=== PATIENT | male | born 1945 | race Caucasian/White ===

== ENCOUNTER 2022-09-20 07:11 | Emergency (ER) | payer MEDICARE, SELFPAY ==
[2022-09-20 07:25] VITALS: BP 155/104; PULSE 110; RESP 18; TEMP 36.7; O2SAT 98; BMI 34.0
[2022-09-20 07:56] VITALS: BP 152/99; PULSE 96; RESP 12; TEMP 36.4; O2SAT 93
[2022-09-20 08:07] LABS: Appearance Urine Clear; Color Urine Yellow; Glucose Urine UA Negative (Negative); Leukocyte Esterase Urine Negative (Negative); Nitrite Urine Negative (Negative); Urine Blood Negative (Negative); Urine Ketones Negative (Negative); Urine Protein Negative (Neg-Trace)
[2022-09-20 10:07] VITALS: BP 182/109; PULSE 94; RESP 16; TEMP 36.4; O2SAT 96
--- NOTE | 2022-09-20 10:53 | ED.MALEGU ---
HPI - Male Genitourinary General Chief complaint: Urogenital-Male Stated complaint: freq urination Time Seen by Provider: 09/20/22 08:55 Source: patient Mode of arrival: ambulatory Limitations: no limitations History of Present Illness HPI Narrative: 76 yold male with pmh of HTN and BPH presents to the ED for increase urinary freqency. patient states yesterday having dribblin stream and freqeunt use to the bathroom. patient denies any abdominal pain, nuasea, vomitting, fever, chills, hematuria, flank pain, penile discharge, or penile lesions. Patient states this morning his stream of urine is improving and becming normal Related Data Allergies Allergy/AdvReac Type Severity Reaction Status Date / Time No Known Allergies Allergy Unverified 06/18/20 14:34 Review of Systems Review of Systems: increase UA frequency Yes all other systems are reviewed and are negative Physical Exam Vital Signs: Vital Signs: Last Vital Signs Temp 97.5 F 09/20/22 10:07 Pulse 94 09/20/22 10:07 Resp 16 09/20/22 10:07 BP 182/109 H 09/20/22 10:07 Pulse Ox 96 09/20/22 10:07 O2 Del Method 09/20/22 10:07 BMI result Body Mass Index 34.0 Const: General: cooperative, healthy appearing, comfortable, no acute distress, well developed, alert, awake and Physically active Orientation/consciousness: oriented to person, oriented to place, oriented to time and patient oriented x3 HEENT: Head: Yes normal to inspection, Yes No palpable skull fracture present, Yes normocephalic, Yes atraumatic and No abrasion Eyes: General: appearance normal, both eyes and all related structures Neck: Neck: Yes normal visual inspection, Yes full ROM, Yes no lymphadenopathy, Yes no meningeal signs, Yes trachea midline, Yes supple, No anterior neck swelling and No tender Chest: Chest palpation & inspection: normal inspection of the chest and normal palpation of entire chest wall Resp: Effort & Inspection: normal respiratory effort and able to speak in complete sentences Auscultation: clear to auscultation bilaterally Cardio: Jugular venous distension: no JVD Heart sounds: S1 normal heart sound present and S2 normal heart sound present GI: Inspection: Yes normal to inspection and No abdominal wall ecchymosis Palpation (GI): Soft to palpation, not firm, nontender, no guarding and not rigid : General: No CVA tenderness and Yes no CVA tenderness Back/Spine/Pelvis: Back: no CVA tenderness, No CVA tenderness and No back tenderness Skin: General skin exam: no rashes or lesions noted, elasticity normal and turgor normal Neuro: Other: NIH score 0. General: oriented to person, oriented to place, oriented to time, patient oriented x3, gait normal, tone normal, moves all extremities, Normal light touch and pain sensation, no meningeal signs, no focal motor deficits, CN's II-XI intact bilaterally and normal sensation to monofilament Cranial nerves: Yes CN's II-XII intact bilaterally Cognition (Neuro): normal cognition Gait exam (Neuro): Normal gait present Motor exam (neuro): 5/5 motor strength present throughout Sensory Exam: Normal double simultaneous stimulation for sensation Extrem: General: Yes normal to inspection and Yes full ROM Psych: Appearance: grossly normal, well kempt and not disheveled Course Course Course Narrative: UA ordered. Reevaluation(s) Reevaluation #1: UA does not show any infection or blood. Not suspecting any kidney stones, urinary tract infection. Patient able to urinate on his own he states urinary stream is improving and getting back to baseline. Postvoid bladder scan 275. Presently patient does not need permanent Cannon but straight cath was offered and patient refused patient states he is feeling better does not feel distended and ill continued to urinate on his own. Patient informed to continue taking terazosin and call urology for follow-up. Patient informed to return to the ED if he has abdominal pain, nausea, vomiting, inability to urinate at all, just sensation of distension,or any other complaints. Patient did not take his high blood pressure medications this morning negative any neuro deficits. Patient informed to take his meds when he gets home. No further evaluation of blood pressure needed. Patient in distress Time: 11:05 Medical Decision Making Lab Data Labs: Lab Results 09/20/22 Range/Units 07:58 Urine Color Yellow Urine Appearance Clear Urine pH 6.0 (5.0-9.0) Ur Specific [place] 1.020 (1.005-1.025) Urine Protein Negative (Neg-Trace) mg/dL Urine Glucose (UA) Negative (Negative) mg/dL Urine Ketones Negative (Negative) mg/dL Urine Blood Negative (Negative) Urine Nitrite Negative (Negative) Ur Leukocyte Esterase Negative (Negative) Discharge Plan Discharge Clinical Impression: Benign prostatic hyperplasia Patient Disposition: Home, Self-Care Instructions: Enlarged Prostate (BPH) (ED) Additional Instructions: Please follow-up with urology. Return to the ED immediately for any abdominal pain, nausea, vomiting, fever, chills, inability to urine, testicular pain, bloody urine, flank pain, slurred speech, facial droop, paralysis of extremities and weakness, dizziness, loss of vision, or any other concerning symptoms. Referrals: [facility] [Provider Group] (BPH) Interventions: ED Discharge Assessment Last Done: 09/20/22 11:13 Discharge Date/Time: 09/20/22 11:14 Print Language: Hungarian
== END 2022-09-20 11:14 | disposition home or self-care (01) ==
PROVIDERS: Emergency Provider Emergency Medicine Emergency Medical Services; PCP Internal Medicine Endocrinology, Diabetes & Metabolism
DX: N40.0 Benign prostatic hyperplasia without lower urinary tract symptoms (principal)
CPT/HCPCS: 51798; 81003; 99283; 99284

== ENCOUNTER 2022-09-25 00:46 | Emergency (ER) | payer MEDICARE, SELFPAY ==
[2022-09-25 00:53] VITALS: BP 170/115; PULSE 86; RESP 16; TEMP 36.5; O2SAT 98; BMI 34.7
--- NOTE | 2022-09-25 01:34 | ED.MALEGU ---
HPI - Male Genitourinary General Chief complaint: Urogenital-Male Stated complaint: difficulty urinating Time Seen by Provider: 09/25/22 01:20 Source: patient Mode of arrival: ambulatory Limitations: no limitations History of Present Illness HPI Narrative: 76-year-old male history of BPH came in for being unable to urinate for the past 12 hours. Patient was seen 5 days ago for similar symptoms patient did not require Cannon catheter since he was able to urinate on his own, patient is already have an appointment with urologist on October 08. No fever, no chills, no abdominal pain, no nausea, no vomiting. Related Data Allergies Allergy/AdvReac Type Severity Reaction Status Date / Time No Known Allergies Allergy Unverified 06/18/20 14:34 Review of Systems Review of Systems: All other systems are reviewed and are negative Constitutional: Reports as per HPI and Reports no additional constitutional complaints Eyes: Reports as per HPI and Reports no additional eye complaints Reports system reviewed and no additional complaints, except as documented Cardiovascular: Reports as per HPI and Reports no additional cardiovascular complaints Respiratory: Reports as per HPI and Reports no additional respiratory complaints Gastrointestinal: Reports as per HPI and Reports no additional gastrointestinal complaints Genitourinary: Reports no additional female genitourinary complaints Musculoskeletal: Reports no additional musculoskeletal complaints Skin/Breast: Reports system reviewed and no additional complaints, except as docu Psychiatric: Reports no additional psychiatric complaints Endocrine: Reports no additional endocrine complaints Hematologic/Lymphatic: Reports no additional hematologic/lymphatic complaints Allergic/Immunologic: Reports no additional allergic/immunologic complaints Reports system reviewed and no additional complaints, except as documented and Reports Abnormal speech present [facility] Social History Social History Alcohol intake: former Smoked in Last 30 Days: No Use of substances other than those prescribed or required for medical reasons: Yes Substance Use Type: Marijuana Substance Use Frequency: Occasionally Last Used Substance: Weeks (ago) Any prior treatment program specific to substance use: No Advance Directives: No Physical Exam Vital Signs: Vital Signs: Last Vital Signs Temp 97.9 F 09/25/22 03:36 Pulse 74 09/25/22 03:36 Resp 16 09/25/22 03:36 BP 159/98 H 09/25/22 03:36 Pulse Ox 95 09/25/22 03:36 O2 Del Method 09/25/22 03:36 BMI result Body Mass Index 34.7 Vital signs have been reviewed as appeared to be correct. Blood pressure elevated. Heart rate normal. Respiration rate normal. Temperature normal. Oxygen saturation normal. Appearance: Alert. Oriented X3. No acute distress. Head: Normal external exam. Normocephalic. Atraumatic. No Hernandez signs noted. No raccoon eyes noted Eyes: PERRLA. EOMI. Conjunctiva and sclera normal. Eyelids normal. ENT: TM's Normal. Pharynx normal. Uvula midline. Moist mucous membranes. No trismus noted. No drooling noted. No muffled voice noted. Neck: Normal inspection. Neck supple. FROM. No adenopathy. Thyroid Normal. No meningeal signs. No neck mass noted. CVS: Normal heart rate and rhythm. Heart sound normal. No murmurs noted. Pulses normal throughout. Respiratory: No respiratory distress. Painless inspiration. Breath sounds normal. No wheezes/rales/rhonchi noted. Chest nontender. No accessory muscle usage noted or decreased air movement noted. Abdomen: Soft and nontender. Bowel sounds normal in all 4 quadrants. No distention noted. No organomegaly noted. No visible injury noted. Back: No CVA tenderness. Full range of motion noted. Skin: Skin warm and dry. Normal skin color. Normal skin turgor. No rashes/lesions/lacerations noted. Extremities: No lower extremity edema. Extremities exhibit normal range of motion. Extremities nontender. Neuro: Oriented X 3. Cranial nerve exam: II-XII are grossly intact No motor deficit. No sensory deficit. Reflexes normal. Course Course Course Narrative: 76-year-old male came in for acute urinary retention Cannon catheter was placed and 1 L of clear urine was drained, patient feels better, the plan was discussed with the patient to keep the Cannon catheter with leg bag and follow up with urologist that he is already have an appointment in 2 weeks. Blood pressure has improved. Medical Decision Making Differential Diagnosis Differential Diagnoses: The differential diagnosis associated with the presentation includes (Acute urinary retention, UTI, MOOK, obstructive stone, prostatic hyperplasia.) Lab Data MDM Lab Attestation statement: I reviewed the patient's lab results. Result Diagrams: 09/25/22 01:28 09/25/22 01:28 Labs: Lab Results 12/09/25/22 09/25/22 Range/Units 01:28 01:28 01:28 WBC 7.1 (4.8-10.8) X10*3/uL RBC 4.33 L (4.60-5.80) X10*6/uL Hgb 13.1 L (14.0-18.0) g/dl Hct 39.4 L (42.0-52.0) % MCV 91.0 (80.0-98.0) fL MCH 30.3 (27.0-33.0) pg MCHC 33.2 (31.0-36.0) g/dl RDW 12.9 (11.0-16.0) % Plt Count 161 (160-400) X10*3/uL MPV 10.7 (9.4-12.4) fL Absolute Nucleated RBC 0.000 (0.0-0.012) X10*3/uL Nucleated RBC % (auto) 0.0 (0.0-0.2) /100WBC Sodium 142 (135-145) mmol/L Potassium 3.9 (3.3-5.1) mmol/L Chloride 107 (96-108) mmol/L Carbon Dioxide 27 (22-29) mmol/L Anion Gap 12 (12-20) BUN 20 H (9-16) mg/dL Creatinine 1.07 (0.5-1.4) mg/dL Estim Creat Clear Calc 86.2 Estimated GFR > 60 Random Glucose 132 H (60-115) mg/dL Calcium 10.8 H (8.4-10.2) mg/dL Urine Color Yellow Urine Appearance Clear Urine pH 5.5 (5.0-9.0) Ur Specific [place] 1.015 (1.005-1.025) Urine Protein Negative (Neg-Trace) mg/dL Urine Glucose (UA) Negative (Negative) mg/dL Urine Ketones Negative (Negative) mg/dL Urine Blood Negative (Negative) Urine Nitrite Negative (Negative) Ur Leukocyte Esterase Negative (Negative) Discharge Plan Discharge Clinical Impression: Acute retention of urine Patient Disposition: Home, Self-Care Instructions: Urinary Retention in Men (ED), Cannon Catheter Placement and Care (ED) Referrals: Annie Vera MD [Physician] -
[2022-09-25 01:36] LABS: Hematocrit 39.4 % (42.0-52.0); Hemoglobin 13.1 g/dl (14.0-18.0); Mean Corpuscular HGB Conc 33.2 g/dl (31.0-36.0); Mean Corpuscular Hemoglobin 30.3 pg (27.0-33.0); Mean Platelet Volume 10.7 fL (9.4-12.4); Platelet Count 161 X10*3/uL (160-400); Red Blood Count 4.33 X10*6/uL (4.60-5.80); Red Cell Distribution Width 12.9 % (11.0-16.0); White Blood Count 7.1 X10*3/uL (4.8-10.8)
[2022-09-25 01:46] LABS: Appearance Urine Clear; Color Urine Yellow; Glucose Urine UA Negative (Negative); Leukocyte Esterase Urine Negative (Negative); Nitrite Urine Negative (Negative); PH 5.5 (5.0-9.0); Specific Gravity - Urine 1.015 (1.005-1.025); Urine Blood Negative (Negative); Urine Ketones Negative (Negative); Urine Protein Negative (Neg-Trace)
[2022-09-25 01:47] LABS: Anion Gap 12 (12-20); Blood Urea Nitrogen 20 mg/dL (9-16); Calcium 10.8 mg/dL (8.4-10.2); Carbon Dioxide 27 mmol/L (22-29); Chloride 107 mmol/L (96-108); Creatinine Clr Calc Pharmacy 86.2; Estimated Glomerular Filt Rate > 60; Glucose Random 132 mg/dL (60-115); Potassium 3.9 mmol/L (3.3-5.1); Sodium 142 mmol/L (135-145)
--- NOTE | 2022-09-25 02:16 | PC.NURSE ---
Bladder scanned by [facility]il tech with >999 mL of urine present in pt's bladder. Results reported to Dr. Ma. ordered to insert F/C 16 Fr, inflate balloon with 10 mL of sterile water. F/C inserted per MD orders with 1400 ml of yellow, clear urine drained in F/C bag after cath insertion. Patient tolerated procedure well and reported relief in pain following F/C insertion.
[2022-09-25 03:36] VITALS: BP 159/98; PULSE 74; RESP 16; TEMP 36.6; O2SAT 95
[2022-09-25 04:14] VITALS: BP 166/106; PULSE 74; RESP 16; TEMP 36.6; O2SAT 95
== END 2022-09-25 04:19 | disposition home or self-care (01) ==
PROVIDERS: Emergency Provider Emergency Medicine; PCP Internal Medicine Endocrinology, Diabetes & Metabolism
DX: R33.9 Retention of urine, unspecified (principal)
CPT/HCPCS: 36415; 80048; 81003; 85027; 99285

== ENCOUNTER 2022-09-25 09:24 | Emergency (ER) | payer MEDICARE, SELFPAY ==
[2022-09-25 09:28] VITALS: BP 151/92; PULSE 102; RESP 18; TEMP 37.1; O2SAT 98; BMI 35.6
--- NOTE | 2022-09-25 09:59 | ED_ITS ---
HPI - Male Genitourinary General Chief complaint: Urogenital-Male Stated complaint: catheter issue Time Seen by Provider: 09/25/22 09:47 Source: patient Mode of arrival: ambulatory History of Present Illness HPI Narrative: 76-year-old male with a past medical history of BPH s/p catheter placement for urinary retention this morning around 01:00AM presenting to the ED as was unable to switch to leg bag at home from overnight bag. Denies fever, chills, nausea, vomiting, abdominal pain, back pain/flank pain. Related Data Allergies Allergy/AdvReac Type Severity Reaction Status Date / Time No Known Allergies Allergy Unverified 06/18/20 14:34 Review of Systems Review of Systems: Constitutional: No Fever, No Chills ENT/Mouth: No Ear Pain, No Nasal Congestion, No Sinus Pain, No Hoarseness, No sore throat, No Rhinorrhea, No Swallowing Difficulty Cardiovascular: No Chest Pain, No SOB Respiratory: No Cough, No Sputum Gastrointestinal: No Nausea, No Vomiting, No Diarrhea, No Constipation, No Abdominal pain Genitourinary: No Dysuria, No Urinary Frequency, No Hematuria, No Urinary Inc ontinence/retention, No Urgency, No Flank Pain Musculoskeletal: No joint pain, No Myalgias, No Joint Swelling Skin: No Skin Lesions, No rash Neuro: No Weakness, No Numbness Yes all other systems are reviewed and are negative Constitutional: Constitutional: Reports as per [facility] Past Medical History Attestation statement: The following information was validated with the patient. Social History Social History Alcohol intake: former Substance Use Type: Marijuana Advance Directives: No Physical Exam Vital Signs: Vital Signs: Last Vital Signs Temp 98.8 F 09/25/22 09:28 Pulse 102 H 09/25/22 09:28 Resp 18 09/25/22 09:28 BP 151/92 H 09/25/22 09:28 Pulse Ox 98 09/25/22 09:28 O2 Del Method 09/25/22 09:28 BMI result Body Mass Index 35.6 Const: General: cooperative, healthy appearing and no acute distress Orientation/consciousness: patient oriented x3 Limitations: no limitations HEENT: Head: Yes normal to inspection and Yes atraumatic Ears: hearing g rossly normal bilaterally General nose exam: Normal external nose present Face and sinus: Yes normal facial exam Eyes: General: appearance normal, both eyes and all related structures EOM: EOMs intact bilaterally Neck: Neck: Yes normal visual inspection and Yes no meningeal signs Resp: Effort & Inspection: normal respiratory effort and no respiratory dist ress Cardio: Rate: regular rate Heart sounds: S1 normal heart sound present and S2 normal heart sound present GI: Inspection: Yes normal to inspection Palpation (GI): Soft to palpation, nontender, no guarding and not rigid Skin: Rashes: no rashes Wounds: no wounds Neuro: General: patient oriented x3, tone normal and no meningeal signs Gait exam (Neuro): Normal gait present Extrem: General: Yes normal to inspection Course Course Course Narrative: -91cc on bladder scan > balbuena bag changed & patient educated on changing, was able to do it himself in the ED Results discussed with patient including worrisome signs and symptoms and strict return precautions, and when to return to the emergency department. They verbalized understanding and feel safe for discharge at this time. Medical Decision Making Medical Decision Making [facility] Narrative: 76-year-old male with a past medical history of BPH s/p catheter placement for urinary retention this morning around 01:00AM presenting to the ED as was unable to switch to leg bag at home from overnight bag. On exam mildly tachycardic, NAD, nontoxic appearing, catheter draining yellow/blood-tinged urine, abdomen soft/nontender. Concern patient may have dislodged Balbuena vs mechanical issue. Lower suspicion for UTI Plan: Bladder scan, switch to leg bag, educate Patient has follow-up with Urology on October 08 Differential Diagnosis Differential Diagnoses: The differential diagnosis associated with the presentation includes Admission/Observation Consideration of admission/observation: Escalation of care including admission/observation considered Discharge Plan Discharge Clinical Impression: Balbuena catheter problem Patient Disposition: Home, Self-Care Instructions: Balbuena Catheter Placement and Care (ED) Additional Instructions: Your catheter bag was changed today in the emergency department, please change at home as instructed. If the bag feels with red/bloody urine, is not feeling, you develop abdominal pain, back pain, or fever return to the emergency department Please follow-up with urology as scheduled Referrals: [facility] [[place] Group] - 1 week Interventions: ED Discharge Assessment Last Done: 12/25/22 10:26 Discharge Date/Time: 12/25/22 10:26
--- NOTE | 2022-09-25 10:14 | PC.NURSE ---
bladder scan performed, pt educated on how to shredding machine knife changer from night bag to leg bag as pt states he was not educated on discharge yesterday. pt was able to return demonstrate of how to do the shredding machine knife changer and was able to appropriately attach the leg bag to his leg as well.
== END 2022-09-25 10:26 | disposition home or self-care (01) ==
PROVIDERS: Emergency Provider Student in an Organized Health Care Education/Training Program; PCP Internal Medicine Endocrinology, Diabetes & Metabolism
DX: T83.028A Displacement of other urinary catheter, initial encounter (principal); R33.9 Retention of urine, unspecified; Y73.8 Miscellaneous gastroenterology and urology devices associated with adverse incidents, not elsewhere classified; Y92.9 Unspecified place or not applicable; Z79.899 Other long term (current) drug therapy
CPT/HCPCS: 36415; 51798; 80048; 81003; 85027; 99283; 99285

== ENCOUNTER 2022-10-09 20:08 | Emergency (ER) | payer MEDICARE, SELFPAY ==
[2022-10-09 20:20] VITALS: BP 155/105; PULSE 87; RESP 20; TEMP 36.4; O2SAT 95; BMI 34.7
--- NOTE | 2022-10-09 20:20 | ED_ITS ---
HPI - Male Genitourinary General Chief complaint: Urogenital-Male Stated complaint: Cannon issues Time Seen by Provider: 10/09/22 21:26 Related Data Home Medications Medication Instructions Recorded Confirmed furosemide 20 mg tablet 20 mg PO DAILY 10/10/22 10/10/22 losartan 100 mg tablet 100 mg PO DAILY 10/10/22 10/10/22 pravastatin 40 mg tablet 40 mg PO DAILY 10/10/22 10/10/22 terazosin 2 mg capsule 2 mg PO BEDTIME 10/10/22 10/10/22 terazosin 5 mg capsule 5 mg PO BEDTIME 10/10/22 10/10/22 Previous Rx's Medication Instructions Recorded cefuroxime axetil 500 mg tablet 500 mg PO BID #14 tabs 10/09/22 finasteride 5 mg tablet 5 mg PO DAILY 90 days #90 tabs 10/10/22 Allergies Allergy/AdvReac Type Severity Reaction Status Date / Time No Known Allergies Allergy Verified 10/10/22 20:54 [facility] Social History Social History Alcohol intake: former Substance Use Type: Marijuana Physical Exam Vital Signs: Vital Signs: Last Vital Signs Temp 97.6 F 10/09/22 20:20 Pulse 87 10/09/22 20:20 Resp 20 10/09/22 20:20 BP 155/105 H 10/09/22 20:20 Pulse Ox 95 10/09/22 20:20 O2 Del Method 10/09/22 20:20 BMI result Body Mass Index 34.7 Course Course Course Narrative: RME-20:21PM - 77-year-old male presenting to the ER with Cannon problems. Reports that when he was showering today he believes it might of came out a little bit. He reports he does not believe it is draining properly. He reports he is having pain since then. He denies any other symptoms related to this. Plan: Patient can be sent to the ER for further evaluation treatment. Medications Administered Discontinued Medications Generic Name Dose Route Start Last Admin Trade Name Freq PRN Reason Stop Dose Admin Cefuroxime Axetil 500 mg 10/09/22 22:34 10/09/22 22:45 Cefuroxime Axetil 500 Mg Tablet PO 10/09/22 22:35 500 mg ONCE ONE Administration Lidocaine HCl 10 ml 10/09/22 21:34 10/09/22 21:58 Lidocaine Hcl 2 % Urojet 10 Ml Jel.Pf.Niels TOPICAL 10/09/22 21:35 10 ml ONCE ONE Administration Medical Decision Making Lab Data Labs: Lab Results 10/09/22 Range/Units 21:59 Urine Color [place] A Urine Appearance Cloudy Urine pH 6.0 (5.0-9.0) Ur Specific [place] 1.015 (1.005-1.025) Urine Protein 100 (2+) H (Neg-Trace) mg/dL Urine Glucose (UA) Negative (Negative) mg/dL Urine Ketones Negative (Negative) mg/dL Urine Blood Large (3+) H (Negative) Urine Nitrite Negative (Negative) Ur Leukocyte Esterase Large (3+) H (Negative) Urine RBC >20 H (0-2) /HPF Urine WBC >50 H (0-5) /HPF Ur Squamous Epith Cells 0-2 (0-2) /HPF Urine Bacteria 4+ (None Seen) Hyaline Casts 0-2 (0-2) /LPF Discharge Plan Discharge Clinical Impression: Acute retention of urine, Urinary tract infection Patient Disposition: Home, Self-Care Instructions: Cannon Catheter Placement and Care (ED) Prescriptions: New cefuroxime axetil 500 mg tablet 500 mg PO BID Qty: 14 0RF No Action furosemide 20 mg tablet 20 mg PO DAILY losartan 100 mg tablet 100 mg PO DAILY pravastatin 40 mg tablet 40 mg PO DAILY terazosin 5 mg capsule 5 mg PO BEDTIME terazosin 2 mg capsule 2 mg PO BEDTIME finasteride 5 mg tablet 5 mg PO DAILY 90 Days Qty: 90 0RF Referrals: Michael Lambert MD [Physician] - Interventions: ED Discharge Assessment Last Done: 10/09/22 22:55 Discharge Date/Time: 10/09/22 22:56
--- NOTE | 2022-10-09 21:35 | ED.MALEGU ---
HPI - Male Genitourinary General Chief complaint: Urogenital-Male Stated complaint: Cannon issues Time Seen by Provider: 10/09/22 21:26 Source: patient Mode of arrival: ambulatory Limitations: no limitations History of Present Illness HPI Narrative: 77-year-old male history of urinary tension Cannon catheter was placed on 09/25/2022 was functioning fine until last night when he was taking a shower and accidentally stepped on a Cannon catheter tube causing it to dislodge and causing bleeding inside the back, there is little discomfort, patient stated that the Cannon is not draining appropriately needs to lean forward in order for the Cannon to drain, patient is not taking blood thinner, patient is scheduled to see a urologist tomorrow. Is still unable to urinate on his own. Related Data Previous Rx's Medication Instructions Recorded cefuroxime axetil 500 mg tablet 500 mg PO BID #14 tabs 10/09/22 Allergies Allergy/AdvReac Type Severity Reaction Status Date / Time No Known Allergies Allergy Verified 10/09/22 20:24 Review of Systems Review of Systems: All other systems are reviewed and are negative Constitutional: Reports as per HPI and Reports no additional constitutional complaints Eyes: Reports as per HPI and Reports no additional eye complaints Reports system reviewed and no additional complaints, except as documented Cardiovascular: Reports as per HPI and Reports no additional cardiovascular complaints Respiratory: Reports as per HPI and Reports no additional respiratory complaints Gastrointestinal: Reports as per HPI and Reports no additional gastrointestinal complaints Genitourinary: Reports no additional female genitourinary complaints Musculoskeletal: Reports no additional musculoskeletal complaints Skin/Breast: Reports system reviewed and no additional complaints, except as docu Psychiatric: Reports no additional psychiatric complaints Endocrine: Reports no additional endocrine complaints Hematologic/Lymphatic: Reports no additional hematologic/lymphatic complaints Allergic/Immunologic: Reports no additional allergic/immunologic complaints Reports system reviewed and no additional complaints, except as documented and Reports Abnormal speech present [facility] Social History Social History Alcohol intake: former Substance Use Type: Marijuana Advance Directives: No Advance Directives Information Provided: Yes Physical Exam Vital Signs: Vital Signs: Last Vital Signs Temp 97.6 F 10/09/22 20:20 Pulse 87 10/09/22 20:20 Resp 20 10/09/22 20:20 BP 155/105 H 10/09/22 20:20 Pulse Ox 95 10/09/22 20:20 O2 Del Method 10/09/22 20:20 BMI result Body Mass Index 34.7 Vital signs have been reviewed as appeared to be correct. Blood pressure normal. Heart rate normal. Respiration rate normal. Temperature normal. Oxygen saturation normal. Appearance: Alert. Oriented X3. No acute distress. Head: Normal external exam. Normocephalic. Atraumatic. No Hernandez signs noted. No raccoon eyes noted Eyes: PERRLA. EOMI. Conjunctiva and sclera normal. Eyelids normal. ENT: TM's Normal. Pharynx normal. Uvula midline. Moist mucous membranes. No trismus noted. No drooling noted. No muffled voice noted. Neck: Normal inspection. Neck supple. FROM. No adenopathy. Thyroid Normal. No meningeal signs. No neck mass noted. CVS: Normal heart rate and rhythm. Heart sound normal. No murmurs noted. Pulses normal throughout. Respiratory: No respiratory distress. Painless inspiration. Breath sounds normal. No wheezes/rales/rhonchi noted. Chest nontender. No accessory muscle usage noted or decreased air movement noted. Abdomen: Soft and nontender. Bowel sounds normal in all 4 quadrants. No distention noted. No organomegaly noted. No visible injury noted. exam: Circumcised, small amount of blood on the meatus, no active bleeding. Back: No CVA tenderness. Full range of motion noted. Skin: Skin warm and dry. Normal skin color. Normal skin turgor. No rashes/lesions/lacerations noted. Extremities: No lower extremity edema. Extremities exhibit normal range of motion. Extremities nontender. Neuro: Oriented X 3. Cranial nerve exam: II-XII are grossly intact No motor deficit. No sensory deficit. Reflexes normal. Course Course Course Narrative: Will replace the Cannon catheter. Start on cefuroxime for UTI. Medications Administered Discontinued Medications Generic Name Dose Route Start Last Admin Trade Name Freq PRN Reason Stop Dose Admin Lidocaine HCl 10 ml 10/09/22 21:34 10/09/22 21:58 Lidocaine Hcl 2 % Urojet 10 Ml Jel.Pf.Niels TOPICAL 10/09/22 21:35 10 ml ONCE ONE Administration Medical Decision Making Differential Diagnosis Differential Diagnoses: The differential diagnosis associated with the presentation includes (Urine retention, UTI, urethral bleeding, Cannon catheter replacement.) Lab Data Labs: Lab Results 10/09/22 Range/Units 21:59 Urine Color [place] A Urine Appearance Cloudy Urine pH 6.0 (5.0-9.0) Ur Specific [place] 1.015 (1.005-1.025) Urine Protein 100 (2+) H (Neg-Trace) mg/dL Urine Glucose (UA) Negative (Negative) mg/dL Urine Ketones Negative (Negative) mg/dL Urine Blood Large (3+) H (Negative) Urine Nitrite Negative (Negative) Ur Leukocyte Esterase Large (3+) H (Negative) Urine RBC >20 H (0-2) /HPF Urine WBC >50 H (0-5) /HPF Ur Squamous Epith Cells 0-2 (0-2) /HPF Urine Bacteria 4+ (None Seen) Hyaline Casts 0-2 (0-2) /LPF Discharge Plan Discharge Clinical Impression: Acute retention of urine, Urinary tract infection Patient Disposition: Home, Self-Care Instructions: Cannon Catheter Placement and Care (ED) Prescriptions: New cefuroxime axetil 500 mg tablet 500 mg PO BID Qty: 14 0RF Referrals: Michael Lambert MD [Physician] -
[2022-10-09] MEDS: Lidocaine HCl 2 % Urojet 10 ML JEL.PF.APP TOPICAL (21:58)
--- NOTE | 2022-10-09 21:58 | PC.NURSE ---
Patient reports F/C is not working properly. 16 F/C replaced with new 16 Fr F/C, balloon inflated with 10 mL of sterile water, 250 mL of blood tinged urine noted in a new balbuena cath bag. Urine specimen collected and sent to lab by fuel retrofitting technician.
[2022-10-09 22:17] LABS: Bacteria Urine 4+ (None Seen); Hyaline Casts Urine 0-2 /LPF (0-2); RBC Urine >20 /HPF (0-2); Squamous Epithelial Cell Urine 0-2 /HPF (0-2); WBC Urine >50 /HPF (0-5)
[2022-10-09 22:20] LABS: Appearance Urine Cloudy; Color Urine Orange; Glucose Urine UA Negative (Negative); Leukocyte Esterase Urine Large (3+) (Negative); Nitrite Urine Negative (Negative); Specific Gravity - Urine 1.015 (1.005-1.025); UACC Culture Trigger YES; UMIC TRIGGER UACC YES; Urine Blood Large (3+) (Negative); Urine Ketones Negative (Negative); Urine Protein 100 (2+) mg/dL (Neg-Trace)
== END 2022-10-09 22:56 | disposition home or self-care (01) ==
PROVIDERS: Emergency Provider Emergency Medicine
DX: R33.9 Retention of urine, unspecified (principal); N39.0 Urinary tract infection, site not specified; Z79.899 Other long term (current) drug therapy
CPT/HCPCS: 81001; 87086; 87088; 87186; 99284

== ENCOUNTER → 2022-10-10 14:14 | Outpatient (BNVA) | payer MEDICARE, SELFPAY | PROVIDERS: PCP Internal Medicine Endocrinology, Diabetes & Metabolism; Visit Provider Nurse Practitioner Family | DX: N40.1 Benign prostatic hyperplasia with lower urinary tract symptoms (principal); R33.9 Retention of urine, unspecified | CPT/HCPCS: 99202 ==

== ENCOUNTER 2022-10-14 16:06 | Emergency (ER) | payer MEDICARE, SELFPAY ==
[2022-10-14 16:33] VITALS: BP 104/72; PULSE 99; RESP 18; TEMP 36.9; O2SAT 96; BMI 34.7
--- NOTE | 2022-10-14 16:35 | ED_ITS ---
HPI - General Adult General Chief complaint: General Medical <Juliane Kong NP - Last Filed: 10/14/22 16:37> Stated complaint: balbuena catheter isn't draining <Juliane Kong NP - Last Filed: 10/14/22 16:37> Time Seen by Provider: 10/14/22 17:20 <Juliane Kong NP - Last Filed: 10/14/22 16:37> Source: patient <ALEX Rasmussen - Last Filed: 10/14/22 18:36> Mode of arrival: ambulatory <ALEX Rasmussen - Last Filed: 10/14/22 18:36> Limitations: no limitations <ALEX Rasmussen Last Filed: 10/14/22 18:36> History of Present Illness HPI narrative: 77 yo male with history of BPH with acute urinary retention requiring Balbuena catheter on 09/25/22 who presents to the ER for evaluation of his Balbuena not draining for the last several hours after he accidentally stepped on the tubing. He feels like his bladder is full. He reports some trickling of blood at the tip of his penis and soreness there. He does not have any urine in the Balbuena bag since noon time. He just saw Urology in the office this week with a plan for a voiding trial in 2 weeks. He is on medications for his prostate. He denies any nausea, vomiting, fever, chills. He has suprapubic discomfort due to bladder distention. <ALEX Rasmussen - Last Filed: 10/14/22 18:36> MD complaint: Balbuena catheter not draining <ALEX Rasmussen - Last Filed: 10/14/22 18:36> Onset (ago): hour(s) <ALEX Rasmussen Last Filed: 10/14/22 18:36> Location: pelvis and genitals <ALEX Rasmussen Last Filed: 10/14/22 18:36> Severity: moderate <ALEX Rasmussen Last Filed: 10/14/22 18:36> Severity scale (1-10): 5 <ALEX Rasmussen Last Filed: 10/14/22 18:36> Quality: aching <ALEX Rasmussen - Last Filed: 10/14/22 18:36> Pain Consistency: constant <ALEX Rasmussen - Last Filed: 10/14/22 18:36> Relieving factors: none <ALEX Rasmussen - Last Filed: 10/14/22 18:36> Exacerbating factors: none <ALEX Rasmussen - Last Filed: 10/14/22 18:36> Associated symptoms: other (Anxiety) <ALEX Rasmussen - Last Filed: 10/14/22 18:36> Treatments prior to arrival: none <ALEX Rasmussen - Last Filed: 10/14/22 18:36> Related Data Home medications: Home Medications Medication Instructions Recorded Confirmed furosemide 20 mg tablet 20 mg PO DAILY 10/10/22 10/10/22 losartan 100 mg tablet 100 mg PO DAILY 10/10/22 10/10/22 pravastatin 40 mg tablet 40 mg PO DAILY 10/10/22 10/10/22 terazosin 2 mg capsule 2 mg PO BEDTIME 10/10/22 10/10/22 terazosin 5 mg capsule 5 mg PO BEDTIME 10/10/22 10/10/22 Previous Rx's Medication Instructions Recorded cefuroxime axetil 500 mg tablet 500 mg PO BID #14 tabs 10/09/22 finasteride 5 mg tablet 5 mg PO DAILY 90 days #90 tabs 10/10/22 <Juliane Kong NP - Last Filed: 10/14/22 16:37> Allergies/adverse reactions: Allergies Allergy/AdvReac Type Severity Reaction Status Date / Time No Known Allergies Allergy Verified 10/10/22 20:54 <Juliane Kong NP - Last Filed: 10/14/22 16:37> Review of Systems Review of Systems: Yes all other systems are reviewed and are negative <ALEX Rasmussen - Last Filed: 10/14/22 18:36> [facility] Social History Social History: Social History Alcohol intake: former Substance Use Type: Marijuana Advance Directives: No Advance Directives Information Provided: No <Juliane Kong NP - Last Filed: 10/14/22 16:37> Physical Exam ED Vital Signs: Vital Signs - 24 hr 10/14/22 16:33 Temperature 98.4 F Pulse Rate 99 Respiratory Rate 18 Blood Pressure 104/72 Pulse Oximetry 96 Oxygen Delivery Method Room Air BMI result Body Mass Index 34.7 <Juliane Kong NP - Last Filed: 10/14/22 16:37> Vital Signs - 24 hr 10/14/22 16:33 Temperature 98.4 F Pulse Rate 99 Respiratory Rate 18 Blood Pressure 104/72 Pulse Oximetry 96 Oxygen Delivery Method Room Air BMI result Body Mass Index 34.7 <ALEX Rasmussen - Last Filed: 10/14/22 18:36> Appearance: Alert. Oriented X3. No acute distress. HEENT: Normal external inspection CVS: Normal heart rate and rhythm. Pulses normal. Respiratory: No respiratory distress. Breath sounds normal. Abdomen: Soft with suprapubic tenderness, mild fullness noted. Normal +BS x4 : Dried blood in the patient's underwear, small amounts. Urethral meatus with some dried blood at the tip. Balbuena catheter in place with no urine draining, bag is empty. Skin: Skin warm and dry. Normal skin color. Normal skin turgor. No rashes. Extremities: No lower extremity edema. Neuro: Oriented X 3. Grossly normal, nonfocal <ALEX Rasmussen - Last Filed: 10/14/22 18:36> Course Course Course Narrative: This is a rapid medical exam. Defer additional HPI, ROS, PE to primary provider. 77 yo male who has chronic balbuena here because he is concerned his balbuena catheter is dislodged because it is not draining. He tells me he pulled on it today because it was wrapped around his leg which he believes dislodged it. No abdominal pain, feels well otherwise. VSS <Juliane Kong NP - Last Filed: 10/14/22 16:37> Reevaluation(s) Reevaluation #1: Sixteen [place] Balbuena catheter was removed. Patient attempted to void but was unsuccessful. Replacement of a 16 [place] Balbuena was attempted and was unsuccessful. Ultimately a 16 [place] coude catheter was placed with success. Patient tolerated well. Clear yellow urine is draining with tiny blood clots. No gross hematuria. He is on antibiotics for UTI at this time. He has follow-up with Urology. At this time is stable for discharge home. <ALEX Rasmussen - Last Filed: 10/14/22 18:36> Medications Administered Discontinued Medications Generic Name Dose Route Start Last Admin Trade Name Freq PRN Reason Stop Dose Admin Lidocaine HCl 1 appl 10/14/22 17:37 10/14/22 18:26 Lidocaine Hcl 4 % [id number] 4 Ml TOPICAL 10/14/22 17:38 Not Given ONCE ONE Lidocaine HCl 10 ml 10/14/22 18:15 10/14/22 18:26 Lidocaine Hcl 2 % Urojet 10 Ml Jel.Pf.Niels TOPICAL 10/14/22 18:16 10 ml ONCE ONE Administration <Juliane Kong NP - Last Filed: 10/14/22 16:37> Medications Administered Discontinued Medications Generic Name Dose Route Start Last Admin Trade Name Freq PRN Reason Stop Dose Admin Lidocaine HCl 1 appl 10/14/22 17:37 10/14/22 18:26 Lidocaine Hcl 4 % [id number]-H-[id number] 4 Ml TOPICAL 10/14/22 17:38 Not Given ONCE ONE Lidocaine HCl 10 ml 10/14/22 18:15 10/14/22 18:26 Lidocaine Hcl 2 % Urojet 10 Ml Jel.Pf.Niels TOPICAL 10/14/22 18:16 10 ml ONCE ONE Administration <ALEX Rasmussen - Last Filed: 10/14/22 18:36> Procedures Catheter Insertion (Urinary) Date of insertion: 10/14/22 <ALEX Rasmussen - Last Filed: 10/14/22 18:36> Time of insertion: 18:25 <ALEX Rasmussen - Last Filed: 10/14/22 18:36> Reason for placing: Yes <ALEX Rasmussen - Last Filed: 10/14/22 18:36> Reason for placing indwelling catheter: Acute urinary retention <ALEX Rasmussen - Last Filed: 10/14/22 18:36> Bladder scan/ultrasound used before catheterization: No <ALEX Rasmussen - Last Filed: 10/14/22 18:36> Antiseptic solution prep: Povidone-Iodine <ALEX Rasmussen - Last Filed: 10/14/22 18:36> Topical anesthesia used: Yes <ALEX Rasmussen Last Filed: 10/14/22 18:36> Catheter type/location: Coude <ALEX Rasmussen - Last Filed: 10/14/22 18:36> Size ([place] African): 16 <ALEX Rasmussen Last Filed: 10/14/22 18:36> Catheter balloon amount: 10 <ALEX Rasmussen Last Filed: 10/14/22 18:36> Results: successfully catheterized-immediate flow and retried with different size/type catheter <ALEX Rasmussen Last Filed: 10/14/22 18:36> Procedure performed: without complications <ALEX Rasmussen - Last Filed: 10/14/22 18:36> Comment: regular 16 japanese would not pass, successful placement w/ coude <ALEX Rasmussen - Last Filed: 10/14/22 18:36> Medical Decision Making Medical Decision Making MDM Narrative: 77-year-old male with acute onset of urinary retention due to BPH requiring Balbuena catheter placement on [place] presents to the ER for malfunctioning Balbuena after stepping on it. Most likely due to trauma and dislodgement. Less likely obstruction, UTI <ALEX Rasmussen - Last Filed: 10/14/22 18:36> Differential Diagnosis Differential Diagnoses: The differential diagnosis associated with the presentation includes <ALEX Rasmussen Last Filed: 10/14/22 18:36> Traumatic dislodgement, up against bladder wall, UTI, obstruction, false track <ALEX Rasmussen Last Filed: 10/14/22 18:36> External Record Review External record reviewed: Inpatient record, Office record and Outpatient record <ALEX Rasmussen Last Filed: 10/14/22 18:36> Prescription Management I considered prescription management with: Pain Medication and Antibiotic <ALEX Rasmussen Last Filed: 10/14/22 18:36> Critical Care Time Critical Care Time Critical Care Time: No <ALEX Rasmussen Last Filed: 10/14/22 18:36> Discharge Plan Discharge Clinical Impression: Displacement of Balbuena catheter <Juliane Kong NP - Last Filed: 10/14/22 16:37> Patient Disposition: Home, Self-Care <Juliane Kong NP - Last Filed: 10/14/22 16:37> Instructions: Urinary Retention in Men (ED), Enlarged Prostate (BPH) (ED) <Juliane Kong NP - Last Filed: 10/14/22 16:37> Additional Instructions: Your catheter was replaced today. Recommend following up with Urology in 2 weeks as scheduled for a voiding trial. <Juliane Kong NP - Last Filed: 10/14/22 16:37> Prescriptions: No Action cefuroxime axetil 500 mg tablet 500 mg PO BID Qty: 14 0RF furosemide 20 mg tablet 20 mg PO DAILY losartan 100 mg tablet 100 mg PO DAILY pravastatin 40 mg tablet 40 mg PO DAILY terazosin 5 mg capsule 5 mg PO BEDTIME terazosin 2 mg capsule 2 mg PO BEDTIME finasteride 5 mg tablet 5 mg PO DAILY 90 Days Qty: 90 0RF <Juliane Kong NP - Last Filed: 10/14/22 16:37>
[2022-10-14] MEDS: Lidocaine HCl 2 % Urojet 10 ML JEL.PF.APP TOPICAL (18:26)
== END 2022-10-14 19:03 | disposition home or self-care (01) ==
PROVIDERS: Emergency Provider Emergency Medicine
DX: T83.028A Displacement of other urinary catheter, initial encounter (principal); Y73.2 Prosthetic and other implants, materials and accessory gastroenterology and urology devices associated with adverse incidents; Y92.9 Unspecified place or not applicable; Z79.899 Other long term (current) drug therapy
CPT/HCPCS: 51702; 99284

== ENCOUNTER → 2022-10-24 09:20 | Outpatient (BNVA) | payer MEDICARE, SELFPAY | PROVIDERS: PCP Internal Medicine Endocrinology, Diabetes & Metabolism; Visit Provider Nurse Practitioner Family | DX: R33.9 Retention of urine, unspecified (principal) | CPT/HCPCS: 51700; 51798 ==

== ENCOUNTER → 2022-11-25 08:48 | Outpatient (BNVA) | payer MEDICARE, SELFPAY | PROVIDERS: PCP Internal Medicine Endocrinology, Diabetes & Metabolism; Visit Provider Urology | DX: N40.1 Benign prostatic hyperplasia with lower urinary tract symptoms (principal); R33.8 Other retention of urine | CPT/HCPCS: 51702; 52000; 99212 ==

== ENCOUNTER → 2022-12-30 08:59 | Outpatient (BNVA) | payer MEDICARE, SELFPAY | PROVIDERS: PCP Internal Medicine Endocrinology, Diabetes & Metabolism; Visit Provider Urology | DX: R33.9 Retention of urine, unspecified (principal) | CPT/HCPCS: 51700; 51702; 99212 ==

== ENCOUNTER → 2023-01-27 08:58 | Outpatient (BNVA) | payer MEDICARE, SELFPAY | PROVIDERS: PCP Internal Medicine Endocrinology, Diabetes & Metabolism; Visit Provider Urology | DX: N40.1 Benign prostatic hyperplasia with lower urinary tract symptoms (principal); R33.9 Retention of urine, unspecified | CPT/HCPCS: 51700; 99212 ==

== ENCOUNTER 2023-04-18 12:08 | Outpatient (REF) | payer MEDICARE, SELFPAY ==
[2023-04-18 13:13] LABS: Appearance Urine Cloudy; Color Urine Yellow; Glucose Urine UA Negative (Negative); Leukocyte Esterase Urine Large (3+) (Negative); Nitrite Urine Positive (Negative); Specific Gravity - Urine 1.015 (1.005-1.025); UMIC TRIGGER UA YES; Urine Blood Negative (Negative); Urine Ketones Negative (Negative); Urine Protein Trace mg/dL (Neg-Trace)
[2023-04-18 13:16] LABS: Bacteria Urine 4+ (None Seen); Hyaline Casts Urine 0-2 /LPF (0-2); Squamous Epithelial Cell Urine 0-2 /HPF (0-2); WBC Urine >50 /HPF (0-5)
== END 2023-04-18 12:09 | disposition home or self-care (01) ==
LOC: HO.LAB 12:08
PROVIDERS: PCP Internal Medicine Endocrinology, Diabetes & Metabolism; Visit Provider Urology
DX: R39.9 Unspecified symptoms and signs involving the genitourinary system (principal); R31.29 Other microscopic hematuria
CPT/HCPCS: 81001; 87086; 87088; 87186

== ENCOUNTER 2023-07-26 09:00 | Outpatient (AMB) | payer MEDICARE, SELFPAY ==
--- NOTE | 2023-07-26 09:14 | A.OFFVIS_ITS ---
Intake Intake Visit Reasons: 6m/retention/vt Intake Note: Patient is Present for Follow Up Urology Medication: Finasteride, Terazosin Antibiotic Allergies: None Blood Thinners: None [facility]acy: [facility] Patient self Cath Allergies No Known Allergies Allergy (Verified 07/26/23 09:17) HPI HPI Comments History of Present Illness Details Artis is a pleasant male. He is a patient of Dr. Galenao. Presents for the following urologic conditions - lower urinary tract symptoms with urin sara retention - bladder diverticulum - neurogenic blad bernardino Doing well with clean intermittent catheterization Remarked that he felt anxious prior to doing therapy and now he finds it 2nd nature Has been very helpful to let him sleep 6 month follow-up Expected to maintain clean intermittent catheterization for the foreseeable future Lower urinary tract symptoms Episode of retention seen through emergency room Cannon catheter placed with 1 L Happened in September 2022 Had been on terazosin for many years 5 mg Current therapy finasteride 11/24 cystoscopy with large bladder diver ticulum and cellules Started [facility] 05/24 [facility] Social History Alcohol intake: former Substance Use Type: Marijuana Review of Systems Const Denies chills and Denies fever(s) Card Reports no additional complaints and Denies syncope Resp Denies cough GI Denies abdominal pain and Denies heartburn Reports as per HPI and Denies change in libido Neuro Denies syncope Psych Denies change in libido Endo Denies change in libido Physical Exam Const General: cooperative, healthy appearing, comfortable and no acute distress Orientation/consciousness: patient oriented x3 HEENT Face and sinus: Yes normal facial exam Mouth: moist mucous membranes Neck Neck: Yes normal visual inspection, Yes full ROM and Yes trachea midline Chest Chest palpation & inspection: normal inspection of the chest Resp Effort & Inspection: normal respiratory effort, able to speak in complete sentences and no respiratory distress GI Inspection: Yes normal to inspection Back/Spine/Pelvis Cervical Spine: normal cervical lordosis Thoracic/Lumbar Spine: thoracic and lumbar spine normal to inspection Skin General skin exam: no rashes or lesions noted Neuro General: patient oriented x3, gait normal, tone normal and moves all extremities Extrem General: Yes normal to inspection and Yes capillary refill normal Assessment & Plan Assessment & Plan (1) BPH (benign prostatic hyperplasia): Code(s): N40.0 - Benign prostatic hyperplasia without lower urinary tract symptoms Qualifiers: Lower urinary tract symptom presence: symptoms present Lower urinary tract symptom detail: weak urinary stream Qualified Code(s): N40.1 - Benign prostatic hyperplasia with lower urinary tract symptoms; R39.12 - Poor urinary stream (2) Urinary retention: Code(s): R33.9 - Retention of urine, unspecified Plan six-month follow-up Patient Instructions: Imaging studies, laboratory and physical exam results were discussed and reviewed in detail. No major barriers to patient understanding were identified. An opportunity to ask questions regarding the treatment plan was provided. All questions were answered. The patient expressed understanding and agreement with the above treatment plan. The patient is aware they should contact our office by phone for worsening of their current condition or the appearance of new urologic symptoms. Compliance is encouraged with any medications and followup testing that is ordered. It is a privilege to participate in the urologic care of your patient. If you have any questions or concerns regarding treatment for the above conditions, or other urologic issues, please do not hesitate to contact me. The office telephone contact is [phone]. This note is constructed using voice recognition software. While every effort has been made to ensure accuracy private branch exchange service advisor errors may have been included. Yours sincerely, Dr Michael Lambert MD, JEAN CARLOS [facility] - Urology Providers of Expert, Compassionate Care for the Genitourinary System Coding Level of Care Code Est Pt Level 3 (89749) Diagnoses Benign prostatic hyperplasia with weak urinary stream N40.1; R39.12 Lower urinary tract symptom presence: symptoms present Lower urinary tract symptom detail: weak urinary stream Urinary retention R33.9
== END 2023-07-26 10:05 | disposition home or self-care (01) ==
PROVIDERS: Visit Provider Urology
DX: N40.1 Benign prostatic hyperplasia with lower urinary tract symptoms (principal); R39.12 Poor urinary stream; R33.9 Retention of urine, unspecified
CPT/HCPCS: 99213

== ENCOUNTER → 2023-07-26 09:00 | Outpatient (BNVA) | payer MEDICARE, SELFPAY | PROVIDERS: Visit Provider Urology | DX: N40.1 Benign prostatic hyperplasia with lower urinary tract symptoms (principal); R39.12 Poor urinary stream; R33.9 Retention of urine, unspecified | CPT/HCPCS: 99212 ==

== ENCOUNTER 2023-12-12 15:53 | Outpatient (REF) | payer MEDICARE, SELFPAY ==
[2023-12-12 17:25] LABS: Appearance Urine Turbid; Color Urine Dark Yellow; Glucose Urine UA Negative (Negative); Leukocyte Esterase Urine Moderate (2+) (Negative); Nitrite Urine Negative (Negative); Specific Gravity - Urine 1.025 (1.005-1.025); UMIC TRIGGER UA YES; Urine Blood Small (1+) (Negative); Urine Ketones Trace mg/dL (Negative); Urine Protein 100 (2+) mg/dL (Neg-Trace)
[2023-12-12 17:29] LABS: Bacteria Urine 4+ (None Seen); Hyaline Casts Urine 0-2 /LPF (0-2); RBC Urine >20 /HPF (0-2); Squamous Epithelial Cell Urine 0-2 /HPF (0-2); WBC Urine >50 /HPF (0-5)
== END 2023-12-12 15:54 | disposition home or self-care (01) ==
LOC: HO.LAB 15:53
PROVIDERS: Visit Provider Urology
DX: R33.9 Retention of urine, unspecified (principal)
CPT/HCPCS: 81001; 87086; 87088; 87186

== ENCOUNTER → 2023-12-13 11:29 | Outpatient (BNVA) | payer MEDICARE, SELFPAY | PROVIDERS: PCP Internal Medicine Endocrinology, Diabetes & Metabolism; Visit Provider Urology | DX: R33.9 Retention of urine, unspecified (principal) | CPT/HCPCS: 51798 ==

== ENCOUNTER 2024-01-25 08:16 | Outpatient (AMB) | payer MEDICARE, SELFPAY ==
--- NOTE | 2024-01-25 08:21 | A.OFFVIS_ITS ---
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 He is a patient of Dr. Galeano. Presents for the following urologic conditions - lower urinary tract symptoms with urinary retention - bladder diverticulum - neurogenic bladder Doing well with clean intermittent catheterization Six-month follow-up Expected to maintain clean intermittent catheterization for the foreseeable future Episode of infection December 2023. Treated with Macrobid. Placed on vitamin-C and methenamine which appears to be helpful Lower urinary tract symptoms Episode of retention seen through emergency room Cannon catheter placed with 1 L Happened in September 2022 Had been on terazosin for many years 5 mg Current therapy finasteride 11/24 cystoscopy with large bladder diverticulum and cellules Started [facility] 05/24 [facility] Social History Alcohol intake: former Substance Use Type: Marijuana Review of Systems Const Denies chills and Denies fever(s) Card Reports no additional complaints and Denies syncope Resp Denies cough GI Denies abdominal pain and Denies heartburn Reports as per HPI and Denies change in libido Neuro Denies syncope Psych Denies change in libido Endo Denies change in libido Physical Exam Const General: cooperative, healthy appearing, comfortable and no acute distress Orientation/consciousness: patient oriented x3 HEENT Face and sinus: Yes normal facial exam Mouth: moist mucous membranes Neck Neck: Yes normal visual inspection, Yes full ROM and Yes trachea midline Chest Chest palpation & inspection: normal inspection of the chest Resp Effort & Inspection: normal respiratory effort, able to speak in complete sentences and no respiratory distress GI Inspection: Yes normal to inspection Back/Spine/Pelvis Cervical Spine: normal cervical lordosis Thoracic/Lumbar Spine: thoracic and lumbar spine normal to inspection Skin General skin exam: no rashes or lesions noted Neuro General: patient oriented x3, gait normal, tone normal and moves all extremities Extrem General: Yes normal to inspection and Yes capillary refill normal Assessment & Plan Assessment & Plan (1) BPH (benign prostatic hyperplasia): Code(s): N40.0 - Benign prostatic hyperplasia without lower urinary tract symptoms Category: Medical Qualifiers: Lower urinary tract symptom presence: symptoms present Lower urinary tract symptom detail: weak urinary stream Qualified Code(s): N40.1 - Benign prostatic hyperplasia with lower urinary tract symptoms; R39.12 - Poor urinary stream (2) Urinary retention: Code(s): R33.9 - Retention of urine, unspecified Category: Medical (3) Chronic UTI (urinary tract infection): Code(s): N39.0 - Urinary tract infection, site not specified Category: Medical Plan Six-month follow-up Patient Instructions: Imaging studies, laboratory and physical exam results were discussed and reviewed in detail. No major barriers to patient understanding were identified. An opportunity to ask questions regarding the treatment plan was provided. All questions were answered. The patient expressed understanding and agreement with the above treatment plan. The patient is aware they should contact our office by phone for worsening of their current condition or the appearance of new urologic symptoms. Compliance is encouraged with any medications and followup testing that is ordered. It is a privilege to participate in the urologic care of your patient. If you have any questions or concerns regarding treatment for the above conditions, or other urologic issues, please do not hesitate to contact me. The office telephone contact is [phone]. This note is constructed using voice recognition software. While every effort has been made to ensure accuracy safety associate errors may have been included. Yours sincerely, Dr Michael Lambert MD, JEAN CARLOS [facility] - Urology Providers of Expert, Compassionate Care for the Genitourinary System Coding Level of Care Code Est Pt Level 3 (43126) Complex EM visit Add On G2211 Diagnoses Benign prostatic hyperplasia with weak urinary stream N40.1; R39.12 Lower urinary tract symptom presence: symptoms present Lower urinary tract symptom detail: weak urinary stream Urinary retention R33.9 Chronic UTI (urinary tract infection) N39.0
== END 2024-01-25 08:57 | disposition home or self-care (01) ==
PROVIDERS: PCP Internal Medicine Endocrinology, Diabetes & Metabolism; Visit Provider Urology
DX: N40.1 Benign prostatic hyperplasia with lower urinary tract symptoms (principal); R39.12 Poor urinary stream; R33.9 Retention of urine, unspecified; N39.0 Urinary tract infection, site not specified
CPT/HCPCS: 99213; G2211

== ENCOUNTER → 2024-01-25 08:16 | Outpatient (BNVA) | payer MEDICARE, SELFPAY | PROVIDERS: PCP Internal Medicine Endocrinology, Diabetes & Metabolism; Visit Provider Urology | DX: N40.1 Benign prostatic hyperplasia with lower urinary tract symptoms (principal); R39.12 Poor urinary stream; R33.8 Other retention of urine; N39.0 Urinary tract infection, site not specified | CPT/HCPCS: 99212 ==

== ENCOUNTER 2024-07-26 08:50 | Outpatient (AMB) | payer MEDICARE, SELFPAY ==
--- NOTE | 2024-07-26 08:50 | MHC.OFFVIS ---
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 He is a patient of Dr. Galeano. Presents for the following urologic conditions - lower urinary tract symptoms with urinary retention - bladder diverticulum - neurogenic bladder Telemedicine Evaluation 15 min Consultation [employer] Niels Video Doing well with clean intermittent catheterization Six-month follow-up - no infections Expected to maintain clean intermittent catheterization for the foreseeable future - 4-5 x a day Continue with six-month surveillance Lower urinary tract symptoms Episode of retention seen through emergency room Cannon catheter placed with 1 L Happened in September 2022 Had been on terazosin for many years 5 mg Current therapy finasteride 11/24 cystoscopy with large bladder diverticulum and cellules Started [facility] 05/24 [facility] Social History Alcohol intake: former Substance Use Type: Marijuana Review of Systems Const All systems reviewed & are unremarkable except as noted in HPI and below Reports no additional complaints Resp Reports no additional complaints GI Reports no additional complaints Reports as per HPI Musc Reports no additional complaints Physical Exam Telemedicine evaluation Appropriate responses Regular breathing rate and rhythm HEENT Head: Yes normal to inspection Ears: hearing grossly normal bilaterally Eyes General: appearance normal, both eyes and all related structures Neck Neck: Yes normal visual inspection Chest Chest palpation & inspection: normal inspection of the chest Resp Effort & Inspection: normal respiratory effort and able to speak in complete sentences Telehealth Telehealth Telehealth Platform: [employer] Location of provider rendering services: practice address Location of patient: address on file Patient Identification confirmed using: Name, : Yes Telehealth method: video Patient verbally consented to treatment: Yes Patient verbally consented to billing insurance company: Yes Patient informed of any privacy concerns related to visit: Yes Minutes spent on Phone/Video with Pt.: 15 Assessment & Plan Assessment & Plan (1) Urinary retention: Code(s): R33.9 - Retention of urine, unspecified Category: Medical (2) BPH (benign prostatic hyperplasia): Code(s): N40.0 - Benign prostatic hyperplasia without lower urinary tract symptoms Category: Medical Qualifiers: Lower urinary tract symptom presence: symptoms present Lower urinary tract symptom detail: weak urinary stream Qualified Code(s): N40.1 - Benign prostatic hyperplasia with lower urinary tract symptoms; R39.12 - Poor urinary stream Plan Continue finasteride Six-month follow-up office Medications: Refilled finasteride 5 mg PO DAILY 90 days 90 tabs 1RF N32.0 - Bladder-neck obstruction ascorbate calcium (vitamin C) 500 mg PO DAILY 90 days 90 tabs 1RF UTI suppression, daily catheterization Discontinued methenamine hippurate Discontinued Reason: Patient Completed Course 1 g PO DAILY 90 days 90 tabs 1RF UTI suppression, daily catheterization Patient Instructions: Imaging studies, laboratory and physical exam results were discussed and reviewed in detail. No major barriers to patient understanding were identified. An opportunity to ask questions regarding the treatment plan was provided. All questions were answered. The patient expressed understanding and agreement with the above treatment plan. The patient is aware they should contact our office by phone for worsening of their current condition or the appearance of new urologic symptoms. Compliance is encouraged with any medications and followup testing that is ordered. It is a privilege to participate in the urologic care of your patient. If you have any questions or concerns regarding treatment for the above conditions, or other urologic issues, please do not hesitate to contact me. The office telephone contact is [phone]. This note is constructed using voice recognition software. While every effort has been made to ensure accuracy mule spinner errors may have been included. Yours sincerely, Dr Michael Lambert MD, JE[facility] CAR[facility] - Urology Providers of Expert, Compassionate Care for the Genitourinary System Coding Level of Care Code Tele Est Pt Level 3 (20676) Diagnoses Urinary retention R33.9 Benign prostatic hyperplasia with weak urinary stream N40.1; R39.12 Lower urinary tract symptom presence: symptoms present Lower urinary tract symptom detail: weak urinary stream
== END 2024-07-26 09:38 | disposition home or self-care (01) ==
LOC: HO.HUSH 08:50
PROVIDERS: PCP Internal Medicine Endocrinology, Diabetes & Metabolism; Visit Provider Urology
DX: R33.9 Retention of urine, unspecified (principal); N40.1 Benign prostatic hyperplasia with lower urinary tract symptoms; R39.12 Poor urinary stream
CPT/HCPCS: 99213

== ENCOUNTER → 2024-07-26 08:50 | Outpatient (BNVA) | payer MEDICARE, SELFPAY | PROVIDERS: PCP Internal Medicine Endocrinology, Diabetes & Metabolism; Visit Provider Urology ==

== ENCOUNTER 2024-08-06 09:21 | Inpatient (IN) | payer MEDICARE, SELFPAY ==
[2024-08-06] VITALS (14 sets, daily range): BP systolic 91–120; BP diastolic 57–82; PULSE 76–123; RESP 16–20; TEMP 36.2–36.9; O2SAT 93–95; BMI 32.1
--- NOTE | 2024-08-06 | ECG_ITS ---
Test Reason : bradycardia Blood Pressure : / mmHG Vent. Rate : 059 BPM Atrial Rate : 000 BPM P-R Int : 000 ms QRS Dur : 120 ms QT Int : 416 ms P-R-T Axes : 000 -45 057 degrees QTc Int : 411 ms Atrial fibrillation with slow ventricular response Left anterior fascicular block Minimal voltage criteria for LVH, may be normal variant ( Gray product ) Abnormal ECG When compared with ECG of 06-AUG-2024 10:01, Vent. rate has decreased BY 91 BPM T wave amplitude has decreased in Anterior leads Nonspecific T wave abnormality has replaced inverted T waves in Lateral leads Referred By: Da Rivas Electronically Signed By:CASSIE BEGUM MD
--- NOTE | ~2024-08-06 | XR_ITS ---
EXAMINATION: XR CHEST CLINICAL INFORMATION: Shortness of breath COMPARISON: Chest radiograph from 03/28/2016 TECHNIQUE: 2 views of the chest were obtained. FINDINGS: Hyperinflation bilateral lung gregg. Flattening of the bilateral hemidiaphragms. Chronic appearing interstitial lung markings. No pneumothorax. Trachea is midline. Cardiomediastinal silhouette is not enlarged. No large pleural effusion. Osseous structures are intact. Soft tissues are unremarkable. XR/XR chest 2V IMPRESSION: 1. Hyperinflation bilateral lung gregg. 2. Flattening of the bilateral hemidiaphragms. 3. Chronic appearing interstitial lung markings. Electronically signed by: Masoud Eid MD 08/06/2024 10:11 AM [facility]
--- NOTE | 2024-08-06 09:41 | ECG_ITS ---
Test Reason : sob Blood Pressure : / mmHG Vent. Rate : 150 BPM Atrial Rate : 000 BPM P-R Int : 000 ms QRS Dur : 104 ms QT Int : 270 ms P-R-T Axes : 000 -51 094 degrees QTc Int : 426 ms Atrial fibrillation with rapid ventricular response Left anterior fascicular block Minimal voltage criteria for LVH, may be normal variant ( R in aVL ) Nonspecific ST and T wave abnormality Abnormal ECG No previous ECGs available Referred By: Generic ED Physician Electronically Signed By:CASSIE BEGUM MD
[2024-08-06 09:51] LABS: MANUAL DIFF FLAG NO
[2024-08-06 09:53] LABS: Basophils Percent Auto 0.4 % (0-2); Eosinophils Absolute Auto 0.1 X10*3/uL (0.0-0.4); Eosinophils Percent Auto 1.1 % (0-4); Hematocrit 38.9 % (42.0-52.0); Hemoglobin 13.2 g/dl (14.0-18.0); Imm Gran Abs Auto 0.02 X10*3/uL (0.00-0.03); Imm Gran Pct Auto 0.3 % (0.0-0.4); Lymphocytes Absolute Auto 1.9 X10*3/uL (1.2-4.9); Lymphocytes Percent Auto 25.5 % (20-40); Mean Corpuscular HGB Conc 33.9 g/dl (31.0-36.0); Mean Corpuscular Hemoglobin 30.7 pg (27.0-33.0); Mean Corpuscular Volume 90.5 fL (80.0-98.0); Mean Platelet Volume 10.6 fL (9.4-12.4); Monocytes Absolute Auto 0.5 X10*3/uL (0.1-1.2); Monocytes Percent Auto 6.4 % (2-11); Neutrophils Percent Auto 66.3 % (45-73); Platelet Count 150 X10*3/uL (160-400); Red Cell Distribution Width 13.2 % (11.0-16.0); White Blood Count 7.5 X10*3/uL (4.8-10.8)
--- NOTE | 2024-08-06 10:10 | ED_ITS ---
HPI - SOB/Dyspnea General Chief Complaint: Dyspnea Stated Complaint: SOB Time Seen by Provider: 08/06/24 10:08 Source: patient Mode of arrival: ambulatory Limitations: no limitations History of Present Illness HPI Narrative: This is 78 years old the patient presented to the emergency department with a chief complaint of shortness of breath for about 3 days. Denies any chest pain shortness of breath is worse on exertion MD elicited complaint: shortness of breath Onset (ago): day(s) (3) Timing: constant Severity: moderate Exacerbating factors: nothing Relieving factors: nothing and rest Associated symptoms: denies other symptoms Treatment prior to arrival: none Related Data Home Medications ?Medication ?Instructions ?Recorded ?Confirmed losartan 100 mg tablet 100 mg PO DAILY 10/10/22 08/06/24 pravastatin 40 mg tablet 40 mg PO DAILY 10/10/22 08/06/24 terazosin 5 mg capsule 5 mg PO BEDTIME 08/06/24 08/06/24 Previous Rx's ?Medication ?Instructions ?Recorded finasteride 5 mg tablet 5 mg PO DAILY 90 days #90 tabs 07/26/24 Allergies Allergy/AdvReac Type Severity Reaction Status Date / Time No Known Allergies Allergy Verified 08/06/24 09:36 Review of Systems 2 Constitutional: Constitutional: Reports no additional constitutional complaints Cardiovascular: Cardiovascular: Reports no additional cardiovascular complaints Respiratory: Respiratory: Reports no additional respiratory complaints [facility] Past Medical History Attestation statement: The following information was validated with the patient. Source: unable to obtain Medical History (Updated 08/06/24 @ 12:46 by Janel Fisher PA-C) HLD (hyperlipidemia) BPH loc w urin obs/LUTS CHF (congestive heart failure) HTN (hypertension) Social History Social History Alcohol intake: former Patient Tobacco Use Status: Never used Tobacco Smoked in Last 30 Days: No Use of substances other than those prescribed or required for medical reasons: No Substance Use Type: Marijuana Advance Directives: No Advance Directives Information Provided: Yes Nutrition Risks: No Nutritional Risk Physical Exam 2 Vital Signs: Vital Signs: Last Vital Signs Temp 97.9 F 08/06/24 11:39 Pulse 99 08/06/24 13:09 Resp 18 08/06/24 13:09 BP 120/82 08/06/24 13:22 Pulse Ox 95 08/06/24 13:09 O2 Del Method Room Air 08/06/24 13:09 BMI result Body Mass Index 32.1 Patient is no distress comfortable in the stretcher Const: General: cooperative Nutritional Appearance: well nourished O rientation/consciousness: patient oriented x3 HEENT: Head: Yes normal to inspection General nose exam: Normal external nose present Face and sinus: Yes normal facial exam Mouth: Normal oral and palatal mucosa present Throat: Yes posterior oropharynx normal Neck: Neck: Yes normal visual inspection Chest: Chest palpation & inspection: normal inspection of the chest Resp: Effort & Inspection: normal respiratory effort Cardio: Jugular venous distension: no JVD Rate: regular rate and tachycardic Rhythm: regular rhythm GI: Inspection: Yes normal to inspection Palpation (GI): Soft to palpation, not firm and nontender Auscultation: normal bowel sounds Skin: General skin exam: no rashes or lesions noted, elasticity normal and turgor normal Lesions: no lesions Rashes: no rashes Hair: normal N ails: normal Neuro: General: patient oriented x3 Extrem: General: Yes normal to inspection and Yes normal exam except as noted Left upper extremity: normal to inspection Right lower extremity: normal to inspection Course Reevaluation(s) Reevaluation #1: RATE DOWN TO 100'S bp DROPPED TO 91 /57 BACK UP NOW Time: 11:48 Reevaluation #2: doing better BP 120/82 Time: 13:41 Medications Administered Discontinued Medications Generic Name Dose Route Start Last Admin Trade Name Freq PRN Reason Stop Dose Admin Digoxin 0.25 mg 08/06/24 11:21 08/06/24 13:04 Digoxin 0.25 Mg Tablet PO 08/06/24 11:22 0.25 mg ONCE ONE Administration Protocol Diltiazem HCl 15 mg 08/06/24 10:10 08/06/24 10:20 Diltiazem Hcl 50 Mg/10 Ml Vial IVPUSH 08/06/24 10:11 15 mg STAT STA Administration Furosemide 20 mg 08/06/24 11:14 08/06/24 13:22 Furosemide 20 Mg/2 Ml Vial IVPUSH 08/06/24 11:15 20 mg ONCE ONE Administration Protocol Metoprolol Tartrate 50 mg 08/06/24 11:22 08/06/24 12:15 Metoprolol Tartrate 50 Mg Tablet PO 08/06/24 11:23 50 mg ONCE ONE Administration Protocol Medical Decision Making Medical Decision Making [facility] Narrative: Patient presented complaining of shortness of breath on exertion we will get EKG chest x-ray labs Differential Diagnosis Differential Diagnoses: The differential diagnosis associated with the presentation includes CHF/PE/ACS Admission/Observation Consideration of admission/observation: Escalation of care including admission/observation considered Consult Healthcare Provider Management of the patient was discussed with: Hospitalist and Medical Laboratory Technicians Lab Data [facility] Lab Attestation statement: I reviewed the patient's lab results. 08/06/24 09:47 08/06/24 09:47 Labs: Lab Results 08/06/24 Range/Units 09:47 WBC 7.5 (4.8-10.8) X10*3/uL RBC 4.30 L (4.60-5.80) X10*6/uL Hgb 13.2 L (14.0-18.0) g/dl Hct 38.9 L (42.0-52.0) % MCV 90.5 (80.0-98.0) fL MCH 30.7 (27.0-33.0) pg MCHC 33.9 (31.0-36.0) g/dl RDW 13.2 (11.0-16.0) % Plt Count 150 L (160-400) X10*3/uL MPV 10.6 (9.4-12.4) fL Immature Gran % (Auto) 0.3 (0.0-0.4) % Neut % (Auto) 66.3 (45-73) % Lymph % (Auto) 25.5 (20-40) % [place] % (Auto) 6.4 (2-11) % Eos % (Auto) 1.1 (0-4) % Baso % (Auto) 0.4 (0-2) % Lymph # (Auto) 1.9 (1.2-4.9) X10*3/uL [place] # (Auto) 0.5 (0.1-1.2) X10*3/uL Eos # (Auto) 0.1 (0.0-0.4) X10*3/uL Baso # (Auto) 0.0 (0.0-0.2) X10*3/uL Abs Immat Gran (auto) 0.02 (0.00-0.03) X10*3/uL Absolute Neuts (auto) 5.0 (2.0-8.3) x10*3/uL Absolute Nucleated RBC 0.000 (0.0-0.012) X10*3/uL Nucleated RBC % (auto) 0.0 (0.0-0.2) /100WBC Sodium 142 (135-145) mmol/L Potassium 4.1 (3.3-5.1) mmol/L Chloride 112 H (96-108) mmol/L Carbon Dioxide 24 (22-29) mmol/L Anion Gap 10 L (12-20) BUN 21 H (9-16) mg/dL Creatinine 1.42 H (0.5-1.4) mg/dL Estim Creat Clear Calc 60.6 Estimated GFR 48 Random Glucose 132 H (60-115) mg/dL Calcium 10.4 H (8.4-10.2) mg/dL Magnesium 2.0 (1.6-2.6) mg/dL Total Bilirubin 0.5 (0.0-1.0) mg/dL AST 25 (5-37) U/L ALT 11 (0-40) U/L Alkaline Phosphatase 65 (39-117) U/L B-Natriuretic Peptide 695 H (<100) pg/mL Total Protein 6.7 (6.5-8.0) g/dL Albumin 3.7 (3.5-5.0) g/dL Influenza Type A (PCR) NEGATIVE (Negative) Influenza Type B (PCR) NEGATIVE (Negative) RSV RNA Qual (PCR) NEGATIVE (Negative) SARS-CoV-2 RNA (RT-PCR) NEGATIVE (Negative) Independent Interpretation I performed an independent interpretation of an: EKG Interpretation: Electrocardiogram was reviewed interpreted by me as rapid atrial fibrillation rate 150 Radiology Impression Discussion of test interpretation with radiology: I have reviewed the radiologist's reading. Chronic Conditions Patient?s care impacted by: Hypertension Critical Care Time Critical Care Time Critical Care Time: Yes Total Critical Care Time: 60 Attestation: IV CARDIZEM AND TITRATION Discharge Plan Discharge Clinical Impression: Atrial fibrillation with RVR Patient Disposition: Admitted As Inpatient
[2024-08-06 10:14] LABS: Alanine Aminotransferase 11 U/L (0-40); Albumin Level 3.7 g/dL (3.5-5.0); Alkaline Phosphatase 65 U/L (39-117); Anion Gap 10 (12-20); Aspartate Amino Transferase 25 U/L (5-37); Bilirubin Total 0.5 mg/dL (0.0-1.0); Blood Urea Nitrogen 21 mg/dL (9-16); Calcium 10.4 mg/dL (8.4-10.2); Carbon Dioxide 24 mmol/L (22-29); Chloride 112 mmol/L (96-108); Creatinine Clr Calc Pharmacy 60.6; Estimated Glomerular Filt Rate 48; Glucose Random 132 mg/dL (60-115); Potassium 4.1 mmol/L (3.3-5.1); Sodium 142 mmol/L (135-145); Total Protein 6.7 g/dL (6.5-8.0)
[2024-08-06 10:18] LABS: B Type Natriuretic Peptide 695 pg/mL (<100)
[2024-08-06] MEDS: dilTIAZem HCL 50 MG/10 ML VIAL 15 MG IVPUSH (10:20)
--- NOTE | 2024-08-06 10:27 | PC.NURSE ---
patient a&ox3, iv inserted, labs and ekg previously drawn, pt states he has no chest pain, monitor tech afib without history, ivp cardizem given and pts hr decreased to 80s-90s, Dr munroe notified and IV drip is being held at this time, call callahan within reach, will continue to monitor
[2024-08-06 10:38] LABS: Influenza A PCR NEGATIVE (Negative); Influenza B PCR NEGATIVE (Negative); Resp Syncy Virus RNA Qual PCR NEGATIVE (Negative); SARS COV2 PCR INHOUSE NEGATIVE (Negative)
--- NOTE | 2024-08-06 11:41 | PC.NURSE ---
pharmacy called for missing med
[2024-08-06] MEDS: Metoprolol Tartrate 50 MG TABLET PO (12:15)
--- NOTE | 2024-08-06 12:24 | PM.IMHP ---
History of Present Illness Date of Service: 08/06/24 Attending physician on admission: Cas Herring Chief Complaint: SOB, HOLLOWAY Patient is a 78-year-old male with a past medical history significant for CHF, BPH, hypertension, hyperlipidemia, and likely undiagnosed COPD (based on CXR), who presented to the ED with shortness of breath and dyspnea x3 days. He denies any chest pain or upper respiratory symptoms including cough, fever, chills, runny nose, congestion or sore throat. 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 No increased lower extremity edema or palpitations. He does report a history of a DVT, about 5 years ago and was on Coumadin. Workup was inconclusive, therefore ruled as related to sedentary lifestyle as he drives for work. He lives alone but does have his daughter who lives close by for support. Review of Systems Constitutional: Constitutional: Denies body ache(s), Denies chills, Denies fatigue, Denies fever(s) and Denies headache(s) Eyes: Eyes: Denies blurry vision and Denies change in vision ENT: Denies headache(s), Denies nasal congestion, Denies nasal discharge, Denies post nasal drip and Denies sore throat Cardiovascular: Cardiovascular: Denies chest pain, Denies rapid heart rate, Denies pedal edema, Denies lightheadedness, Reports dyspnea on exertion and Denies orthopnea Respiratory: Respiratory: Denies chest congestion, Denies cough and Reports dyspnea on exertion Gastrointestinal: Gastrointestinal: Denies constipation, Denies diarrhea, Denies nausea and Denies vomiting Genitourinary: Genitourinary: Reports difficulty urinating (self catheterizes at home due to BPH) Musculoskeletal: Musculoskeletal: Denies myalgias Integumentary/Breasts: Skin/Breast: Denies rash Neurologic: Denies confusion, Denies headache(s) and Denies memory loss Psychiatric: Psychiatric: Denies confusion and Denies memory loss Endocrine: Endocrine: Denies fatigue [facility] Medical History (Updated 08/06/24 @ 12:46 by Janel Fisher PA-C) HLD (hyperlipidemia) BPH loc w urin obs/LUTS CHF (congestive heart failure) HTN (hypertension) Functional capacity: independent ambulation Social History Alcohol intake: former Patient Tobacco Use Status: Never used Tobacco Smoked in Last 30 Days: No Use of substances other than those prescribed or required for medical reasons: No Substance Use Type: Marijuana Advance Directives: No Advance Directives Information Provided: Yes Nutrition Risks: No Nutritional Risk Meds Allergies Allergy/AdvReac Type Severity Reaction Status Date / Time No Known Allergies Allergy Verified 08/06/24 09:36 Active Medications: Current Medications Acetaminophen (Acetaminophen 325 Mg Tablet) 650 mg PO Q6H PRN PRN Reason: Pain, Mild (Pain Scale 1-3), fever or headache Calcium Carbonate (Calcium Carbonate 750 Mg Tab.Chew) 750 mg PO Q4H PRN PRN Reason: Heartburn Diltiazem HCl 125 mg/ Sodium (Chloride) 125 mls @ 0 mls/hr IVCONT .[facility]; Protocol Magnesium Hydroxide (Milk Of Magnesia 30 Ml Oral.Susp) 30 ml PO DAILY PRN PRN Reason: Constipation Melatonin (Melatonin 3 Mg Tablet) 6 mg PO BEDTIME PRN PRN Reason: Insomnia Ondansetron HCl (Ondansetron Hcl 4 Mg/2 Ml Vial) 4 mg IVPUSH Q8H PRN PRN Reason: Nausea and Vomiting Sodium Chloride (0.9 % Sodium Chloride Flush 3 Ml Syringe) [facility] Medications ?Medication ?Instructions ?Recorded ?Confirmed ?Last Taken ?Type losartan 100 mg tablet 100 mg PO DAILY 10/10/22 08/06/24 Unknown History pravastatin 40 mg tablet 40 mg PO DAILY 10/10/22 08/06/24 Unknown History terazosin 5 mg capsule 5 mg PO BEDTIME 08/06/24 08/06/24 Unknown History Physical Exam Vital Signs and Narrative: Vital Signs: Last Vital Signs Temp 97.9 F 08/06/24 11:39 Pulse 95 08/06/24 12:15 Resp 16 08/06/24 11:39 BP 119/73 08/06/24 12:15 Pulse Ox 94 08/06/24 11:39 O2 Del Method Room Air 08/06/24 11:39 BMI result Body Mass Index 32.1 General: AOx3, no acute distress Resp: CTA bilaterally CVS: regular rate, irregularly irregular rhythm, no murmur GI: +BS, NT, no distention Skin: Warm, dry Extremities: No edema Psych: Appropriate affect Const: General: No confusion Orientation/consciousness: No confusion Neuro: General: No confusion Results Labs 08/06/24 09:47 08/06/24 09:47 Labs: Laboratory Results - last 24 hr 08/06/24 09:47 MCV 90.5 MCH 30.7 MCHC 33.9 RDW 13.2 Plt Count 150 L MPV 10.6 Immature Gran % (Auto) 0.3 Neut % (Auto) 66.3 Lymph % (Auto) 25.5 [place] % (Auto) 6.4 Eos % (Auto) 1.1 Baso % (Auto) 0.4 Lymph # (Auto) 1.9 [place] # (Auto) 0.5 Eos # (Auto) 0.1 Baso # (Auto) 0.0 Abs Immat Gran (auto) 0.02 Absolute Neuts (auto) 5.0 Absolute Nucleated RBC 0.000 Nucleated RBC % (auto) 0.0 Anion Gap 10 L Estim Creat Clear Calc 60.6 Estimated GFR 48 Random Glucose 132 H Calcium 10.4 H Total Bilirubin 0.5 AST 25 ALT 11 Alkaline Phosphatase 65 B-Natriuretic Peptide 695 H Total Protein 6.7 Albumin 3.7 Influenza Type A (PCR) NEGATIVE Influenza Type B (PCR) NEGATIVE RSV RNA Qual (PCR) NEGATIVE SARS-CoV-2 RNA (RT-PCR) NEGATIVE Imaging Radiologist's Impressions: Impressions Chest X-Ray 08/06/24 09:41 IMPRESSION: 1. Hyperinflation bilateral lung gregg. 2. Flattening of the bilateral hemidiaphragms. 3. Chronic appearing interstitial lung markings. Electronically signed by: Masoud Eid MD 08/06/2024 10:[address] [facility] Assessment and Plan (1) Atrial fibrillation with RVR: Status: Acute (2) MOKO (acute kidney injury): Status: Acute (3) Obesity (BMI 30.0-34.9): Status: Chronic Plan Patient is a 78-year-old male with a past medical history significant for CHF, BPH, hypertension, hyperlipidemia, and likely undiagnosed COPD (based on CXR), who presented to the ED with shortness of breath and dyspnea x3 days. EKG with new onset a fib with RVR, CXR negative, mild MOOK on labs. Ddx: new onset a fib with RVR, CHF exacerbation, COPD exacerbation new onset a fib with RVR - reviewed EKG - reviewed CXR - no interstitial edema or infiltrates - BNP elevated, no baseline to compare, no LE edema or evidence of exacerbation on CXR - started on diltiazem drip in ED, rate controlled - add on mag level - continue diltiazem drip transition to diltiazem 30mg QID - start eliquis 5mg BID - echo - CHADS-VASc score 6 - cardio constult MOOK- likely related to a fib - continue to monitor BMP CHF - no acute exacerbation - given furosemide in ED, no need to continue BPH - continue terazosin and finasteride - continue intermittent catheterizations HTN - BP controlled, hold losartan HLD - continue pravastatin Full code VTE prophy: eliquis 5mg BID Pt with new onset atrial fibrillation with high CHADS-VASc score complicated by an MOOK, requiring admission for rate control and further workup for at least 2 midnights stay. Quality Stroke Does the patient have a stroke diagnosis?: No VTE Prior VTE?: Yes VTE Risk Level:: Medical - moderate - high VTE Device Contraindication: Treatment Not Indicated VTE Drug Contraindication: N/A - Med Ordered
--- NOTE | 2024-08-06 13:00 | PHA.MEDREC ---
Addendum entered by Tressa Savage RPh 08/06/24 13:05: reviewed by [facility]. Original Note: Pharmacy Consult ? Medication Reconciliation Pharmacy has completed the medication reconciliation. Confirmed medications with patient. Patient compliant with his medications and states he took them yesterday.
[2024-08-06] MEDS: Digoxin 0.25 MG TABLET PO (13:04)
--- NOTE | 2024-08-06 13:05 | PC.NURSE ---
pt medicated per order
[2024-08-06] MEDS: Furosemide 20 MG/2 ML VIAL IVPUSH (13:22)
--- NOTE | 2024-08-06 13:27 | PC.NURSE ---
now that pts bp is high enough provider would like lasix given per order, pt medicated per order
--- NOTE | 2024-08-06 13:27 | PC.NURSE ---
self cath pt self caths, pt will notify us when he wishes to cath as he prefers to stand to do so and is connected to monitoring analyst and bp cuff.
[2024-08-06] MEDS: Finasteride 5 MG TABLET PO (14:44)
[2024-08-06] MEDS: 0.9 % Sodium Chloride Flush 3 ML SYRINGE IVFLUSH ×2 (17:25→20:16)
[2024-08-06] MEDS: dilTIAZem HCL 30 MG TABLET PO (17:31)
[2024-08-06] MEDS: Doxazosin Mesylate 2 MG TABLET 4 MG PO (20:14)
[2024-08-06] MEDS: Apixaban 5 MG TABLET PO (20:15)
[2024-08-07 01:00] VITALS: BP 131/81; PULSE 88; RESP 20; TEMP 36.2; O2SAT 95
[2024-08-07 04:48] VITALS: BP 123/90; PULSE 76; RESP 18; TEMP 37.1; O2SAT 95
[2024-08-07 06:51] LABS: MANUAL DIFF FLAG NO
--- NOTE | 2024-08-07 07:00 | CA_ITS ---
Transthoracic Echocardiogram Patient (Last, First, Middle): Artis Christianson A Gender: Male Date of : 1945 Age: 78 Procedure Date: 08/07/2024 Procedure Type: Transthoracic Echocardiogram Location: [facility] Height: 193.04 cm Weight: 119.3 kg BSA: 2.49 m2 Heart Rate: 94 bpm BP: 119 / 73 mmHg Photo Mask Inspector: JOURDAN Referring MD: Janel Fisher PA-C Nuclear Reactor Engineer: Bebeto Hatfield MD Symptoms: new onset a fib Study Quality: Adequate ECG Rhythm: Atrial Fibrillation Conclusions: - 1. Normal LV ejection fraction of 55-60% with mild LVH 2. Normal cardiac valvular Dopplers 3. Mildly dilated ascending aorta at 4 cm 4. Normal RV systolic pressure 5. No gross pericardial effusion Findings Left Ventricle Normal left ventricular size and systolic function. There is mildly increased left ventricular wall thickness. The visually estimated ejection fraction is between 55-60%. Diastolic function is indeterminate on the basis of available data. Right Ventricle Normal right ventricular cavity size and systolic function. Atria The left atrium is normal in size. There is no evidence of interatrial shunt. The right atrium is likely dilated. Aortic Valve Normal aortic valve structure and function. There is no aortic valve stenosis. There is no aortic valve regurgitation. Mitral Valve Normal mitral valve structure and function. There is trace mitral valve regurgitation. There is no mitral valve stenosis. Pulmonic Valve The pulmonic valve is likely normal. Tricuspid Valve Normal tricuspid valve structure. There is mild tricuspid valve regurgitation. The right ventricular systolic pressure is normal. The right ventricular systolic pressure is 28 mmHg. Normal right atrial pressure. There is no evidence of pulmonary hypertension. Great Vessels The pulmonary artery was not well visualized. There is mild dilatation of the ascending aorta measuring 4.00 cm. Venous The inferior vena cava is normal in size and collapses greater than 50% with inspiration. Pericardium/Pleural There is no evidence of pericardial effusion. Prior Study Comparison No prior study available for comparison. Measurements 2D Linear Measurements IVSd: 1.32 0.6-0.9/0.6-1.0 cm LVIDd: 4.17 3.9-5.3/4.2-5.9 cm LVIDd Index: 1.67 2.4-3.2/2.2-3.1 cm/m2 LVIDs: 2.82 2.0-3.6 cm LVPWd: 1.33 0.7-1.1 cm LA Diam: 3.40 2.7-3.8/3.0-4.0 cm LAIDs Index: 1.37 1.5-2.3 cm/m2 LV Mass: 254.49 67-162/88-224 g LV Mass Index: 102.21 43-95/49-115 g/m2 LVOT Diam: 2.40 3.0+(-)1.3 cm 2D Systolic Function EF 4C: 57.00 >55% EF 2C: 45.30 >55% EF BiP: 54.80 >55% Mitral Valve MV Pk E: 0.83 MV Decel Time: 205.00 E'Lateral: 13.60 E'Medial: 6.31 E/E' Med: 13.20 E/E' Lat: 6.10 PHT: 60.00 MVA PHT: 3.67 Decel [place]: 4.06 LVOT LVOT Diam: 2.40 LVOT Area: 4.52 Diastolic Function MV Pk E: 0.83 E'Medial: 6.31 E/E' Med: 13.20 E' Laterial: 13.60 E/E' Lat: 6.10 Right Ventricle TAPSE (mm): 21.90 Tricuspid Valve TR Pk Vijay: 2.24 TR Pk Grad: 20.00 RA Press: 8.00 RVSP: 28.00 Great Vessels Aorta Sinus of Valsalva: 4.00 2.0-3.5 cm Ao Asc: 4.00 2.1-3.4 cm Pulmonary Valve PV Pk Vijay: 0.86 Peak PV Grad: 3.00 Updated in Other Vendor System with Status of Final Bebeto Hatfield MD electronically signed on 08/07/2024 12:25:57 PM with status of Final
[2024-08-07 07:08] LABS: Basophils Percent Auto 0.5 % (0-2); Eosinophils Absolute Auto 0.1 X10*3/uL (0.0-0.4); Eosinophils Percent Auto 2.1 % (0-4); Hematocrit 35.9 % (42.0-52.0); Hemoglobin 12.2 g/dl (14.0-18.0); Imm Gran Abs Auto 0.01 X10*3/uL (0.00-0.03); Imm Gran Pct Auto 0.2 % (0.0-0.4); Lymphocytes Absolute Auto 2.3 X10*3/uL (1.2-4.9); Lymphocytes Percent Auto 37.4 % (20-40); Mean Corpuscular Hemoglobin 30.3 pg (27.0-33.0); Mean Corpuscular Volume 89.1 fL (80.0-98.0); Mean Platelet Volume 11.1 fL (9.4-12.4); Monocytes Absolute Auto 0.5 X10*3/uL (0.1-1.2); Monocytes Percent Auto 8.9 % (2-11); Neutrophils Absolute Auto 3.1 x10*3/uL (2.0-8.3); Neutrophils Percent Auto 50.9 % (45-73); Platelet Count 148 X10*3/uL (160-400); Red Blood Count 4.03 X10*6/uL (4.60-5.80); Red Cell Distribution Width 13.2 % (11.0-16.0); White Blood Count 6.1 X10*3/uL (4.8-10.8)
[2024-08-07 07:12] VITALS: BP 128/82; PULSE 75; RESP 20; TEMP 36.3; O2SAT 94
[2024-08-07 07:14] LABS: Anion Gap 12 (12-20); Blood Urea Nitrogen 21 mg/dL (9-16); Calcium 10.3 mg/dL (8.4-10.2); Carbon Dioxide 23 mmol/L (22-29); Chloride 111 mmol/L (96-108); Creatinine Clr Calc Pharmacy 79.7; Estimated Glomerular Filt Rate > 60; Glucose Random 100 mg/dL (60-115); Potassium 4.1 mmol/L (3.3-5.1); Sodium 142 mmol/L (135-145)
--- NOTE | 2024-08-07 08:38 | MHC.CM.PN ---
CM met with Patient at bedside and addressed IMM with him, providing Patient with the original and a copy has been placed on the chart. Patient lives alone in a condo, required no services nor DME CONDOMINIUM MANAGER, and will drive himself home at time of dc. CM has initiated and will follow for dc planning. PCP/PA is Jessica Carranza in [place].
[2024-08-07] MEDS: 0.9 % Sodium Chloride Flush 3 ML SYRINGE IVFLUSH (08:46)
[2024-08-07 08:47] VITALS: BP 128/82; PULSE 75
[2024-08-07] MEDS: dilTIAZem HCL 30 MG TABLET PO ×2 (08:47→12:28)
[2024-08-07] MEDS: Apixaban 5 MG TABLET PO (08:47)
[2024-08-07] MEDS: Finasteride 5 MG TABLET PO (08:47)
[2024-08-07] MEDS: Pravastatin Sodium 40 MG TABLET PO (08:47)
--- NOTE | 2024-08-07 10:22 | PM.CNCAR ---
History of Present Illness History of Present Illness Date of Service: 08/07/24 Requesting physician: Jarad Munoz Consult reason: atrial fibrillation and congestive heart failure Chief complaint: SOB Narrative: I was consulted to see Artis in cardiology consultation today for management of new onset atrial fibrillation congestive heart failure. 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 Pretty active he says. He said 4 years he has had exertional shortness of breath however over the last 3 days he got significantly short of breath doing minimal activity including just getting out of bed and would get short of breath. Then he would have to rest 5 minutes and regain his breath and continued to activity. 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 He denies any clear orthopnea, PND, leg edema. Denies any prolonged palpitation irregular heartbeat. He decided therefore come to the emergency room yesterday because of progressive shortness of breath and was noted to be in atrial fibrillation rapid ventricular response which was treated with rate control. Initially given Cardizem with blood pressure having little bottom out. Subsequently was given digoxin. Rate is overnight controlled much better. He also received some diuresis then has had good positive diuresis with much improved symptoms of shortness of breath. His admission BNP was 695. Troponin was negative. He said he has never had any episodes of atrial fibrillation in the past no arrhythmias. No other cardiovascular issues with no issues with vascular disease or stroke. He has no bleeding issues or neurologic events. Review of Systems Constitutional: Constitutional: Reports no additional constitutional complaints Eyes: Eyes: Reports no additional eye complaints Cardiovascular: Cardiovascular: Denies chest pain, Denies leg edema, Denies lightheadedness, Denies Loss of Consciousness, Denies palpitations, Reports dyspnea on exertion and Denies orthopnea Respiratory: Respiratory: Reports no additional respiratory complaints and Reports dyspnea on exertion Genitourinary: Genitourinary: Reports no additional male genitourinary complaints Integumentary/Breasts: Skin/Breast: Reports system reviewed and no additional complaints, except as docu Psychiatric: Psychiatric: Reports no additional psychiatric complaints Endocrine: Endocrine: Denies palpitations Hematologic/Lymphatic: Hematologic/Lymphatic: Reports no additional hematologic/lymphatic complaints [facility] Past Medical History Medical History HLD (hyperlipidemia) BPH loc w urin obs/LUTS CHF (congestive heart failure) HTN (hypertension) Social History Social History Household Members: None Housing: Apartment Do you presently have visiting nurse or other home services: No Alcohol intake: former Patient Tobacco Use Status: Never used Tobacco Smoked in Last 30 Days: No Patient Interested in Nicotine Replacement: No Patient Given Instructions on How to Stop Smoking: No Second Hand Smoke Exposure: No Use of substances other than those prescribed or required for medical reasons: Yes Substance Use Type: Marijuana Substance Use Type Other:: Chewable marijuana Substance Use Frequency: Occasionally Last Used Substance: Weeks (ago) Currently Displaying Signs/Symptoms of Drug Intoxication Withdrawal: No Any prior treatment program specific to substance use: No Have you been hit, kicked, punched, or otherwise hurt by someone within the past year? If so, by whom?: No Do you feel safe in your current relationship?: No Current Relationship Is there a partner from a previous relationship who is making you feel unsafe now?: No Are you made to feel afraid or neglected: No Baptism Healthcare Practices: Sabianist Advance Directives: No Advance Directives Information Provided: Yes Do you have a plan to hurt others: No Plan Recently lost weight without trying: Yes How much weight loss: 2-13 pounds Eating poorly because of decreased appetite: No Nutrition screen score: 3 Nutrition Risks: No Nutritional Risk Poor oral hygiene: No service: Yes Meds Allergies Allergy/AdvReac Type Severity Reaction Status Date / Time No Known Allergies Allergy Verified 08/06/24 09:36 Active Medications: Current Medications Acetaminophen (Acetaminophen 325 Mg Tablet) 650 mg PO Q6H PRN PRN Reason: Pain, Mild (Pain Scale 1-3), fever or headache Apixaban (Apixaban 5 Mg Tablet) 5 mg PO BID [facility] Last Admin: 08/07/24 08:47 Dose: 5 mg Calcium Carbonate (Calcium Carbonate 750 Mg Tab.Chew) 750 mg PO Q4H PRN PRN Reason: Heartburn Diltiazem HCl (Diltiazem Hcl 30 Mg Tablet) 30 mg PO QID [facility]; Protocol Last Admin: 08/07/24 08:47 Dose: 30 mg Doxazosin Mesylate (Doxazosin Mesylate 2 Mg Tablet) 4 mg PO BEDTIME [facility] Last Admin: 08/06/24 20:14 Dose: 4 mg Finasteride (Finasteride 5 Mg Tablet) 5 mg PO DAILY [facility] Last Admin: 08/07/24 08:47 Dose: 5 mg Magnesium Hydroxide (Milk Of Magnesia 30 Ml Oral.Susp) 30 ml PO DAILY PRN PRN Reason: Constipation Melatonin (Melatonin 3 Mg Tablet) 6 mg PO BEDTIME PRN PRN Reason: Insomnia Ondansetron HCl (Ondansetron Hcl 4 Mg/2 Ml Vial) 4 mg IVPUSH Q8H PRN PRN Reason: Nausea and Vomiting Pravastatin Sodium (Pravastatin Sodium 40 Mg Tablet) 40 mg PO DAILY [facility] Last Admin: 08/07/24 08:47 Dose: 40 mg Sodium Chloride (0.9 % Sodium Chloride Flush 3 Ml Syringe) 3 ml IVFLUSH QSHIFT [facility] Last Admin: 08/07/24 08:46 Dose: 3 ml Home Medications ?Medication ?Instructions ?Recorded ?Confirmed ?Last Taken ?Type losartan 100 mg tablet 100 mg PO DAILY 10/10/22 08/06/24 Unknown History pravastatin 40 mg tablet 40 mg PO DAILY 10/10/22 08/06/24 Unknown History terazosin 5 mg capsule 5 mg PO BEDTIME 08/06/24 08/06/24 Unknown History Physical Exam Vital Signs: Vital Signs: Last Vital Signs Temp 97.4 F 08/07/24 07:12 Pulse 75 08/07/24 08:47 Resp 20 08/07/24 07:12 BP 128/82 08/07/24 08:47 Pulse Ox 94 08/07/24 07:12 O2 Del Method Room Air 08/07/24 07:12 BMI result Body Mass Index 32.1 Const: General: cooperative, comfortable, no acute distress, well developed, alert and awake Nutritional Appearance: well nourished and obese Orientation/consciousness: patient oriented x3 Limitations: no limitations HEENT: Head: Yes normocephalic and Yes atraumatic Neck: Neck: Yes trachea midline, Yes supple and Yes no JVD Resp: Effort & Inspection: decreased respiratory effort Auscultation: clear to auscultation bilaterally and no rales Cardio: Jugular venous distension: no JVD Rhythm: abnormal rhythm irregularly irregular Heart sounds: S1 normal heart sound present, S2 normal heart sound present, no click, no gallops, no murmurs and no rubs GI: Auscultation: normal bowel sounds Skin: General skin exam: no rashes or lesions noted Neuro: General: patient oriented x3 and no focal motor deficits Extrem: General: Yes no clubbing, cyanosis or edema Psych: Appearance: grossly normal Objective Labs and Meds 08/07/24 06:39 08/07/24 06:39 Lab results: Laboratory Results - last 24 hr 08/06/24 08/07/24 09:47 06:39 WBC 6.1 RBC 4.03 L Hgb 12.2 L Hct 35.9 L MCV 89.1 MCH 30.3 MCHC 34.0 RDW 13.2 Plt Count 148 L MPV 11.1 Immature Gran % (Auto) 0.2 Neut % (Auto) 50.9 Lymph % (Auto) 37.4 [place] % (Auto) 8.9 Eos % (Auto) 2.1 Baso % (Auto) 0.5 Lymph # (Auto) 2.3 [place] # (Auto) 0.5 Eos # (Auto) 0.1 Baso # (Auto) 0.0 Abs Immat Gran (auto) 0.01 Absolute Neuts (auto) 3.1 Absolute Nucleated RBC 0.000 Nucleated RBC % (auto) 0.0 Sodium 142 Potassium 4.1 Chloride 111 H Carbon Dioxide 23 Anion Gap 12 BUN 21 H Creatinine 1.08 Estim Creat Clear Calc 79.7 Estimated GFR > 60 Random Glucose 100 Calcium 10.3 H Magnesium 2.0 Influenza Type A (PCR) NEGATIVE Influenza Type B (PCR) NEGATIVE RSV RNA Qual (PCR) NEGATIVE SARS-CoV-2 RNA (RT-PCR) NEGATIVE EKG number 2 shows atrial fibrillation with left anterior fascicular block with minimal voltage criteria for LVH with rate much better controlled Assessment and Plan (1) Persistent atrial fibrillation: Status: Acute Patient presents with new onset atrial fibrillation with heart failure, see below for management. Patient currently rate is much better control with current rate control medication. Blood pressure is optimized. He is not aware of classic symptoms of palpitation or rapid heart rate. However as aware of increasing shortness of breath and we discussed about management of atrial fibrillation the details. Given unknown duration of atrial fibrillation for now will continue oral anticoagulation therapy Eliquis. Discussed the benefits of Eliquis therapy. CHADSVASc score of at least 4. Continue rate control. Will switch him to long-acting Cardizem as his LV ejection fraction preliminary appears to be preserved. Patient can be discharged home. Will set up for outpatient follow-up with stress testing and Holter monitor. (2) Decompensated heart failure: Status: Acute Patient presents with symptoms suggestive of decompensated congestive heart failure with progressive shortness of breath improved with gentle diuresis with elevated BNP. Patient appears very well euvolemic at this point time with much improved symptoms. If he ambulates well without significant shortness of breath can be discharged home later today. Switch to p.o. Lasix 20 mg daily. Eventually will benefit from rhythm control approach will require further cardiac workup as outpatient. Will follow with him as outpatient. Thank you for allowing me to partake in his care Procedures Date of Service Date of Service: 08/07/24
[2024-08-07 11:22] VITALS: BP 121/78; PULSE 88; RESP 18; TEMP 36.5; O2SAT 96
--- NOTE | 2024-08-07 12:05 | PM.DS ---
DS: Providers Provider Date of Service: 08/07/24 Date of admission: 08/06/24 12:17 Date of discharge: 08/07/24 Primary care physician: Unknown Physician Consults: 08/06/24 12:20 Consult to Cardiology Routine Consulting Provider: [facility] Reason for consultation: new onset a fib Has provider been notified: No DS: Diagnosis Discharge Diagnosis (1) Persistent atrial fibrillation: Status: Acute (2) Decompensated heart failure: Status: Acute DS: Summary Hospital Course Hospital Course: from initial hpi: 78-year-old male with a past medical history significant for CHF, BPH, hypertension, hyperlipidemia, and likely undiagnosed COPD (based on CXR), who presented to the ED with shortness of breath and dyspnea x3 days. He denies any chest pain or upper respiratory symptoms including cough, fever, chills, runny nose, congestion or sore throat. 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 No increased lower extremity edema or palpitations. He does report a history of a DVT, about 5 years ago and was on Coumadin. Workup was inconclusive, therefore ruled as related to sedentary lifestyle as he drives for work. He lives alone but does have his daughter who lives close by for support. hospital course: Patient was admitted for new onset atrial fibrillation with rapid ventricular response complicated by acute diastolic CHF. Was treated with IV Lasix, diltiazem infusion, started on apixaban. Echo showed normal EF. Transitioned to diltiazem 120 mg daily, Lasix 20 mg daily, will continue follow up with Cardiology outpatient. For BPH continue terazosin and finasteride,. Patient had some acute kidney injury which resolved with diuresis. Patient is feeling much better and will be discharged home. Time Attestation Discharge Coordination Time (in mins): 37 Quality: Safe Use of Opioids Does Pt have an Active Cancer Diagnosis on the Problem List?: No Quality: Stroke Does the patient have a stroke diagnosis?: No Physical Exam Vital Signs: Vital Signs: Last Vital Signs Temp 97.7 F 08/07/24 11:22 Pulse 88 08/07/24 11:22 Resp 18 08/07/24 11:22 BP 121/78 08/07/24 11:22 Pulse Ox 96 08/07/24 11:22 O2 Del Method Room Air 08/07/24 11:22 BMI result Body Mass Index 32.1 General: AO X 3, no acute distress Resp: CTA bilateral, no accessory muscles used CVS: S1,S2, irregular GI: soft, non tender, non distended Neuro: motor grossly intact, alert Psych: appropriate affect, appropriate insight DS: Data Data Completed and Pending Labs on day of discharge: Laboratory Results - last 24 hr 08/06/24 08/07/24 09:47 06:39 WBC 6.1 RBC 4.03 L Hgb 12.2 L Hct 35.9 L MCV 89.1 MCH 30.3 MCHC 34.0 RDW 13.2 Plt Count 148 L MPV 11.1 Immature Gran % (Auto) 0.2 Neut % (Auto) 50.9 Lymph % (Auto) 37.4 Webster % (Auto) 8.9 Eos % (Auto) 2.1 Baso % (Auto) 0.5 Lymph # (Auto) 2.3 Webster # (Auto) 0.5 Eos # (Auto) 0.1 Baso # (Auto) 0.0 Abs Immat Gran (auto) 0.01 Absolute Neuts (auto) 3.1 Absolute Nucleated RBC 0.000 Nucleated RBC % (auto) 0.0 Sodium 142 Potassium 4.1 Chloride 111 H Carbon Dioxide 23 Anion Gap 12 BUN 21 H Creatinine 1.08 Estim Creat Clear Calc 79.7 Estimated GFR > 60 Random Glucose 100 Calcium 10.3 H Magnesium 2.0 Discharge Plan Discharge Anticipated Discharge Date/Time: 08/07/24 12:03 Patient Disposition: Home, Self-Care Discharge Diagnosis: afib, chf Referrals: Physician,Unknown J [Primary Care Provider] - 1 Week Discharge Medications: New Eliquis 5 mg Tablet 5 mg PO BID Qty: 180 0RF furosemide 20 mg tablet 20 mg PO DAILY Qty: 180 0RF diltiazem HCl 120 mg capsule,extended release 12 hr 120 mg PO DAILY Qty: 90 0RF Continued terazosin 5 mg capsule 5 mg PO BEDTIME losartan 100 mg tablet 100 mg PO DAILY pravastatin 40 mg tablet 40 mg PO DAILY finasteride 5 mg tablet 5 mg PO DAILY 90 Days Qty: 90 1RF Discharge Orders: Discharge Order (Routine); Ordered 08/07/24 Ordered By: Jarad Munoz Diet: Advance to usual diet Activity on Discharge: As tolerated Stand Alone Forms: Patient Portal Discharge page Print Language: Greek Care Plan Goals: Recovery Health Concerns: CHF and AFib Plan of Treatment: Started on Eliquis, diltiazem, furosemide Assessment: See above
[2024-08-07 12:28] VITALS: BP 121/78; PULSE 88
--- NOTE | 2024-08-07 12:29 | MHC.CM.PN ---
Patient has been medically cleared for dc to home today, self care.
== END 2024-08-07 13:03 | disposition home or self-care (01) | DRG 291 ==
LOC: HO.ED 11:46 → HO.EDOVER 12:33 → HO.IMC 14:27
PROVIDERS: Admitting Provider Physician Assistant; Emergency Provider Emergency Medicine; Visit Provider Internal Medicine
DX: I11.0 Hypertensive heart disease with heart failure (principal); I50.33 Acute on chronic diastolic (congestive) heart failure; I48.19 Other persistent atrial fibrillation; N17.9 Acute kidney failure, unspecified; J44.9 Chronic obstructive pulmonary disease, unspecified; E78.5 Hyperlipidemia, unspecified; N40.0 Benign prostatic hyperplasia without lower urinary tract symptoms; Z86.718 Personal history of other venous thrombosis and embolism; Z20.822 Contact with and (suspected) exposure to COVID-19; Z79.899 Other long term (current) drug therapy
CPT/HCPCS: 0241U; 36415; 71046; 80048; 80053; 83735; 83880; 85025; 93005; 93306; 99285; J1940; Q9957

== ENCOUNTER → 2024-08-06 09:41 | Outpatient (BNV) | payer MEDICARE, SELFPAY | PROVIDERS: Admitting Provider Physician Assistant; Emergency Provider Emergency Medicine; Visit Provider Internal Medicine Cardiovascular Disease | DX: R06.02 Shortness of breath (principal) | CPT/HCPCS: 93010 ==

== ENCOUNTER 2024-08-06 12:17 | Outpatient (BNV) | payer MEDICARE, SELFPAY | END 2024-08-07 07:00 | PROVIDERS: Admitting Provider Physician Assistant; Emergency Provider Emergency Medicine; Visit Provider Internal Medicine Cardiovascular Disease | DX: I48.91 Unspecified atrial fibrillation (principal); I36.1 Nonrheumatic tricuspid (valve) insufficiency | CPT/HCPCS: 93306 ==

== ENCOUNTER → 2024-08-06 12:17 | Outpatient (BNV) | payer MEDICARE, SELFPAY | PROVIDERS: Admitting Provider Physician Assistant; Emergency Provider Emergency Medicine; Visit Provider Internal Medicine Cardiovascular Disease | DX: I48.19 Other persistent atrial fibrillation (principal); I50.9 Heart failure, unspecified | CPT/HCPCS: 99222 ==

== ENCOUNTER → 2024-08-06 12:17 | Outpatient (BNV) | payer MEDICARE, SELFPAY | PROVIDERS: Admitting Provider Physician Assistant; Emergency Provider Emergency Medicine; Visit Provider Internal Medicine | DX: I48.19 Other persistent atrial fibrillation (principal); N17.9 Acute kidney failure, unspecified; E66.811 Obesity, class 1; I50.9 Heart failure, unspecified | CPT/HCPCS: 99223; 99239 ==

== ENCOUNTER 2024-08-08 10:10 | Inpatient (IN) | payer MEDICARE, SELFPAY ==
[2024-08-08] VITALS (10 sets, daily range): BP systolic 90–140; BP diastolic 63–80; PULSE 60–132; RESP 12–22; TEMP 35.9–36.4; O2SAT 94–97; BMI 31.6
--- NOTE | 2024-08-08 | ECG_ITS ---
Test Reason : ARRTHYMIA Blood Pressure : / mmHG Vent. Rate : 120 BPM Atrial Rate : 000 BPM P-R Int : 000 ms QRS Dur : 106 ms QT Int : 284 ms P-R-T Axes : 000 -45 088 degrees QTc Int : 401 ms Atrial fibrillation with rapid ventricular response Left anterior fascicular block Moderate voltage criteria for LVH, may be normal variant ( R in aVL , Jhonatan product ) Nonspecific ST abnormality Abnormal ECG When compared with ECG of 06-AUG-2024 21:13, Vent. rate has increased BY 61 BPM Referred By: Generic ED Physician Electronically Signed By:CASSIE BEGUM MD
--- NOTE | ~2024-08-08 | XR_ITS ---
EXAMINATION: XR CHEST CLINICAL INFORMATION: SOB, dizziness COMPARISON: cxr on 08/06/24 TECHNIQUE: Frontal view of the chest was obtained. FINDINGS: No significant abnormality is noted involving the heart, lungs, mediastinum, bony thorax or soft tissues. XR/XR chest 1V IMPRESSION: Unremarkable examination. Electronically signed by: Mariana Lopez MD 08/08/2024 01:59 PM [facility]
[2024-08-08 11:01] LABS: MANUAL DIFF FLAG NO
[2024-08-08 11:03] LABS: Basophils Percent Auto 0.4 % (0-2); Eosinophils Absolute Auto 0.1 X10*3/uL (0.0-0.4); Hematocrit 39.9 % (42.0-52.0); Hemoglobin 13.5 g/dl (14.0-18.0); Imm Gran Abs Auto 0.02 X10*3/uL (0.00-0.03); Imm Gran Pct Auto 0.3 % (0.0-0.4); Lymphocytes Percent Auto 27.6 % (20-40); Mean Corpuscular HGB Conc 33.8 g/dl (31.0-36.0); Mean Corpuscular Hemoglobin 30.3 pg (27.0-33.0); Mean Corpuscular Volume 89.5 fL (80.0-98.0); Mean Platelet Volume 10.9 fL (9.4-12.4); Monocytes Absolute Auto 0.6 X10*3/uL (0.1-1.2); Monocytes Percent Auto 7.7 % (2-11); Neutrophils Absolute Auto 4.5 x10*3/uL (2.0-8.3); Platelet Count 156 X10*3/uL (160-400); Red Blood Count 4.46 X10*6/uL (4.60-5.80); Red Cell Distribution Width 13.1 % (11.0-16.0); White Blood Count 7.1 X10*3/uL (4.8-10.8)
[2024-08-08 11:23] LABS: Anion Gap 13 (12-20); Blood Urea Nitrogen 25 mg/dL (9-16); Calcium 10.9 mg/dL (8.4-10.2); Carbon Dioxide 22 mmol/L (22-29); Chloride 111 mmol/L (96-108); Creatinine Clr Calc Pharmacy 69.4; Estimated Glomerular Filt Rate 57; Glucose Random 110 mg/dL (60-115); Potassium 4.1 mmol/L (3.3-5.1); Sodium 142 mmol/L (135-145)
--- NOTE | 2024-08-08 11:48 | ED_ITS ---
HPI - General Adult General Chief complaint: Dyspnea Stated complaint: AFIB? Time Seen by Provider: 08/08/24 11:47 Source: patient Mode of arrival: ambulatory Limitations: no limitations History of Present Illness ED Provider: Karey Cardona PA-C HPI narrative: Patient is a 78 year old assigned male at with a history of CHF, BPH, HTN, HLD, and new atrial fib presenting to the emergency department today with shortness of breath, dizziness, and inability to fill a medication. Patient states that he was discharged from the hospital yesterday after staying for a rapid heart rate and shortness of breath. Patient states that his pharmacy has not been able to fill his diltiazem prescription and he has continued to be dizzy and short of breath. Patient states he took his Eliquis and Lasix as prescribed. Patient denies any abdominal pain, nausea, vomiting, fever, chills, blurry vision, double vision, loss of vision, chest pain, difficulty breathing, back pain, night sweats, pain with urination, increased urinary frequency, increased urinary urgency, blood in his urine or stool, syncope or a near syncopal episode, recent trauma or falls, bowel incontinence, bladder incontinence, or any other complaints at this time. Relieving factors: none Exacerbating factors: none Associated symptoms: shortness of breath Treatments prior to arrival: none Related Data Home Medications ?Medication ?Instructions ?Recorded ?Confirmed losartan 100 mg tablet 100 mg PO DAILY 10/10/22 08/08/24 pravastatin 40 mg tablet 40 mg PO DAILY 10/10/22 08/08/24 terazosin 5 mg capsule 5 mg PO BEDTIME 08/06/24 08/08/24 Previous Rx's ?Medication ?Instructions ?Recorded finasteride 5 mg tablet 5 mg PO DAILY 90 days #90 tabs 07/26/24 apixaban 5 mg tablet (Eliquis) 5 mg PO BID #180 tabs 08/07/24 furosemide 20 mg tablet 20 mg PO DAILY #180 tabs 08/07/24 Allergies Allergy/AdvReac Type Severity Reaction Status Date / Time No Known Allergies Allergy Verified 08/08/24 10:18 Review of Systems 2 Constitutional: Constitutional: Reports no additional constitutional complaints, Denies chills, Denies fever(s) and Denies night sweats Eyes: Eyes: Reports no additional eye complaints, Denies blurry vision, Denies change in vision, Denies diplopia, Denies eye discharge, Denies loss of vision and Denies eye pain ENT: Reports dizziness Cardiovascular: Cardiovascular: Reports no additional cardiovascular complaints, Denies chest pain, Denies lightheadedness, Denies Loss of Consciousness and Reports dyspnea Respiratory: Respiratory: Reports no additional respiratory complaints and Reports dyspnea Gastrointestinal: Gastrointestinal: Reports no additional gastrointestinal complaints, Denies abdominal pain, Denies melena, Denies hematochezia, Denies change in bowel habits and Denies change in stool character Genitourinary: Genitourinary: Reports no additional male genitourinary complaints, Denies hematuria, Denies oliguria, Denies difficulty urinating, Denies dysuria, Denies urinary frequency, Denies urinary hesitancy, Denies urinary incontinence and Denies urinary urgency Musculoskeletal: Musculoskeletal: Reports no additional musculoskeletal complaints, Denies numbness and Denies tingling Neurologic: Reports dizziness, Denies loss of vision, Denies numbness and Denies tingling Psychiatric: Psychiatric: Reports no additional psychiatric complaints Endocrine: Endocrine: Reports no additional endocrine complaints Hematologic/Lymphatic: Hematologic/Lymphatic: Reports no additional hematologic/lymphatic complaints Allergic/Immunologic: Allergic/Immunologic: Reports no additional allergic/immunologic complaints [facility] Past Medical History Attestation statement: The following information was validated with the patient. Source: old records reviewed and nursing notes reviewed Medical History HLD (hyperlipidemia) BPH loc w urin obs/LUTS CHF (congestive heart failure) HTN (hypertension) Social History Social History Household Members: None Housing: Apartment Do you presently have visiting nurse or other home services: No Alcohol intake: former Patient Tobacco Use Status: Never used Tobacco Smoked in Last 30 Days: No Second Hand Smoke Exposure: No Use of substances other than those prescribed or required for medical reasons: No Substance Use Type: Marijuana Advance Directives: No Advance Directives Information Provided: Yes service: Yes Physical Exam ED Vital Signs: Vital Signs - 24 hr 08/08/24 10:16 08/08/24 12:00 08/08/24 12:02 Temperature 96.7 F L Pulse Rate 108 H 132 H 132 H Respiratory Rate 20 14 Blood Pressure 115/76 103/65 103/65 Pulse Oximetry 97 95 Oxygen Delivery Method Room Air Room Air 08/08/24 12:55 08/08/24 13:11 08/08/24 14:31 Temperature 97.6 F Pulse Rate 122 H 118 H 76 Respiratory Rate 20 20 17 Blood Pressure 90/64 99/63 117/68 Pulse Oximetry 96 95 96 Oxygen Delivery Method Room Air Room Air Room Air BMI result Body Mass Index 31.6 Const General: cooperative, no acute distress, alert and awake Nutritional Appearance: well nourished Orientation/consciousness: patient oriented x3 Limitations: no limitations HENMT Head: Yes normal to inspection and Yes atraumatic Ears: hearing grossly normal bilaterally and external ears normal General nose exam: Normal external nose present, no nasal discharge noted and no epistaxis Face and sinus: Yes normal facial exam, No abrasion and No laceration Mouth: Normal oral and palatal mucosa present, no drooling and no muffled voice Eyes General: appearance normal, both eyes and all related structures Periorbital: periorbital findings normal Eyelids: Yes eyelids normal Conjunctivae: conjunctivae normal Pupils: Equal, round and reactive pupils present EOM: EOMs intact bilaterally Neck Neck: Yes normal visual inspection, Yes full ROM and Yes no lymphadenopathy Chest Chest palpation & inspection: normal inspection of the chest Resp Effort & Inspection: normal respiratory effort and able to speak in complete sentences Cardio Rate: tachycardic Rhythm: abnormal rhythm irregularly irregular GI Inspection: Yes normal to inspection Neuro General: patient oriented x3 and moves all extremities Cranial nerves: Yes Equal, round and reactive pupils present Cognition (Neuro): normal cognition Extrem General: Yes normal to inspection, Yes full ROM and Yes capillary refill normal Psych Appearance: grossly normal Mental Status: mental status grossly normal Affect: normal affect Attitude: cooperative Thought process: Normal thought process present Thought content: Normal thought content present Insight: Good insight present (Psych) Medications Administered Discontinued Medications Generic Name Dose Route Start Last Admin Trade Name Freq PRN Reason Stop Dose Admin Digoxin 0.25 mg 08/08/24 13:06 08/08/24 13:16 Digoxin 0.5 Mg/2 Ml Ampul IVPUSH 08/08/24 13:07 0.25 mg ONCE ONE Administration Protocol Diltiazem HCl 120 mg 08/08/24 11:50 08/08/24 12:02 Diltiazem Hcl 60 Mg Tablet PO 08/08/24 11:51 120 mg ONCE ONE Administration Protocol Medical Decision Making Medical Decision Making [facility] Narrative: Patient is a 78 year old assigned male at with a history of CHF, BPH, HTN, HLD, and new atrial fib presenting to the emergency department today with shortness of breath, dizziness, and inability to fill a medication. Patient's physical exam was as noted in the physical exam portion of this note. Patient's rate was as high as the 170s. Patient's blood work was unremarkable. Patient's EKG showed atrial fibrillation with RVR. I explained my physical exam findings as well as all test results to the patient. I answered all questions asked by the patient. Patient was given his missed dose of Diltiazem which did decrease his heart rate to the 110s but also decreased his blood pressure. I consulted with Dr. Begum who recommended IV digoxin and admission as an NPO status for possible cardioversion. I spoke to the hospitalist team who agreed to admission. Patient verbalized agreement and understanding with this treatment plan and admission. Differential Diagnosis Differential Diagnoses: The differential diagnosis associated with the presentation includes Atrial fib with RVR CHF exacerbation SOB Admission/Observation Consideration of admission/observation: Escalation of care including admission/observation considered Patient would have been admitted to the hospital had his work up had any findings where hospital admission was appropriate and his clinical presentation warranted hospital admission. Consult Healthcare Provider Management of the patient was discussed with: Hospitalist (agreed to admission as noted in the MDM Rationale portion of this note.) and [employer]el P[employer] (spoke to the cardiology team as noted in the MDM Rationale portion of this note.) Lab Data [facility] Lab Attestation statement: I reviewed the patient's lab results. My interpretation of these results are in the MDM Rationale portion of this note. 08/08/24 10:54 08/08/24 10:54 Labs: Lab Results 08/08/24 08/08/24 Range/Units 10:54 15:06 WBC 7.1 (4.8-10.8) X10*3/uL RBC 4.46 L (4.60-5.80) X10*6/uL Hgb 13.5 L (14.0-18.0) g/dl Hct 39.9 L (42.0-52.0) % MCV 89.5 (80.0-98.0) fL MCH 30.3 (27.0-33.0) pg MCHC 33.8 (31.0-36.0) g/dl RDW 13.1 (11.0-16.0) % Plt Count 156 L (160-400) X10*3/uL MPV 10.9 (9.4-12.4) fL Immature Gran % (Auto) 0.3 (0.0-0.4) % Neut % (Auto) 63.0 (45-73) % Lymph % (Auto) 27.6 (20-40) % Dillon % (Auto) 7.7 (2-11) % Eos % (Auto) 1.0 (0-4) % Baso % (Auto) 0.4 (0-2) % Lymph # (Auto) 2.0 (1.2-4.9) X10*3/uL Dillon # (Auto) 0.6 (0.1-1.2) X10*3/uL Eos # (Auto) 0.1 (0.0-0.4) X10*3/uL Baso # (Auto) 0.0 (0.0-0.2) X10*3/uL Abs Immat Gran (auto) 0.02 (0.00-0.03) X10*3/uL Absolute Neuts (auto) 4.5 (2.0-8.3) x10*3/uL Absolute Nucleated RBC 0.000 (0.0-0.012) X10*3/uL Nucleated RBC % (auto) 0.0 (0.0-0.2) /100WBC Sodium 142 (135-145) mmol/L Potassium 4.1 (3.3-5.1) mmol/L Chloride 111 H (96-108) mmol/L Carbon Dioxide 22 (22-29) mmol/L Anion Gap 13 (12-20) BUN 25 H (9-16) mg/dL Creatinine 1.23 (0.5-1.4) mg/dL Estim Creat Clear Calc 69.4 Estimated GFR 57 Random Glucose 110 (60-115) mg/dL Calcium 10.9 H (8.4-10.2) mg/dL B-Natriuretic Peptide 348 H (<100) pg/mL Independent Interpretation I performed an independent interpretation of an: EKG and Plain X-Ray Interpretation: My interpretation is in agreement with the radiologist's impression of this imaging study. L EXAMINATION: XR CHEST CLINICAL INFORMATION: SOB, dizziness COMPARISON: cxr on 08/06/24 TECHNIQUE: Frontal view of the chest was obtained. FINDINGS: No significant abnormality is noted involving the heart, lungs, mediastinum, bony thorax or soft tissues. XR/XR chest 1V IMPRESSION: Unremarkable examination. Electronically signed by: Mariana Lopez MD 08/08/2024 01:59 PM EST Dictated By: Mariana Lopez MD Signed By: Electronically signed by Mariana Lopez MD 08/08/24 1359 Vent. Rate: 120 BPM Atrial Rate: 000 BPM P-R Int: 000 ms QRS Dur: 106 ms QT Int: 284 ms P-R-T Axes: 000 -45 088 degrees QTc Int: 401 ms Atrial fibrillation with rapid ventricular response Left anterior fascicular block Moderate voltage criteria for LVH, may be normal variant ( R in aVL , Ralston product ) Nonspecific ST abnormality Abnormal ECG When compared with ECG of 06-AUG-2024 21:13, Vent. rate has increased BY 61 BPM Referred By: Generic ED Physician Electronically Signed By:BEBETO BEGUM MD Dictated By: Bebeto Begum MD Signed By: Electronically signed by Bebeto Begum MD 08/08/24 1319 Radiology Impression Discussion of test interpretation with radiology: I have reviewed the radiologist's reading. Critical Care Time Critical Care Time Critical Care Time: Yes Total Critical Care Time: 44 Attestation: I spent 44 minutes of Critical Care Time with this patient. This does not include time spent on separately reported billable procedures. Discharge Plan Discharge Clinical Impression: Atrial fibrillation with RVR Patient Disposition: Admitted As Inpatient
--- NOTE | 2024-08-08 11:55 | PC.NURSE ---
DOSE OF DILT NOT STOCKED IN [facility], PHARMACY CALLED WILL DELIVER.
[2024-08-08] MEDS: dilTIAZem HCL 60 MG TABLET 120 MG PO (12:02)
[2024-08-08] MEDS: Digoxin 0.5 MG/2 ML AMPUL 0.25 MG IVPUSH (13:16)
--- NOTE | 2024-08-08 14:00 | PHA.MEDREC ---
Addendum entered by Rosa Kisre RPh 08/08/24 14:07: Reviewed by [facility] Original Note: Pharmacy Consult ? Medication Reconciliation Pharmacy has completed the medication reconciliation. Confirmed medications with patient. He confirmed he took his first dose of the Eliquis 5mg tab and Furosemide 20mg tab this morning. He states he was not able to take the Diltiazem 120mg tab due to his pharmacy not having that medication in stock and they were not able to find another store with it in stock.
--- NOTE | 2024-08-08 14:33 | P.HPHOSP_ITS ---
History of Present Illness Date of Service: 08/08/24 Attending physician on admission: Jarad Munoz Chief Complaint: SOB, Dizziness Pt is a 78-year-old male with a PMH significant for?paroxysmal AFib on Eliquis, HFpEF, HTN, HLD, and BPH who presents to the ED with?SOB, HOLLOWAY, and dizziness with position changes. Patient was recently discharged from the hospital yesterday after being admitted the day prior for new onset AFib with RVR complicated by acute diastolic CHF. Patient was treated with IV Lasix, diltiazem infusion, and started on apixaban. Patient was discharged on diltiazem 120 mg and Lasix 20 mg daily. Patient went to his pharmacy yesterday but was unable to get his diltiazem as he did not have that medication on hand and the computer ordering system was apparently down. Pt states felt well yesterday when he left the hospital and last night. Upon waking this morning pt reports felt tired and SOB with exertion. States it was so bad it took him over five minutes just to put on his socks. Denies cough. No lower leg edema. Denies chest pain/pressure, palpitations. No fever, chills, nausea, vomiting, abdominal pain. In the ED pt was Labs were significant for mild increase in creatinine of 1.23 from 1.08, otherwise grossly unremarkable. No leukocytosis. Stable H& H. No significant electrolyte abnormalities. CXR was unremarkable. EKG demonstrated AFib with RVR of 120 with anterior fascicular block and nonspecific ST abnormality. Pt was treated with diltiazem 120 mg p.o., digoxin 0.25 mg IV, and started on diltiazem drip. Pt will be admitted to the hospital for treatment and further evaluation of acute AFib with RVR secondary to medication noncompliance. [facility] Medical History HLD (hyperlipidemia) BPH loc w urin obs/LUTS CHF (congestive heart failure) HTN (hypertension) Social History Household Members: None Housing: Apartment Do you presently have visiting nurse or other home services: No Alcohol intake: former Patient Tobacco Use Status: Never used Tobacco Smoked in Last 30 Days: No Second Hand Smoke Exposure: No Use of substances other than those prescribed or required for medical reasons: No Substance Use Type: Marijuana Advance Directives: No Advance Directives Information Provided: Yes service: Yes Meds Allergies Allergy/AdvReac Type Severity Reaction Status Date / Time No Known Allergies Allergy Verified 08/08/24 10:18 Home Medications ?Medication ?Instructions ?Recorded ?Confirmed ?Last Taken ?Type losartan 100 mg tablet 100 mg PO DAILY 10/10/22 08/08/24 08/07/24 History pravastatin 40 mg tablet 40 mg PO DAILY 10/10/22 08/08/24 08/07/24 History terazosin 5 mg capsule 5 mg PO BEDTIME 08/06/24 08/08/24 08/07/24 History Physical Exam 2 Vital Signs and Narrative: Vital Signs: Last Vital Signs Temp 97.6 F 08/08/24 14:31 Pulse 76 08/08/24 14:31 Resp 17 08/08/24 14:31 BP 117/68 08/08/24 14:31 Pulse Ox 96 08/08/24 14:31 O2 Del Method Room Air 08/08/24 14:31 BMI result Body Mass Index 31.6 General: AOx3, no acute distress Resp: CTA bilaterally CVS: Irregularly irregular rhythm GI: +BS, NT, no distention Skin: Warm, dry Neuro: Cranial nerves II-XII grossly intact bilaterally. Motor grossly intact bilaterally Extremities: No edema Psych: Appropriate affect Results Labs 08/08/24 10:54 08/08/24 10:54 Labs: Laboratory Results - last 24 hr 08/08/24 10:54 MCV 89.5 MCH 30.3 MCHC 33.8 RDW 13.1 Plt Count 156 L MPV 10.9 Immature Gran % (Auto) 0.3 Neut % (Auto) 63.0 Lymph % (Auto) 27.6 Perkins % (Auto) 7.7 Eos % (Auto) 1.0 Baso % (Auto) 0.4 Lymph # (Auto) 2.0 Perkins # (Auto) 0.6 Eos # (Auto) 0.1 Baso # (Auto) 0.0 Abs Immat Gran (auto) 0.02 Absolute Neuts (auto) 4.5 Absolute Nucleated RBC 0.000 Nucleated RBC % (auto) 0.0 Anion Gap 13 Estim Creat Clear Calc 69.4 Estimated GFR 57 Random Glucose 110 Calcium 10.9 H Imaging Radiologist's Impressions: Impressions Chest X-Ray 08/08/24 13:02 IMPRESSION: Unremarkable examination. Electronically signed by: Mariana Lopez MD 08/08/2024 01:59 PM [facility] Assessment and Plan (1) Atrial fibrillation with RVR: Status: Acute Plan Pt is a 78-year-old male with a PMH significant for?paroxysmal AFib on Eliquis, HFpEF, HTN, HLD, and BPH who presents to the ED with?SOB, HOLLOWAY, and dizziness with position changes. Pt will be admitted to the hospital for treatment and further evaluation of acute AFib with RVR secondary to medication noncompliance. Symptomatic AFib with RVR New onset on 08/06, was discharged from here yesterday on 08/07 Unable to package pick up diltiazem from pharmacy [place] fine yesterday, this morning SOB and HOLLOWAY HR as high the 160s in the ED Given diltiazem 120 p.o. and digoxin 0.25 IV, HR currently in the 70s NPO after midnight for possible cardioversion in the morning Continue home diltiazem, Eliquis Cardiology consult Monitor on telemetry HFpEF Not in acute exacerbation Continue home Lasix HTN BP has been a little soft Hold losartan for now HLD Continue statin BPH Hold terazosin, finasteride due to soft BP Resume as warranted Full Code Attending:?Dr. Munoz DVT Prophylaxis: On Eliquis Pt will require a hospitalization of at least two nights for treatment of?symptomatic AFib with RVR due to medication noncompliance. Patient be admitted to the hospital for cardiac monitoring and likely cardioversion in the morning. Quality Stroke Does the patient have a stroke diagnosis?: No VTE Prior VTE?: No VTE Risk Level:: Medical - moderate - high VTE Device Contraindication: Treatment Not Indicated VTE Drug Contraindication: N/A - Med Ordered
[2024-08-08 15:33] LABS: B Type Natriuretic Peptide 348 pg/mL (<100)
[2024-08-08] MEDS: Apixaban 5 MG TABLET PO (19:38)
[2024-08-08] MEDS: 0.9 % Sodium Chloride Flush 3 ML SYRINGE IVFLUSH (19:39)
[2024-08-09 03:37] VITALS: BP 135/72; PULSE 75; RESP 19; TEMP 36.4; O2SAT 93
[2024-08-09 06:52] LABS: Anion Gap 10 (12-20); Blood Urea Nitrogen 25 mg/dL (9-16); Calcium 10.2 mg/dL (8.4-10.2); Carbon Dioxide 26 mmol/L (22-29); Chloride 111 mmol/L (96-108); Estimated Glomerular Filt Rate 57; Glucose Random 97 mg/dL (60-115); Potassium 4.1 mmol/L (3.3-5.1); Sodium 143 mmol/L (135-145)
[2024-08-09 08:00] VITALS: BP 150/91; PULSE 66; RESP 18; TEMP 37; O2SAT 94
[2024-08-09] MEDS: Pravastatin Sodium 40 MG TABLET PO (08:02)
[2024-08-09] MEDS: Apixaban 5 MG TABLET PO (08:02)
[2024-08-09] MEDS: Furosemide 20 MG TABLET PO (08:04)
[2024-08-09] MEDS: 0.9 % Sodium Chloride Flush 3 ML SYRINGE IVFLUSH (08:05)
--- NOTE | 2024-08-09 09:14 | MHC.CM.PN ---
IMM 08/09. Pt self-care, lives at home alone. Pts daughter will transport him home at discharge. Education provided on HCP, pt declined at this time stating I'm not ready for that. PCP: Jessica JOHNSON
--- NOTE | 2024-08-09 09:27 | P.PNCA_ITS ---
Subjective Subjective Date of Service: 08/09/24 Principal diagnosis: Atrial fibrillation Interval history: Artis was readmitted yesterday because he could not get Cardizem that was prescribed to him via the pharmacy as they had some computer issues. He then came with lightheadedness and rapid heart rate and was admitted again. However overnight after rate control he converted back to sinus rhythm. He is feeling well at this point time. He had no heart failure symptoms. Blood pressure is stable. Review of Systems Constitutional: Reports no additional constitutional complaints Eyes: Reports no additional eye complaints Cardiovascular: Denies chest pain, Reports rapid heart rate, Denies leg edema, Reports lightheadedness, Reports dyspnea on exertion and Denies orthopnea Respiratory: Reports dyspnea on exertion Gastrointestinal: Reports no additional gastrointestinal complaints Genitourinary: Reports no additional male genitourinary complaints Reports system reviewed and no additional complaints, except as documented Physical Exam Vital Signs: Last Vital Signs Temp 98.6 F 08/09/24 08:00 Pulse 66 08/09/24 08:00 Resp 18 08/09/24 08:00 BP 150/91 H 08/09/24 08:00 Pulse Ox 94 08/09/24 08:00 O2 Del Method Room Air 08/09/24 08:00 BMI result Body Mass Index 31.6 Const General: cooperative, comfortable, no acute distress, well developed, alert and awake Nutritional Appearance: well nourished and obese Orientation/consciousness: patient oriented x3 Limitations: no limitations HEENT Head: Yes normocephalic and Yes atraumatic Neck Neck: Yes trachea midline, Yes supple and Yes no JVD Resp Effort & Inspection: decreased respiratory effort Auscultation: clear to auscultation bilaterally and no rales Cardio Jugular venous distension: no JVD Rate: regular rate Rhythm: regular rhythm and abnormal rhythm irregularly irregular Heart sounds: S1 normal heart sound present, S2 normal heart sound present, no click, no gallops, no murmurs and no rubs GI Auscultation: normal bowel sounds Skin General skin exam: no rashes or lesions noted Neuro General: patient oriented x3 and no focal motor deficits Extrem General: Yes no clubbing, cyanosis or edema Psych Appearance: grossly normal Objective Labs and Meds 08/08/24 10:54 08/09/24 05:54 Lab results: Laboratory Results - last 24 hr 11/04/2408/08/24 08/09/24 10:54 15:06 05:54 WBC 7.1 RBC 4.46 L Hgb 13.5 L Hct 39.9 L MCV 89.5 MCH 30.3 MCHC 33.8 RDW 13.1 Plt Count 156 L MPV 10.9 Immature Gran % (Auto) 0.3 Neut % (Auto) 63.0 Lymph % (Auto) 27.6 [place] % (Auto) 7.7 Eos % (Auto) 1.0 Baso % (Auto) 0.4 Lymph # (Auto) 2.0 [place] # (Auto) 0.6 Eos # (Auto) 0.1 Baso # (Auto) 0.0 Abs Immat Gran (auto) 0.02 Absolute Neuts (auto) 4.5 Absolute Nucleated RBC 0.000 Nucleated RBC % (auto) 0.0 Sodium 142 143 Potassium 4.1 4.1 Chloride 111 H 111 H Carbon Dioxide 22 26 Anion Gap 13 10 L BUN 25 H 25 H Creatinine 1.23 1.22 Estim Creat Clear Calc 69.4 70.0 Estimated GFR 57 57 Random Glucose 110 97 Calcium 10.9 H 10.2 D B-Natriuretic Peptide 348 H Imaging Radiologist's impression: Impressions Chest X-Ray 08/08/24 13:02 IMPRESSION: Unremarkable examination. Electronically signed by: Mariana Lopez MD 08/08/2024 01:[address] [facility] Progress Note: A&P Assessment and plan (1) Paroxysmal atrial fibrillation: Status: Acute Assessment and Plan: Paroxysmal atrial fibrillation converted to sinus rhythm with rate control. This is great for him. This was discussed with him. Will pursue rhythm control approach as this has led to hospitalization x2. First time he had heart failure but this syndrome has resolved with controlling heart rate as well as not rhythm control. Hold Lasix can be used as a p.r.n. basis. Will discontinue Cardizem and switch him to Multaq 400 mg b.i.d. given his preserved LV ejection fraction no evidence of heart failure. Management of atrial fibrillation was discussed with him again. After he gets his 1st dose he can be discharged home. Continue full oral anticoagulation with Eliquis. Avoidance of stimulants was discussed. Will follow up in the clinic after workup. Thank you for allowing me to partake in his care Time Spent With Patient Time: Total time managing care of this patient today ____ minutes. Progress Note: Quality Stroke Does the patient have a stroke diagnosis?: No Procedures Date of Service Date of Service: 08/09/24
[2024-08-09] MEDS: Dronedarone HCl 400 MG TABLET PO (09:54)
--- NOTE | 2024-08-09 09:54 | HO.PM.IMPN ---
Subjective Subjective Date of Service: 08/09/24 Interval History: Feels back to normal Physical Exam Vital Signs: Vital Signs: Last Vital Signs Temp 98.6 F 08/09/24 08:00 Pulse 66 08/09/24 08:00 Resp 18 08/09/24 08:00 BP 150/91 H 08/09/24 08:00 Pulse Ox 94 08/09/24 08:00 O2 Del Method Room Air 08/09/24 08:00 BMI result Body Mass Index 31.6 General: AO X 3, no acute distress Resp: CTA bilateral, no accessory muscles used CVS: S1,S2,RRR GI: soft, non tender, non distended Neuro: motor grossly intact, alert Psych: appropriate affect, appropriate insight Objective Data Active Medications Acetaminophen (Acetaminophen 325 Mg Tablet) 650 mg PO Q6H PRN PRN Reason: Pain, Mild (Pain Scale 1-3), fever or headache Apixaban (Apixaban 5 Mg Tablet) 5 mg PO BID [facility] Last Admin: 08/09/24 08:02 Dose: 5 mg Documented By: HAMIDA Benzonatate (Benzonatate 100 Mg Capsule) 100 mg PO TID PRN PRN Reason: Cough Calcium Carbonate (Calcium Carbonate 750 Mg Tab.Chew) 750 mg PO Q4H PRN PRN Reason: Heartburn Dronedarone (Dronedarone Hcl 400 Mg Tablet) 400 mg PO BID [facility] Magnesium Hydroxide (Milk Of Magnesia 30 Ml Oral.Susp) 30 ml PO DAILY PRN PRN Reason: Constipation Melatonin (Melatonin 3 Mg Tablet) 6 mg PO BEDTIME PRN PRN Reason: Insomnia Ondansetron HCl (Ondansetron Hcl 4 Mg/2 Ml Vial) 4 mg IVPUSH Q8H PRN PRN Reason: Nausea and Vomiting Pravastatin Sodium (Pravastatin Sodium 40 Mg Tablet) 40 mg PO DAILY [facility] Last Admin: 08/09/24 08:02 Dose: 40 mg Documented By: HAMIDA Sodium Chloride (0.9 % Sodium Chloride Flush 3 Ml Syringe) 3 ml IVFLUSH QSHIFT [facility] Last Admin: 08/09/24 08:05 Dose: 3 ml Documented By: HAMIDA Labs 08/08/24 10:54 08/09/24 05:54 Labs: Laboratory Results - last 24 hr 11/07/24 11/07/24 11/08/24 10:54 15:06 05:54 MCV 89.5 MCH 30.3 MCHC 33.8 RDW 13.1 Plt Count 156 L MPV 10.9 Immature Gran % (Auto) 0.3 Neut % (Auto) 63.0 Lymph % (Auto) 27.6 [place] % (Auto) 7.7 Eos % (Auto) 1.0 Baso % (Auto) 0.4 Lymph # (Auto) 2.0 [place] # (Auto) 0.6 Eos # (Auto) 0.1 Baso # (Auto) 0.0 Abs Immat Gran (auto) 0.02 Absolute Neuts (auto) 4.5 Absolute Nucleated RBC 0.000 Nucleated RBC % (auto) 0.0 Anion Gap 13 10 L Estim Creat Clear Calc 69.4 70.0 Estimated GFR 57 57 Random Glucose 110 97 Calcium 10.9 H 10.2 D B-Natriuretic Peptide 348 H Assessment and Plan (1) Atrial fibrillation with RVR: Status: Acute Plan 78M PMH paroxysmal atrial fibrillation newly diagnosed on Eliquis, chronic diastolic CHF, hypertension, hyperlipidemia, BPH presented with palpitations and shortness of breath found to be in rapid AFib Paroxysmal atrial fibrillation with rapid ventricular response Now converted to normal sinus rhythm Continue Eliquis, started on Multaq, discontinue diltiazem Chronic diastolic CHF Lasix on hold as euvolemic Hypertension Losartan and hold for low normal BP Hyperlipidemia Continue statin DVT prophylaxis on Eliquis Full Code reason for continued hospitalization: Monitoring AFib Quality Stroke Does the patient have a stroke diagnosis?: No VTE Prior VTE?: No VTE Risk Level:: Medical - moderate - high VTE Device Contraindication: Treatment Not Indicated VTE Drug Contraindication: N/A - Med Ordered
--- NOTE | 2024-08-09 10:25 | PM.DS ---
DS: Providers Provider Date of Service: 08/09/24 Date of admission: 08/08/24 15:07 Date of discharge: 08/09/24 Primary care physician: ALEX Ayon Consults: 08/08/24 15:07 Consult to Cardiology Routine Consulting Provider: [facility] Reason for consultation: Afib w/RVR just d/c yesterday, ?cardioversion in morning DS: Diagnosis Discharge Diagnosis (1) Atrial fibrillation with RVR: Status: Acute DS: Summary Hospital Course Hospital Course: from initial hpi: 78-year-old male with a PMH significant for?paroxysmal AFib on Eliquis, HFpEF, HTN, HLD, and BPH who presents to the ED with?SOB, [place], and dizziness with position changes. Patient was recently discharged from the hospital yesterday after being admitted the day prior for new onset AFib with RVR complicated by acute diastolic CHF. Patient was treated with IV Lasix, diltiazem infusion, and started on apixaban. Patient was discharged on diltiazem 120 mg and Lasix 20 mg daily. Patient went to his pharmacy yesterday but was unable to get his diltiazem as he did not have that medication on hand and the computer ordering system was apparently down. Pt states felt well yesterday when he left the hospital and last night. Upon waking this morning pt reports felt tired and SOB with exertion. States it was so bad it took him over five minutes just to put on his socks. Denies cough. No lower leg edema. Denies chest pain/pressure, palpitations. No fever, chills, nausea, vomiting, abdominal pain. In the ED pt was Labs were significant for mild increase in creatinine of 1.23 from 1.08, otherwise grossly unremarkable. No leukocytosis. Stable H& H. No significant electrolyte abnormalities. CXR was unremarkable. EKG demonstrated AFib with RVR of 120 with anterior fascicular block and nonspecific ST abnormality. Pt was treated with diltiazem 120 mg p.o., digoxin 0.25 mg IV, and started on diltiazem drip. Pt will be admitted to the hospital for treatment and further evaluation of acute AFib with RVR secondary to medication noncompliance. hospital course: Patient was admitted for paroxysmal atrial fibrillation with rapid ventricular response. He converted spontaneously to normal sinus rhythm. He was continued on Eliquis and diltiazem was discontinued will be started on Multaq. For chronic diastolic CHF he remained euvolemic, Lasix was changed to as needed only. For hypertension losartan initially held for low normal blood pressures, now hypertensive and will be restarted on discharge. For hyperlipidemia continued on statin. Time Attestation Discharge Coordination Time (in mins): 37 Quality: Safe Use of Opioids Does Pt have an Active Cancer Diagnosis on the Problem List?: No Quality: Stroke Does the patient have a stroke diagnosis?: No Physical Exam Vital Signs: Vital Signs: Last Vital Signs Temp 98.6 F 08/09/24 08:00 Pulse 66 08/09/24 08:00 Resp 18 08/09/24 08:00 BP 150/91 H 08/09/24 08:00 Pulse Ox 94 08/09/24 08:00 O2 Del Method Room Air 08/09/24 08:00 BMI result Body Mass Index 31.6 General: AO X 3, no acute distress Resp: CTA bilateral, no accessory muscles used CVS: S1,S2,RRR GI: soft, non tender, non distended Neuro: motor grossly intact, alert Psych: appropriate affect, appropriate insight DS: Data Data Completed and Pending Labs on day of discharge: Laboratory Results - last 24 hr 08/08/24 08/08/24 08/09/24 10:54 15:06 05:54 WBC 7.1 RBC 4.46 L Hgb 13.5 L Hct 39.9 L MCV 89.5 MCH 30.3 MCHC 33.8 RDW 13.1 Plt Count 156 L MPV 10.9 Immature Gran % (Auto) 0.3 Neut % (Auto) 63.0 Lymph % (Auto) 27.6 [place] % (Auto) 7.7 Eos % (Auto) 1.0 Baso % (Auto) 0.4 Lymph # (Auto) 2.0 [place] # (Auto) 0.6 Eos # (Auto) 0.1 Baso # (Auto) 0.0 Abs Immat Gran (auto) 0.02 Absolute Neuts (auto) 4.5 Absolute Nucleated RBC 0.000 Nucleated RBC % (auto) 0.0 Sodium 142 143 Potassium 4.1 4.1 Chloride 111 H 111 H Carbon Dioxide 22 26 Anion Gap 13 10 L BUN 25 H 25 H Creatinine 1.23 1.22 Estim Creat Clear Calc 69.4 70.0 Estimated GFR 57 57 Random Glucose 110 97 Calcium 10.9 H 10.2 D B-Natriuretic Peptide 348 H Discharge Plan Discharge Anticipated Discharge Date/Time: 08/09/24 10:16 Patient Disposition: Home, Self-Care Discharge Diagnosis: afib Referrals: Jessica Carranza PA [Primary Care Provider] - 1 Week Discharge Medications: New Multaq 400 mg Tablet 400 mg PO BID Qty: 180 0RF Continued terazosin 5 mg capsule 5 mg PO BEDTIME Eliquis 5 mg Tablet 5 mg PO BID Qty: 180 0RF losartan 100 mg tablet 100 mg PO DAILY pravastatin 40 mg tablet 40 mg PO DAILY finasteride 5 mg tablet 5 mg PO DAILY 90 Days Qty: 90 1RF Changed furosemide 20 mg tablet 20 mg PO DAILY PRN (Reason: edema) Qty: 180 0RF Discharge Orders: Discharge Order (Routine); Ordered 08/09/24 Ordered By: Jarad Munoz Diet: Advance to usual diet Activity on Discharge: As tolerated Stand Alone Forms: Patient Portal Discharge page Print Language: [place] Care Plan Goals: recovery Health Concerns: afib Plan of Treatment: stop diltiazem, change lasix to as needed only, start multaq, avoid stimulants such as caffeine Assessment: see above
--- NOTE | 2024-08-09 10:59 | MHC.CM.PN ---
Pt is medically cleared for discharge home self-care, pts daughter to transport him home.
== END 2024-08-09 11:20 | disposition home or self-care (01) | DRG 309 ==
LOC: HO.ED 13:11 → HO.EDOVER 15:22 → HO.IMC 16:05
PROVIDERS: Admitting Provider Student in an Organized Health Care Education/Training Program; Emergency Provider Emergency Medicine; PCP Physician Assistant; Visit Provider Internal Medicine
DX: I48.0 Paroxysmal atrial fibrillation (principal); I50.32 Chronic diastolic (congestive) heart failure; I11.0 Hypertensive heart disease with heart failure; E78.5 Hyperlipidemia, unspecified; N40.0 Benign prostatic hyperplasia without lower urinary tract symptoms; Z79.01 Long term (current) use of anticoagulants; Z79.899 Other long term (current) drug therapy
CPT/HCPCS: 36415; 71045; 80048; 83880; 85025; 93005; 99285; J1160

== ENCOUNTER → 2024-08-08 10:49 | Outpatient (BNV) | payer MEDICARE, SELFPAY | PROVIDERS: Emergency Provider Emergency Medicine; PCP Physician Assistant; Visit Provider Internal Medicine Cardiovascular Disease | DX: R06.02 Shortness of breath (principal) | CPT/HCPCS: 93010 ==

== ENCOUNTER → 2024-08-08 15:07 | Outpatient (BNV) | payer MEDICARE, SELFPAY | PROVIDERS: Admitting Provider Student in an Organized Health Care Education/Training Program; Emergency Provider Emergency Medicine; PCP Physician Assistant; Visit Provider Internal Medicine Cardiovascular Disease | DX: I48.0 Paroxysmal atrial fibrillation (principal) | CPT/HCPCS: 99233 ==

== ENCOUNTER → 2024-08-08 15:07 | Outpatient (BNV) | payer MEDICARE, SELFPAY | PROVIDERS: Admitting Provider Student in an Organized Health Care Education/Training Program; Emergency Provider Emergency Medicine; PCP Physician Assistant; Visit Provider Student in an Organized Health Care Education/Training Program | DX: I48.91 Unspecified atrial fibrillation (principal); I50.9 Heart failure, unspecified; Z79.01 Long term (current) use of anticoagulants | CPT/HCPCS: 99222; 99239; 99499 ==

== ENCOUNTER → 2024-08-19 08:13 | Outpatient (REF) | payer MEDICARE, SELFPAY ==
--- NOTE | 2024-08-19 08:19 | HM_ITS ---
* Total monitoring time 3 days. * Underlying rhythm is sinus with an average rate of 64/Min. * Rare supraventricular ectopy. * Rare ventricular ectopy. * No significant pauses or high-grade AV blocks. * No patient markers or symptoms in diary. MTDD
== END ==
LOC: HO.CARD 08:13
PROVIDERS: PCP Physician Assistant; Visit Provider Internal Medicine Cardiovascular Disease
DX: I48.19 Other persistent atrial fibrillation (principal); I50.9 Heart failure, unspecified; E66.811 Obesity, class 1
CPT/HCPCS: 93242

== ENCOUNTER → 2024-08-19 08:19 | Outpatient (BNV) | payer MEDICARE, SELFPAY | PROVIDERS: PCP Physician Assistant; Visit Provider Internal Medicine | DX: I47.10 Supraventricular tachycardia, unspecified (principal) | CPT/HCPCS: 93244 ==

== ENCOUNTER 2024-09-03 08:54 | Outpatient (AMB) | payer MEDICARE, SELFPAY ==
--- NOTE | 2024-09-03 09:11 | AM.OFFVISNUR ---
Intake Visit Reasons: ekg ? afib if NS cancel Wed cardioversion Allergies No Known Allergies Allergy (Verified 08/08/24 10:18) Nursing Note pt is here for nurse visit with ekg pt is on dronedarone 400 PO BID pt is doing great , no symptoms Office Procedures EKG [id number], Complete
== END 2024-09-03 09:25 | disposition home or self-care (01) ==
PROVIDERS: PCP Physician Assistant; Visit Provider Internal Medicine Cardiovascular Disease
DX: I48.91 Unspecified atrial fibrillation (principal)
CPT/HCPCS: 93010

== ENCOUNTER → 2024-09-03 08:54 | Outpatient (BNVA) | payer MEDICARE, SELFPAY | PROVIDERS: PCP Physician Assistant; Visit Provider Internal Medicine Cardiovascular Disease | DX: Z13.6 Encounter for screening for cardiovascular disorders (principal) | CPT/HCPCS: 93005 ==

== ENCOUNTER → 2024-11-12 07:54 | Outpatient (REF) | payer MEDICARE, SELFPAY | LOC: HO.CARD 07:54 | PROVIDERS: PCP Physician Assistant; Visit Provider Internal Medicine Cardiovascular Disease | DX: I48.19 Other persistent atrial fibrillation (principal); I50.9 Heart failure, unspecified; E66.811 Obesity, class 1 | CPT/HCPCS: 78452; 93017; A9500; J0280; J2785 ==

== ENCOUNTER → 2024-11-12 07:56 | Outpatient (BNV) | payer MEDICARE, SELFPAY | PROVIDERS: PCP Physician Assistant | DX: R06.02 Shortness of breath (principal); I49.3 Ventricular premature depolarization | CPT/HCPCS: 78452; 93016; 93018 ==

== ENCOUNTER 2024-11-20 08:18 | Outpatient (AMB) | payer MEDICARE, SELFPAY ==
--- OUTSIDE RECORDS SUMMARY | 2024-11-20 08:23 | XMS_ITS | Continuity of Care Document ---
Author Organization [facility] [address] [facility] [address] [place] [address] Phone [phone] Care Team Providers Care Animal Cruelty Investigation Supervisor Name Role Phone Jessica Carranza Care Team Information Receive r [phone] Problems Active Problems Provider Date Essential hypertension Ernie Galeano M.D. Ons et: 08/01/2022 Pure hypercholesterolemia Ernie Galeano M.D. Onset: 08/01/2022 Heart disease Ernie Galeano M.D. Onset: Hyperlipidemia Ernie Galeano M.D. Onset: Diastolic dysfunction Ernie Galeano M.D. Onse t: 08/01/2022 Benign prostatic hyperplasia Heather Farley Onset: 08/01/2022 Dyspnea on exertion Ernie Galeano M.D. Onset: 08/01/2022 Hypercalcemia Ernie Galeano M.D. Onset: Impaired fasting glycemia Ernie Galeano M.D. Onset: 08/01/2022 Chronic retention of urine Ernie Galeano M.D. Onset: 12/06/2022 Social History Type Date Description Comments Sex Unknown Lives With Alone Tobacco Use Start: Unknown Never Smoked Cigarettes Smoking Status Reviewed: 04/11/23 Never Smoked Cigaret cruz ETOH Use Rarely consumes alcohol Allergies and adverse reactions Description No Known Drug Allergies Medications Active Medications SIG Qnty Indications Ordering Provider Date [id number] Tablets 1 by mouth every day 90tabs Ernie Galeano M.D. 12/06/2022 Terazosin HCL5mg Capsules Take One Capsule By Mouth Every Day In The Evening 90caps Ernie Galeano, M.D. 12/06/2022 Losartan [id number] Tablets Take One Tablet By Mouth Every Day 90taekaterina Oneil M.D. Pravastatin [id number] Tablets Take One Tablet By Mouth Every Day 90taekaterina Oneil M.D. [id number] Tablets Take One Tablet By Mouth Twice A Day Jarad Munoz Prjkeqe5en Tablets Sherita Munoz [id number] Tablets Take 1 Tablet By Mouth Daily Jarad Munoz Vital Signs Date Vital Result Comment 09/03/2024 2:04pm BP Systolic 136 mmHg BP Diastolic 90 mmHg Heart Rate 95 /min Height 76 inches 6'4 Weight 262.50 lb BMI (Body Mass Index) 31.9 kg/m2 Results Test Acquired Date Facility Test Result H/L Range Note Comp. Metabolic Panel (14) 07/22/2024 [facility] Glucose 111 mg/dL High 70-99 BUN 22 mg/dL 8-27 Creatinine 1.25 mg/dL 0.76-1.2 7 eGFR 59 mL/min/1.73 Low >59 BUN/Creatinine Ratio 18 10-24 Sodium 141 mmol/L 134-144 Potassium 4.4 mmol/L 3.5-5.2 Chloride 105 mmol/L 96-106 Carbon Dioxide, Total 23 mmol/L 20-29 Calcium 10.6 mg/dL High 8.6-10.2 Protein, Total 6.4 g/dL 6.0-8.5 Albumin 3.9 g/dL 3.8-4.8 Globulin, Total 2.5 g/dL 1.5-4.5 Bilirubin, Total 0.4 mg/dL 0.0-1 .2 Alkaline Phosphatase 71 IU/L 44-121 Ast (Sgot) 16 IU/L 0-40 Alt (SGPT) 10 IU/L 0-44 Lipid Panel 07/22/2024 [facility] Cholesterol, Total 177 mg/dL 100-199 Triglycerides 180 mg/dL High 0-149 HDL Cholesterol 51 mg/dL >39 VLDL Cholestero l Saad 31 mg/dL 5-40 LDL Chol Calc (Nih) 95 mg/dL 0-99 LDL Calc Comment: TNP Hemoglobin A1c 07/22/2024 [facility] Hemoglobin A1c 6.1 % High 4.8-5.6 1 CBC With Differential/Plat elet 07/22/2024 [facility] WBC 7.4 x10E3/uL 3.4-10.8 RBC 4.12 x10E6/uL Low 4.14-5.8 0 Hemoglobin 12.7 g/dL Low 13.0-17. 7 Hematocrit 38.9 % 37.5-51. 0 MCV 94 fL 79-97 MCH 30.8 pg 26.6-33. 0 MCHC 32.6 g/dL 31.5-35. 7 RDW 12.5 % 11.6-15. 4 Platelets 156 x10E3/uL 150-450 Neutrophils 67 % Not Estab. Lymphs 25 % Not Estab. Monocytes 7 % Not Estab. Eos 1 % Not Estab. Basos 0 % Not Estab. Immature Cells TNP Neutrophils (Absolute) 4.9 x10E3/uL 1.4-7.0 Lymphs (Absolute) 1.8 x10E3/uL 0.7-3.1 Monocytes(Absol u te) 0.5 x10E3/uL 0.1-0.9 Eos (Absolute) 0.1 x10E3/uL 0.0-0.4 Baso (Absolute) 0.0 x10E3/uL 0.0-0.2 Immature Granulocytes 0 % Not Estab. Immature Grans (Abs) 0.0 x10E3/uL 0.0-0.1 NRBC TNP Hematology Comments: TNP Laboratory test finding 02/14/2024 [facility] Calcium 10.4 mg/dL High 8.6-10.2 2 Albumin 4.1 g/dL 3.8-4.8 PTH, Intact 75 pg/mL High 15-65 Comprehensive Metabolic Panl 04/06/2023 [facility] Glucose 103 mg/dL High (70-99) 3 BUN 19 mg/dL (8-23) Creatinine 1.1 mg/dL (0.7-1.2 ) Sodium 144 mmol/L (133-145 ) Potassium 4.2 mmol/L (3.6-5.2 ) Chloride 110 mmol/L High (98-107) Bicarbonate 25 mmol/L (22-29) Anion Gap 9 (4-17) Albumin 4.1 GM/DL (3.4-4.8 ) Calcium 10.4 mg/dL (8.6-10. 5) Bilirubin,Total 0.4 mg/dL (0-1.2 ) Total Protein 6.3 GM/DL (6.2-8.2 ) Ag Ratio 1.9 Ast 17 U/L (0-40) Alk Phos 75 U/L (40-129) Alt 13 U/L (0-41) Estimated GFR Creatinine 72 ML/MIN/1.73 M2 4 Lipid Panel 04/06/2023 [facility] Cholesterol, Total 183 mg/dL (<200) Triglyceride 70 mg/dL (<150) 5 HDL Chol 61 mg/dL (>39) LDL Cholesterol , Calculated 108 mg/dL (0-130) Non HDL Cholesterol (Calc) 122 mg/dL (<160) Complete Abc With Diff 04/06/2023 [facility] WBC 5.8 K/MM3 (4.0-11. 0) RBC 4.21 M/MM3 Low (4.70-6. 10) HGB 12.6 GM/DL Low (13.7-17 .1) HCT 38.3 % Low (40.5-50 .0) MCV 91.0 FL (80.0-94 .0) MCH 29.9 pg (27.0-34 .0) MCHC 32.9 g/dL Low (33.0-37 .0) PLT 148 K/MM3 Low (150-460 ) RDW-SD 46.9 FL (<47.0) MPV 11.7 FL (9.4-12. 4) Automated NRBC 0.0 #/100WBC'S Abs. NRBC 0.0 K/MM3 Neut # 2.4 K/MM3 (1.3-7.0 ) Lymph # 2.7 K/MM3 (0.8-3.1 ) [place]# 0.5 K/MM3 (0.4-1.3 ) Eo # 0.1 K/MM3 (0.0-0.4 ) Baso # 0.0 K/MM3 (0.0-0.1 ) Abs. Imm Gran 0.0 K/MM3 Neut 41.9 % Low (44-76) Lymph 46.2 % High (15-43) Monocyte 8.8 % (4.5-10. 5) Eo 2.4 % (0-6) Baso 0.5 % (0-2) Imm Gran 0.2 % Urinary Microalbumin 04/06/2023 [facility] Micro-Albumin 16.0 mg/L (<20) 6 Malb/Creat Ratio 15.1 MG/GM (0-2 0) Urine Creat For Micro Albumin 107.6 mg/dL Laboratory test finding 12/02/2022 [facility] Hemoglobin A1c 5.9 % High (4.0-5.6 ) 7 Calcium 10.5 mg/dL (8.6-10. 5) Glucose 95 mg/dL (70-99) Complete Abc With Diff 05/16/2022 [facility] WBC 5.5 K/MM3 (4.0-11. 0) RBC 4.12 M/MM3 Low (4.70-6. 10) HGB 12.8 GM/DL Low (13.7-17 .1) HCT 38.0 % Low (40.5-50 .0) MCV 92.2 FL (80.0-94 .0) MCH 31.1 pg (27.0-34 .0) MCHC 33.7 g/dL (33.0-37 .0) PLT 152 K/MM3 (150-460 ) RDW-SD 43.8 FL (<47.0) MPV 12.0 FL (9.4-12. 4) Automated NRBC 0.0 #/100WBC'S Abs. NRBC 0.0 K/MM3 Neut # 3.3 K/MM3 (1.3-7.0 ) Lymph # 1.7 K/MM3 (0.8-3.1 ) [place]# 0.3 K/MM3 Low (0.4-1.3 ) Eo # 0.1 K/MM3 (0.0-0.4 ) Baso # 0.0 K/MM3 (0.0-0.1 ) Abs. Imm Gran 0.0 K/MM3 Neut 59.8 % (44-76) Lymph 31.5 % (15-43) Monocyte 6.2 % (4.5-10. 5) Eo 1.6 % (0-6) Baso 0.5 % (0-2) Imm Gran 0.4 % Urinalysis Complete 05/16/2022 [facility] Appear/Color LIGHT YELLOW 8 SP. [place] 1.018 (1.002-1 .030) Urine PH 5.5 (5.0-8.0 ) Urine Albumin NEGATIVE (Neg) Urine Glucose NEGATIVE (Neg) Urine Ketones NEGATIVE (Neg) Urine Bilirubin NEGATIVE (Neg) Urine Hemoglobin NEGATIVE (Neg) Urine Nitrite NEGATIVE (Neg) Urine Leukocyte NEGATIVE (Neg) Urobilinogen NORMAL mg/dL (Norm) Urine WBCs 1 /HPF (0-5) Urine RBCs 2 /HPF (0-3) Mucus SLIGHT /LPF Squamous Epith <1 /HPF (0-8) Comprehensive Metabolic Panl 05/16/2022 [facility] Glucose 126 mg/dL High (70-99) BUN 20 mg/dL (8-23) Creatinine 1.0 mg/dL (0.7-1.2 ) Sodium 141 mmol/L (133-145 ) Potassium 4.3 mmol/L (3.6-5.2 ) Chloride 106 mmol/L (98-107) Bicarbonate 27 mmol/L (22-29) Anion Gap 8 (4-17) Albumin 4.1 GM/DL (3.4-4.8 ) Calcium 10.6 mg/dL High (8.6-10. 5) Bilirubin,Total 0.4 mg/dL (0-1.2 ) Total Protein 6.6 GM/DL (6.2-8.2 ) Ag Ratio 1.6 Ast 16 U/L (0-40) Alk Phos 57 U/L (40-129) Alt 16 U/L (0-41) Estimated GFR Creatinine 75 ML/MIN/1.73 M2 9 Lipid Panel 05/16/2022 [facility] Cholesterol, Total 188 mg/dL (<200) Triglyceride 105 mg/dL (<150) HDL Chol 48 mg/dL (>39) LDL Cholesterol , Calculated 119 mg/dL (0-130) Non HDL Cholesterol (Calc) 140 mg/dL (<160) 1 Prediabetes: 5.7 - 6 .4 Diabetes: >6.4 Glycemic control for adults with diabetes: <7.0 2 Verified by repeat analysis 3 Fasting 4 Creatinine based est imated glomerular filtration (eGFR) in adults is calculated using the National Kidney Foundation recommended 2020 CKD-EPI equation. Estimates GFR from serum creatinine, age and sex. 5 Fasting 6 The urine microalbum in test is designed to monitor renal function. When screening for Bence Wong proteinuria, urine electrophoresis is recommended. 7 MONITORING: In known diabetic patients, hemoglobin A1c targets should be discussed with health care provider. DIAGNOSTIC USE: The [place] Diabetes Association (ADA) and the World Health Organization (WHO) recommend the use of HbA1c to diagnose diabetes using a threshold of 6.5%. Patients who have an HbA1c between 5.7% and 6.4% are considered at increased risk for developing diabetes in the future. CAUTION: Falsely low HbA1c results may be observed in patients with hemolytic anemia, homozygous forms of abnormal hemoglobin (e.g. SS, CC, SC), , recent blood loss or hemoglobin F greater than 7%. Fructosamine may be used as an alternate test in these cases. REFERENCE: ADA: Standards of Medical Care in Diabetes 2020, The Journal of Clinical and Applied Research and Education Volume 43, Supplement 1 8 CLEAR 9 Creatinine based est imated glomerular filtration (eGFR) in adults is calculated using the National Kidney Foundation recommended 2020 CKD-EPI equation. Estimates GFR from serum creatinine, age and sex. Medical Devices Description No Information Available Encounters Type Date Location Provider Dx Diagnosis Office Visit 10/08/2024 9:44a Main Office ALEX Ayon E78.00 Pure hypercholesterolemia, unspecified I10 Essential (primary) hypertension Assessments Date Code Description Provider 10/08/2024 E78.00 Hypercholesterolemia ALEX Ayon 10/08/2024 I10 Essential hypertension ALEX Dave Plan of Treatment Future Appointment(s):* 01/30/2025 9:00 am - ALEX Ayon at Main Office 09/03/2024 - ALEX Ayon* I48.91 Unspecified atrial fibrillation Functional Status Description No Information Available Mental Status Description No Information Available Referrals Description No Information Available
--- NOTE | 2024-11-20 08:42 | A.OFFVIS_ITS ---
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 He has been doing very well from cardiac perspective. He says back to his functionality. Not getting any shortness of breath going up and down the flight of stairs. No orthopnea, PND no leg edema. Currently off diuretic therapy and using in his a p.r.n. basis. Has not noticed any irregular pulse. His smart was says as pulse been steady in the 60s to 70s. He denies any prolonged irregular heartbeat or palpitations. No lightheadedness, syncope. No exertional chest pain. His myocardial perfusion imaging was within normal limits. [facility] Medical History (Updated 11/20/24 @ 09:04 by Bebeto Hatfield MD) Atrial fibrillation with RVR Persistent atrial fibrillation HLD (hyperlipidemia) BPH loc w urin obs/LUTS CHF (congestive heart failure) HTN (hypertension) Social History Household Members: None Housing: Condominium Do you presently have visiting nurse or other home services: No Alcohol intake: former Patient Tobacco Use Status: Never used Tobacco Second Hand Smoke Exposure: No Substance Use Type: Marijuana service: No Review of Systems Const Denies chills, Denies fatigue, Denies fever(s), Denies frequent falls, Denies weakness, Denies weight gain and Denies weight loss ENT Denies dizziness Card Denies chest pain, Denies leg edema, Denies lightheadedness, Denies palpitations, Denies dyspnea, Denies dyspnea on exertion, Denies orthopnea and Denies other (loss of consciousness) Resp Denies cough, Denies dyspnea and Denies dyspnea on exertion GI Denies hematochezia and Denies change in stool character Musc Denies abnormal gait, Denies muscle weakness, Denies numbness, Denies radiating pain into limb and Denies tingling Neuro Denies abnormal gait, Denies dizziness, Denies frequent falls, Denies numbness, Denies tingling and Denies weakness Endo Denies fatigue and Denies palpitations Physical Exam Vital Signs: Last Vital Signs Pulse 58 11/20/24 08:44 BP 110/70 11/20/24 08:44 BMI result Body Mass Index 32.2 Const General: cooperative, comfortable, alert and awake Nutritional Appearance: overweight Orientation/consciousness: patient oriented x3 Neck Neck: Yes trachea midline, Yes supple and Yes no JVD Resp Effort & Inspection: normal respiratory effort Auscultation: clear to auscultation bilaterally Cardio Jugular venous distension: no JVD Palpation: normal PMI Rate: regular rate Rhythm: regular rhythm Heart sounds: S1 normal heart sound present, S2 normal heart sound present, no click, no gallops and Murmur heart sound present systolic early GI Auscultation: normal bowel sounds Skin General skin exam: no rashes or lesions noted Neuro General: patient oriented x3 and no focal motor deficits Extrem General: Yes no clubbing, cyanosis or edema Office Procedures EKG Details: EKG shows normal sinus rhythm with LVH with QRS widening [id number], Complete Assessment & Plan Assessment & Plan (1) Paroxysmal atrial fibrillation: Code(s): I48.0 - Paroxysmal atrial fibrillation Category: Medical Plan: Paroxysmal atrial fibrillation has done very well with rhythm control approach with much improved symptoms and resolution of heart failure syndrome. Continue rhythm control approach. There is no evidence of myocardial ischemia by recent myocardial perfusion imaging. Continue Multaq which is tolerated well. Continue full oral anticoagulation, currently on Eliquis 5 mg b.i.d.. Semi annual renal function test should be pursued. CHADSVASc score of 4. (2) CHF (congestive heart failure): Code(s): I50.9 - Heart failure, unspecified Category: Medical Plan: Congestive heart failure in the setting of atrial fibrillation. This has now resolved. LV ejection fraction by gated imaging is within normal limits. No signs or symptoms of heart failure. Continue rhythm control approach. Use Lasix as need be. Daily weight monitoring avoidance salt loading was discussed. Continue aggressive blood pressure control which is currently well optimized. Follow up in the clinic in 3 months for EKG in 6 months with me. Thank you for allowing me to partake in his care Coding Level of Care Code Est Pt Level 4 (03235) Complex EM visit Add On G2211 Diagnoses Paroxysmal atrial fibrillation I48.0 CHF (congestive heart failure) I50.9 CPT Codes EKG - CPT: 99170-[id number], Complete ([id number])
[2024-11-20 08:44] VITALS: BP 110/70; PULSE 58; BMI 32.2
== END 2024-11-20 09:12 | disposition home or self-care (01) ==
PROVIDERS: PCP Physician Assistant; Visit Provider Internal Medicine Cardiovascular Disease
DX: I48.0 Paroxysmal atrial fibrillation (principal); I50.9 Heart failure, unspecified
CPT/HCPCS: 93010; 99214; G2211

== ENCOUNTER → 2024-11-20 08:18 | Outpatient (BNVA) | payer MEDICARE, SELFPAY | PROVIDERS: PCP Physician Assistant; Visit Provider Internal Medicine Cardiovascular Disease | DX: I48.0 Paroxysmal atrial fibrillation (principal); I50.9 Heart failure, unspecified | CPT/HCPCS: 93005; 99212 ==

== ENCOUNTER 2025-01-24 08:21 | Outpatient (AMB) | payer MEDICARE, SELFPAY ==
--- NOTE | 2025-01-24 08:25 | MHC.OFFVIS ---
Intake Visit Reasons: 6m follow up Intake Note: Patient is present for a 6 month follow up Urology Med: Finasteride, Methenamine, Vitamin C Antibiotic Allergy: None Blood Thinner: None Team Foreman Required: No Accompanied by: Self / Same As Patient Allergies No Known Allergies Allergy (Verified 01/24/25 08:32) HPI Comments Details: Artis is a pleasant male. He is a patient of Dr. Galeano. Presents for the following urologic conditions - lower urinary tract symptoms with urinary retention - bladder diverticulum - neurogenic bladder Six-month follow-up Remains on clean intermittent catheterization Six-month follow-up - no infections Expected to maintain clean intermittent catheterization for the foreseeable future - 4-5 x a day - no prophylaxis - finasteride to enable easy catheterization Continue with six-month surveillance Lower urinary tract symptoms Episode of retention seen through emergency room Cannon catheter placed with 1 L Happened in September 2022 Had been on terazosin for many years 5 mg Current therapy finasteride 11/24 cystoscopy with large bladder diverticulum and cellules Started [facility] 05/24 [facility] Medical History (Updated 01/24/25 @ 08:37 by Michael Lambert MD) Atrial fibrillation with RVR Persistent atrial fibrillation HLD (hyperlipidemia) BPH loc w urin obs/LUTS CHF (congestive heart failure) HTN (hypertension) Social History Household Members: None Housing: Condominium Do you presently have visiting nurse or other home services: No Alcohol intake: former Patient Tobacco Use Status: Never used Tobacco Second Hand Smoke Exposure: No Substance Use Type: Marijuana service: No Review of Systems Const Denies chills and Denies fever(s) Card Reports no additional complaints and Denies syncope Resp Denies cough GI Denies abdominal pain and Denies heartburn Reports as per HPI and Denies change in libido Neuro Denies syncope Psych Denies change in libido Endo Denies change in libido Physical Exam Const General: cooperative, healthy appearing, comfortable and no acute distress Orientation/consciousness: patient oriented x3 HEENT Face and sinus: Yes normal facial exam Mouth: moist mucous membranes Neck Neck: Yes normal visual inspection, Yes full ROM and Yes trachea midline Chest Chest palpation & inspection: normal inspection of the chest Resp Effort & Inspection: normal respiratory effort, able to speak in complete sentences and no respiratory distress GI Inspection: Yes normal to inspection Back/Spine/Pelvis Cervical Spine: normal cervical lordosis Thoracic/Lumbar Spine: thoracic and lumbar spine normal to inspection Skin General skin exam: no rashes or lesions noted Neuro General: patient oriented x3, gait normal, tone normal and moves all extremities Extrem General: Yes normal to inspection and Yes capillary refill normal Assessment & Plan Assessment & Plan (1) BPH (benign prostatic hyperplasia): Code(s): N40.0 - Benign prostatic hyperplasia without lower urinary tract symptoms Category: Medical Qualifiers: Lower urinary tract symptom presence: symptoms present Lower urinary tract symptom detail: weak urinary stream Qualified Code(s): N40.1 - Benign prostatic hyperplasia with lower urinary tract symptoms; R39.12 - Poor urinary stream (2) Chronic UTI (urinary tract infection): Code(s): N39.0 - Urinary tract infection, site not specified Category: Medical (3) Hypotonic neurogenic bladder: Code(s): N31.9 - Neuromuscular dysfunction of bladder, unspecified Category: Medical Plan Right six-month follow-up tele Renal ultrasound Orders: Orders US renal BI 6 Months N31.9 - Neuromuscular dysfunction of bladder, unspecified Medications: Changed From terazosin 5 mg PO BEDTIME To terazosin 5 mg PO BEDTIME 90 days 90 caps 1RF Refilled finasteride 5 mg PO DAILY 90 days 90 tabs 1RF N32.0 - Bladder-neck obstruction Patient Instructions: This note is constructed using voice recognition software. While every effort has been made to ensure accuracy machine sign writer errors may have been included. Imaging studies, laboratory and physical exam results were discussed and reviewed in detail. No major barriers to patient understanding were identified. An opportunity to ask questions regarding the treatment plan was provided. All questions were answered. The patient expressed understanding and agreement with the above treatment plan. The patient is aware they should contact our office by phone for worsening of their current condition or the appearance of new urologic symptoms. Compliance is encouraged with any medications and followup testing that is ordered. It is a privilege to participate in the urologic care of your patient. If you have any questions or concerns regarding treatment for the above conditions, or other urologic issues, please do not hesitate to contact me. The office telephone contact is [phone]. Sincerely, Dr Michael Lambert MD, JEAN CARLOS [facility] Compassionate Specialist Care for the Genitourinary System Coding Level of Care Code Est Pt Level 3 (18489) Diagnoses Benign prostatic hyperplasia with weak urinary stream N40.1; R39.12 Lower urinary tract symptom presence: symptoms present Lower urinary tract symptom detail: weak urinary stream Chronic UTI (urinary tract infection) N39.0 Hypotonic neurogenic bladder N31.9
--- OUTSIDE RECORDS SUMMARY | 2025-01-24 08:27 | XMS_ITS | Continuity of Care Document ---
Author Organization [facility] [address] [place] [address] Phone [phone] Care Team Providers Care Inside Channel Account Manager Name Role Phone Jessica Carranza Care Team Information Receive r [phone] Problems Active Problems Provider Date Essential hypertension [...] Medications SIG Qnty Indications Ordering Provider Date [id number] Tablets 1 by mouth every day 90tabs Ernie Galeano M.D. 12/06/2022 Terazosin HCL5mg Capsules Take One Capsule By Mouth Every Day In The Evening 90caps Ernie Galeano M.D. 12/06/2022 Losartan [id number] Tablets Take One Tablet By Mouth Every Day 90taekaterina Oneil M.D. Pravastatin [id number] Tablets Take One Tablet By Mouth Every Day 90taekaterina Oneil M.D. [id number] Tablets Take One Tablet By Mouth Twice A Day Jarad Munoz [id number] Tablets Sherita Munoz [id number] Tablets Take 1 Tablet By Mouth Daily Jarad Munoz Vital Signs Date Vital Result Comment 09/03/2024 2:04pm BP Systolic 136 mmHg BP Diastolic 90 mmHg Heart Rate 95 /min Height 76 inches 6'4 Weight 262.50 lb BMI (Body Mass Index) 31.9 kg/m2 Results Test Acquired Date Facility Test Result H/L Range Note CBC With Differential/Plat elet 01/23/2025 [facility] WBC 5.9 x10E3/uL 3.4-10.8 RBC 4.04 x10E6/uL Low 4.14-5.8 0 Hemoglobin 12.8 g/dL Low 13.0-17. 7 Hematocrit 38.0 % 37.5-51. 0 MCV 94 fL 79-97 MCH 31.7 pg 26.6-33. 0 MCHC 33.7 g/dL 31.5-35. 7 RDW 12.9 % 11.6-15. 4 Platelets 147 x10E3/uL Low 150-450 Neutrophils 50 % Not Estab. Lymphs 41 % Not Estab. Monocytes 6 % Not Estab. Eos 3 % Not Estab. Basos 0 % Not Estab. Immature Cells TNP Neutrophils (Absolute) 2.9 x10E3/uL 1.4-7.0 Lymphs (Absolute) 2.4 x10E3/uL 0.7-3.1 Monocytes(Absol u te) 0.4 x10E3/uL 0.1-0.9 Eos (Absolute) 0.2 x10E3/uL 0.0-0.4 Baso (Absolute) 0.0 x10E3/uL 0.0-0.2 Immature Granulocytes 0 % Not Estab. Immature Grans (Abs) 0.0 x10E3/uL 0.0-0.1 NRBC TNP Hematology Comments: TNP Calcium 01/23/2025 [facility] Calcium 10.5 mg/dL High 8.6-10.2 Vitamin D, 25-Hydroxy 01/23/2025 [facility] Vitamin D, 25-Hydroxy 21.2 ng/mL Low 30.0-100 .0 1 Albumin 01/23/2025 [facility] Albumin 4.0 g/dL 3.8-4.8 PTH, Intact 01/23/2025 [facility] PTH, Intact 101 pg/mL High 15-65 Vitamin B12 01/23/2025 [facility] Vitamin B12 215 pg/mL Low 232-1245 Basic Metabolic Panel (8) 01/23/2025 [facility] Glucose 116 mg/dL High 70-99 BUN 19 mg/dL 8-27 Creatinine 1.17 mg/dL 0.76-1.2 7 eGFR 63 mL/min/1.73 >59 BUN/Creatinine Ratio 16 10-24 Sodium 143 mmol/L 134-144 Potassium 4.2 mmol/L 3.5-5.2 Chloride 107 mmol/L High 96-106 Carbon Dioxide, Total 22 mmol/L 20-29 Calcium <pending> Glomerular Filtration Rate Estimated 01/23/2025 [facility] Glomerular Filtration Rate Estimated <pending> Homocyst(E)Ine, Plasma 01/23/2025 [facility] Homocyst(e)ine 13.5 umol/L 0.0-19.2 Ferritin 01/23/2025 [facility] Ferritin 122 ng/mL 30-400 Iron And Tibc 01/23/2025 [facility] Iron Bind.Cap.(Tibc) 284 g /dL 250-450 Uibc 191 g /dL 111-343 Iron 93 g /dL 38-169 Iron Saturation 33 % 15-55 Hemoglobin A1c 07/22/2024 [facility] Hemoglobin A1c 6.1 % High 4.8-5.6 2 CBC With Differential/Plat elet 07/22/2024 [facility] WBC [...] Immature Grans (Abs) 0.0 x10E3/uL 0.0-0.1 NRBC [place] Hematology Comments: [facility] Lipid Panel 07/22/2024 [facility] Cholesterol, Total 177 mg/dL 100-199 Triglycerides 180 mg/dL High 0-149 HDL Cholesterol 51 mg/dL >39 VLDL Cholestero l Saad 31 mg/dL 5-40 LDL Chol Calc (Nih) 95 mg/dL 0-99 LDL Calc Comment: [facility] Comp. Metabolic Panel (14) 07/22/2024 [facility] Glucose [...] IU/L 0-40 Alt (SGPT) 10 IU/L 0-44 Calcium 02/14/2024 [facility] Calcium 10.4 mg/dL High 8.6-10.2 3 Albumin 02/14/2024 [facility] Albumin 4.1 g/dL 3.8-4.8 PTH, Intact 02/14/2024 [facility] PTH, Intact 75 pg/mL High 15-65 Comprehensive Metabolic Panl 04/06/2023 [facility] Glucose 103 mg/dL High (70-99) 4 BUN 19 mg/dL (8-23) Creatinine 1.1 mg/dL [...] (0-41) Estimated GFR Creatinine 72 ML/MIN/1.73 M2 5 Lipid Panel 04/06/2023 [facility] Cholesterol, Total 183 mg/dL (<200) Triglyceride 70 mg/dL (<150) 6 HDL Chol 61 mg/dL (>39) LDL Cholesterol , Calculated 108 mg/dL (0-130) Non HDL Cholesterol (Calc) 122 mg/dL (<160) Complete Abc With Diff 04/06/2023 [facility] WBC 5.8 K/MM3 (4.0-11. [...] ) Lymph # 2.7 K/MM3 (0.8-3.1 ) [place]# 0.5 K/MM3 (0.4-1.3 ) Eo # 0.1 K/MM3 (0.0-0.4 ) Baso # 0.0 K/MM3 (0.0-0.1 ) Abs. Imm Gran 0.0 K/MM3 Neut 41.9 % Low (44-76) Lymph 46.2 % High (15-43) Monocyte 8.8 % (4.5-10. 5) Eo 2.4 % (0-6) Baso 0.5 % (0-2) Imm Gran 0.2 % Urinary Microalbumin 04/06/2023 [facility] Micro-Albumin 16.0 mg/L (<20) 7 Malb/Creat Ratio 15.1 MG/GM (0-2 0) Urine Creat For Micro Albumin 107.6 mg/dL Hemoglobin A1c 12/02/2022 [facility] Hemoglobin A1c 5.9 % High (4.0-5.6 ) 8 Calcium 12/02/2022 [facility] Calcium 10.5 mg/dL (8.6-10. 5) Glucose 12/02/2022 [facility] Glucose 95 mg/dL (70-99) Complete Abc With Diff 05/16/2022 [facility] WBC 5.5 K/MM3 (4.0-11. [...] ) Lymph # 1.7 K/MM3 (0.8-3.1 ) [place]# 0.3 K/MM3 Low (0.4-1.3 ) Eo # 0.1 K/MM3 (0.0-0.4 ) Baso # 0.0 K/MM3 (0.0-0.1 ) Abs. Imm Gran 0.0 K/MM3 Neut 59.8 % (44-76) Lymph 31.5 % (15-43) Monocyte 6.2 % (4.5-10. 5) Eo 1.6 % (0-6) Baso 0.5 % (0-2) Imm Gran 0.4 % Urinalysis Complete 05/16/2022 [facility] Appear/Color LIGHT YELLOW 9 SP. Clarence 1.018 (1.002-1 .030) Urine PH 5.5 (5.0-8.0 ) Urine Albumin NEGATIVE (Neg) Urine Glucose NEGATIVE (Neg) Urine Ketones NEGATIVE (Neg) Urine Bilirubin NEGATIVE (Neg) Urine Hemoglobin NEGATIVE (Neg) Urine Nitrite NEGATIVE (Neg) Urine Leukocyte NEGATIVE (Neg) Urobilinogen NORMAL mg/dL (Norm) Urine WBCs 1 /HPF (0-5) Urine RBCs 2 /HPF (0-3) Mucus SLIGHT /LPF Squamous Epith <1 /HPF (0-8) Comprehensive Metabolic Panl 05/16/2022 [facility] Glucose 126 mg/dL High [...] (0-41) Estimated GFR Creatinine 75 ML/MIN/1.73 M2 10 Lipid Panel 05/16/2022 [facility] Cholesterol, Total 188 mg/dL (<200) Triglyceride 105 mg/dL (<150) HDL Chol 48 mg/dL (>39) LDL Cholesterol , Calculated 119 mg/dL (0-130) Non HDL Cholesterol (Calc) 140 mg/dL (<160) 1 Vitamin D deficiency has been defined by the [place] of [employer] and an Endocrine Society practice guideline as a level of serum 25-OH vitamin D less than 20 ng/mL (1,2). The Endocrine Society went on to further define vitamin D insufficiency as a level between 21 and 29 ng/mL (2). 1. IOM ([place] of [employer]). 2010. Dietary reference intakes for calcium and D. [place]: The National Academies Press. 2. Silvestre MF, [place] HASSAN, Ash ARMSTRONG, et al. Evaluation, treatment, and prevention of vitamin D deficiency: an Endocrine Society clinical practice guideline. JCEM. 2010; 96(7):1911-30. 2 Prediabetes: 5.7 - 6 .4 Diabetes: >6.4 Glycemic control for adults with diabetes: <7.0 3 Verified by repeat analysis 4 Fasting 5 Creatinine based est imated glomerular filtration (eGFR) in adults is calculated using the National Kidney Foundation recommended 2020 CKD-EPI equation. Estimates GFR from serum creatinine, age and sex. 6 Fasting 7 The urine microalbum in test is designed to monitor renal function. When screening for Bence Wong proteinuria, urine electrophoresis is recommended. 8 MONITORING: In known diabetic patients, hemoglobin A1c targets should be discussed with health care provider. DIAGNOSTIC USE: The [place] Diabetes Association (ADA) and the World Health [...] Research and Education Volume 43, Supplement 1 9 CLEAR 10 Creatinine based est imated glomerular filtration (eGFR) [...] Hypercholesterolemia ALEX Ayon 10/08/2024 I10 Essential hypertension AELX Dave Plan of Treatment Future Appointment(s):* 01/30/2025 9:00 am - ALEX Ayon at Main Office 09/03/2024 - ALEX Ayon* I48.91 Unspecified atrial fibrillation Functional Status Description No Information Available Mental Status Description No Information Available Referrals Description No Information Available
== END 2025-01-24 08:39 | disposition home or self-care (01) ==
LOC: HO.HUSH 08:22
PROVIDERS: PCP Internal Medicine Endocrinology, Diabetes & Metabolism; Visit Provider Urology
DX: N40.1 Benign prostatic hyperplasia with lower urinary tract symptoms (principal); R39.12 Poor urinary stream; N39.0 Urinary tract infection, site not specified; N31.9 Neuromuscular dysfunction of bladder, unspecified
CPT/HCPCS: 99213

== ENCOUNTER → 2025-01-24 08:21 | Outpatient (BNVA) | payer MEDICARE, SELFPAY | PROVIDERS: PCP Internal Medicine Endocrinology, Diabetes & Metabolism; Visit Provider Urology | DX: N40.1 Benign prostatic hyperplasia with lower urinary tract symptoms (principal); R33.8 Other retention of urine; R39.12 Poor urinary stream; N31.9 Neuromuscular dysfunction of bladder, unspecified; N39.0 Urinary tract infection, site not specified | CPT/HCPCS: 99212 ==

== ENCOUNTER → 2025-02-11 08:48 | Outpatient (BNVA) | payer MEDICARE, SELFPAY | PROVIDERS: PCP Physician Assistant; Visit Provider Internal Medicine Cardiovascular Disease ==

== ENCOUNTER 2025-05-26 08:24 | Outpatient (REF) | payer MEDICARE, SELFPAY ==
[2025-05-26 10:15] LABS: Hematocrit 37.3 % (42.0-52.0); Hemoglobin 12.4 g/dl (14.0-18.0); Mean Corpuscular HGB Conc 33.2 g/dl (31.0-36.0); Mean Corpuscular Hemoglobin 30.5 pg (27.0-33.0); Mean Corpuscular Volume 91.9 fL (80.0-98.0); NRBC Abs Auto 0.000 X10*3/uL (0.0-0.012); NRBC Pct Auto 0.0 /100WBC (0.0-0.2); Platelet Count 161 X10*3/uL (160-400); Red Blood Count 4.06 X10*6/uL (4.60-5.80); White Blood Count 6.7 X10*3/uL (4.8-10.8)
[2025-05-26 10:56] LABS: Anion Gap 11 (12-20); Blood Urea Nitrogen 25 mg/dL (9-16); Calcium 10.5 mg/dL (8.4-10.2); Carbon Dioxide 26 mmol/L (22-29); Chloride 110 mmol/L (96-108); Estimated Glomerular Filt Rate > 60; Potassium 4.2 mmol/L (3.3-5.1); Sodium 143 mmol/L (135-145)
[2025-05-26 11:13] LABS: B Type Natriuretic Peptide 92 pg/mL (<100)
== END 2025-05-26 08:25 | disposition home or self-care (01) ==
LOC: HO.LAB 08:24
PROVIDERS: PCP Physician Assistant; Visit Provider Internal Medicine Cardiovascular Disease
DX: I48.0 Paroxysmal atrial fibrillation (principal); I50.30 Unspecified diastolic (congestive) heart failure; E66.811 Obesity, class 1; I48.19 Other persistent atrial fibrillation; Z68.32 Body mass index [BMI] 32.0-32.9, adult
CPT/HCPCS: 36415; 80048; 83880; 85027; 93005; 99212

== ENCOUNTER 2025-05-26 08:24 | Outpatient (AMB) | payer MEDICARE, SELFPAY ==
--- NOTE | 2025-05-26 08:42 | A.OFFVIS_ITS ---
Vital Signs 05/26/25 08:45 Height 6 ft 4 in Weight 265 lb 14.04 oz BMI 32.4 BP 124/82 Blood Pressure Location Lt brachial Position Sitting Pulse 70 Pulse Source Monitor Intake Visit Reasons: 6m follow up Javascript Application Developer Required: No Allergies No Known Allergies Allergy (Verified 05/26/25 08:47) Medication List - Last Reconciled 05/26/25 by Bebeto Hatfield MD apixaban (Eliquis) 5 mg PO BID dronedarone (Multaq) 400 mg PO BID finasteride 5 mg PO DAILY 90 days furosemide 20 mg PO ONCE PRN losartan 100 mg PO DAILY pravastatin 40 mg PO DAILY terazosin 5 mg PO BEDTIME 90 days HPI Comments Details: Artis comes for follow-up. He has been doing very well from cardiac perspective. He is not exercising much but the other day he went for a walk trach and was able to do on a flat ground without any issues. He said when he goes up hill he gets short of breath. He denies any prolonged irregular heartbeat or palpitations. No lightheadedness, syncope. No bleeding issues or neurologic events. Takes all his medications regularly. Denies any exertional chest pain. Has been diagnose with prediabetes and currently on a diet to try to lose weight as well as control his sugars [facility] Medical History (Updated 05/26/25 @ 09:06 by Bebeot Hatfield MD) CHF (congestive heart failure) Atrial fibrillation with RVR Persistent atrial fibrillation HLD (hyperlipidemia) BPH loc w urin obs/LUTS HTN (hypertension) Social History Household Members: None Housing: Condominium Do you presently have visiting nurse or other home services: No Alcohol intake: former Patient Tobacco Use Status: Never used Tobacco Second Hand Smoke Exposure: No Substance Use Type: Marijuana service: No Review of Systems ENT Reports dizziness Card Denies chest pain, Denies chest pain at rest, Denies chest pain with activity, Denies rapid heart rate, Denies pedal edema, Denies edema, Denies leg edema, Denies lightheadedness, Denies palpitations, Denies dyspnea, Denies dyspnea on exertion and Denies orthopnea Resp Denies cough, Denies dyspnea and Denies dyspnea on exertion GI Denies hematochezia and Denies change in stool character Musc Denies abnormal gait, Reports limited range of motion, Reports muscle cramps, Denies muscle weakness, Denies numbness, Denies radiating pain into limb, Denies stiffness and Denies tingling Neuro Denies abnormal gait, Reports dizziness, Denies numbness and Denies tingling Endo Denies palpitations Physical Exam Vital Signs: Last Vital Signs Pulse 70 05/26/25 08:45 BP 124/82 05/26/25 08:45 BMI result Body Mass Index 32.4 Const General: cooperative, comfortable, alert and awake Nutritional Appearance: overweight Orientation/consciousness: patient oriented x3 Neck Neck: Yes trachea midline, Yes supple and Yes no JVD Resp Effort & Inspection: normal respiratory effort Auscultation: clear to auscultation bilaterally Cardio Jugular venous distension: no JVD Palpation: normal PMI Rate: regular rate Rhythm: regular rhythm Heart sounds: S1 normal heart sound present, S2 normal heart sound present, no click, no gallops and Murmur heart sound present systolic early GI Auscultation: normal bowel sounds Skin General skin exam: no rashes or lesions noted Neuro General: patient oriented x3 and no focal motor deficits Extrem General: Yes no clubbing, cyanosis or edema Office Procedures EKG Details: EKG shows normal sinus rhythm with left anterior fascicular block with left ventricular hypertrophy with repolarization abnormality 48921-[id number], Complete Assessment & Plan Assessment & Plan (1) Paroxysmal atrial fibrillation: Code(s): I48.0 - Paroxysmal atrial fibrillation Category: Medical Plan: Paroxysmal atrial fibrillation highly symptomatic due to loss of AV synchrony. Currently doing extremely well with rhythm control approach and currently doing well with Multaq therapy. Multaq as help him maintain rhythm and keep him out of hospital as well as manage his atrial fibrillation heart failure. Continue the same. EKGs every 3 months. Will continue full oral anticoagulation Eliquis 5 mg b.i.d.. Semi annual renal function and annual CBC check should be pursued. Follow-up echocardiogram in 6 months time. (2) Heart failure with preserved ejection fraction: Code(s): I50.30 - Unspecified diastolic (congestive) heart failure Category: Medical Plan: Heart failure preserved ejection fraction, clinically euvolemic well compensated. Currently taking Lasix only twice a day. We did discuss management of heart failure and additional diuretics as need be. Symptoms of heart failure were discussed. Continue aggressive blood pressure control which is currently well optimized on current medications. Continue low-salt diet. Encouraged to increase activity level as tolerated. Continue rhythm control approach as above. Will follow up in the clinic every 3 months for EKG in 6 months with me after echocardiogram. Thank you for allowing me to partake in his care Orders: Orders Basic Metabolic Panel Today I48.0 - Paroxysmal atrial fibrillation Complete Blood Count no Diff Today I48.0 - Paroxysmal atrial fibrillation CA echo transthoracic complete 6 Months I48.0 - Paroxysmal atrial fibrillation Coding Level of Care Code Est Pt Level 4 (58937) Complex EM visit Add On G2211 Diagnoses Paroxysmal atrial fibrillation I48.0 Heart failure with preserved ejection fraction I50.30 CPT Codes EKG - CPT: 68723-Ccmeycemdmihieget, Complete ([id number])
[2025-05-26 08:45] VITALS: BP 124/82; PULSE 70; BMI 32.4
--- OUTSIDE RECORDS SUMMARY | 2025-05-26 08:49 | XMS_ITS | Continuity of Care Document ---
Author Organization [facility] [address] [place] [address] Phone [phone] Care Team Providers Care Ship'S Electronic Warfare Officer Name Role Phone Jessica Carranza Care Team Information Receive r [phone] Problems Active Problems Provider Date Essential hypertension [...] Social History Type Date Description Comments Sex Male Sex Unknown Lives With Alone Tobacco Use Start: Unknown Never Smoked Cigarettes Smoking Status Reviewed: 01/30/25 Never Smoked Cigaret cruz ETOH Use Rarely consumes alcohol Allergies and adverse reactions Description No Known Drug Allergies Medications Active Medications SIG Qnty Indications Ordering Provider Date Sshfpajssxx7up Tablets 1 by mouth every day 90tabs Ernie Galeano M.D. 12/06/2022 Terazosin HCL5mg Capsules Take One Capsule By Mouth Every Day In The Evening 90caps Ernie Izenstein, M.D. 12/06/2022 Losartan Ulvkwtzim735vg Tablets Take One Tablet By Mouth Every Day 90taekaterina Oneil M.D. Pravastatin Uidyzc01he Tablets Take One Tablet By Mouth Every Day 90taekaterina Oneil M.D. Eayhle624oy Tablets Take One Tablet By Mouth Twice A Day Jarad Munoz Bpmrfmt1ao Tablets Take 1 tab twice day Jarad Munoz Sppefyjiht03rz Tablets Take 1 Tablet By Mouth prn Jarad Munoz Vital Signs Date Vital Result Comment 01/30/2025 9:12am BP Systolic 140 mmHg BP Diastolic 86 mmHg Heart Rate 66 /min Height 76 inches 6'4 Weight 268.12 lb BMI (Body Mass Index) 32.6 kg/m2 Results Test Acquired Date Facility Test Result H/L Range Note CBC With Differential/Plat elet 01/23/2025 [facility] WBC 5.9 x10E3/uL 3.4-10.8 1 RBC 4.04 x10E6/uL Low 4.14-5.8 0 Hemoglobin [...] D, 25-Hydroxy 21.2 ng/mL Low 30.0-100 .0 2 Albumin 01/23/2025 [facility] Albumin 4.0 g/dL 3.8-4.8 [...] 96-106 Carbon Dioxide, Total 22 mmol/L 20-29 Homocyst(E)Ine, Plasma 01/23/2025 [facility] Homocyst(e)ine 13.5 umol/L 0.0-19.2 Ferritin 01/23/2025 [facility] Ferritin 122 ng/mL 30-400 Iron And Tibc 01/23/2025 [facility] Iron Bind.Cap.(Tibc) 284 g/dL 250-450 Uibc 191 g/dL 111-343 Iron 93 g/dL 38-169 Iron Saturation 33 % 15-55 Methylmalonic Acid, Serum 01/23/2025 [facility] Methylmalonic Acid, Serum 195 nmol/L 0-378 Written Authorization 01/23/2025 [facility] Written Authorization See Comment: 3 Hemoglobin A1c 01/23/2025 [facility] Hemoglobin A1c 5.8 % High 4.8-5.6 4 Hemoglobin A1c 07/22/2024 [facility] Hemoglobin A1c 6.1 % High 4.8-5.6 5 CBC With Differential/Plat elet 07/22/2024 [facility] WBC [...] 0.0 x10E3/uL 0.0-0.1 NRBC [place] [facility]emat[facility] Comments: [facility] Lipid Panel 07/22/2024 [facility] Cholesterol, Total 177 mg/dL 100-199 Triglycerides 180 mg/dL High 0-149 HDL Cholesterol 51 mg/dL >39 VLDL Cholestero l Saad 31 mg/dL 5-40 LDL Chol Calc ([facility]) 95 mg/dL 0-99 LDL Calc Comment: [facility] Comp. Metabolic Panel (14) 07/22/2024 [facility] Glucose [...] 02/14/2024 [facility] Calcium 10.4 mg/dL High 8.6-10.2 6 Albumin 02/14/2024 [facility] Albumin 4.1 g/dL 3.8-4.8 PTH, Intact 02/14/2024 [facility] PTH, Intact 75 pg/mL High 15-65 Comprehensive Metabolic Panl 04/06/2023 [facility] Glucose 103 mg/dL High (70-99) 7 BUN 19 mg/dL (8-23) Creatinine 1.1 mg/dL [...] (0-41) Estimated GFR Creatinine 72 ML/MIN/1.73 M2 8 Lipid Panel 04/06/2023 [facility] Cholesterol, Total 183 mg/dL (<200) Triglyceride 70 mg/dL (<150) 9 HDL Chol 61 mg/dL (>39) LDL Cholesterol , Calculated 108 mg/dL (0-130) Non HDL Cholesterol (Calc) 122 mg/dL (<160) Complete Abc With Diff 04/06/2023 [facility] Reference [facility] WBC 5.8 K/MM3 (4.0-11. 0) [...] ) Lymph # 2.7 K/MM3 (0.8-3.1 ) [place]# 0.5 K/MM3 (0.4-1.3 ) Eo # 0.1 K/MM3 (0.0-0.4 ) Baso # 0.0 K/MM3 (0.0-0.1 ) Abs. Imm Gran 0.0 K/MM3 Neut 41.9 % Low (44-76) Lymph 46.2 % High (15-43) Monocyte 8.8 % (4.5-10. 5) Eo 2.4 % (0-6) Baso 0.5 % (0-2) Imm Gran 0.2 % Urinary Microalbumin 04/06/2023 [facility] Micro-Albumin 16.0 mg/L (<20) 10 Malb/Creat Ratio 15.1 MG/GM (0-2 0) Urine Creat For Micro Albumin 107.6 mg/dL Hemoglobin A1c 12/02/2022 [facility] Hemoglobin A1c 5.9 % High (4.0-5.6 ) 11 Calcium 12/02/2022 [facility] Calcium 10.5 mg/dL (8.6-10. 5) Glucose 12/02/2022 [facility] Glucose 95 mg/dL (70-99) Complete Abc With Diff 05/16/2022 [facility] WBC 5.5 K/MM3 (4.0-11. 0) [...] ) Lymph # 1.7 K/MM3 (0.8-3.1 ) [place]# 0.3 K/MM3 Low (0.4-1.3 ) Eo # 0.1 K/MM3 (0.0-0.4 ) Baso # 0.0 K/MM3 (0.0-0.1 ) Abs. Imm Gran 0.0 K/MM3 Neut 59.8 % (44-76) Lymph 31.5 % (15-43) Monocyte 6.2 % (4.5-10. 5) Eo 1.6 % (0-6) Baso 0.5 % (0-2) Imm Gran 0.4 % Urinalysis Complete 05/16/2022 [facility] Appear/Color LIGHT YELLOW 12 SP. [place] 1.018 (1.002-1 .030) Urine PH 5.5 (5.0-8.0 ) Urine Albumin NEGATIVE (Neg) Urine Glucose NEGATIVE (Neg) Urine Ketones NEGATIVE (Neg) Urine Bilirubin NEGATIVE (Neg) Urine Hemoglobin NEGATIVE (Neg) Urine Nitrite NEGATIVE (Neg) Urine Leukocyte NEGATIVE (Neg) Urobilinogen NORMAL mg/dL (Norm) Urine WBCs 1 /HPF (0-5) Urine RBCs 2 /HPF (0-3) Mucus SLIGHT /LPF Squamous Epith <1 /HPF (0-8) Comprehensive Metabolic Panl 05/16/2022 [facility] Glucose 126 mg/dL High (70-99) [...] (0-41) Estimated GFR Creatinine 75 ML/MIN/1.73 M2 13 Lipid Panel 05/16/2022 [facility] Cholesterol, Total 188 mg/dL (<200) Triglyceride 105 mg/dL (<150) HDL Chol 48 mg/dL (>39) LDL Cholesterol , Calculated 119 mg/dL (0-130) Non HDL Cholesterol (Calc) 140 mg/dL (<160) 1 Test(s) [id number] lmalonic Acid, Serum was developed and its performance characteristics determined by [employer]. It has not been cleared or approved by the Food and Drug Administration. 2 Vitamin D deficiency has been defined by the [place] of [employer] and an Endocrine Society practice guideline as a level of serum 25-OH vitamin D less than 20 ng/mL (1,2). The Endocrine Society went on to further define vitamin D insufficiency as a level between 21 and 29 ng/mL (2). 1. IOM ([place] of [employer]). 2010. Dietary reference intakes for calcium and D. [place]: The National Academies Press. 2. Silvestre MF, [place], Ash ARMSTRONG, et al. Evaluation, treatment, and prevention of vitamin D deficiency: an Endocrine Society clinical practice guideline. JCEM. 2010; 96(7):1911-30. 3 Written Authorizatio n Received. Authorization received from NADIA HINDS for Link Request on 01-30-2025 Logged by Alondra Whatley 4 Prediabetes: 5.7 - 6 .4 Diabetes: >6.4 Glycemic control for adults with diabetes: <7.0 5 Prediabetes: 5.7 - 6 .4 Diabetes: >6.4 Glycemic control for adults with diabetes: <7.0 6 Verified by repeat analysis 7 Fasting 8 Creatinine based est imated glomerular filtration (eGFR) in adults is calculated using the National Kidney Foundation recommended 2020 CKD-EPI equation. Estimates GFR from serum creatinine, age and sex. 9 Fasting 10 The urine microalbum in test is designed to monitor renal function. When screening for Bence Wong proteinuria, urine electrophoresis is recommended. 11 MONITORING: In known diabetic patients, hemoglobin A1c targets should be discussed with health care provider. DIAGNOSTIC USE: The [place] Diabetes Association (ADA) and the World Health [...] Research and Education Volume 43, Supplement 1 12 CLEAR 13 Creatinine based est imated glomerular filtration (eGFR) in adults is calculated using the National Kidney Foundation recommended 202 CKD-EPI equation. Estimates GFR from serum creatinine, age and sex. Medical Devices Description No Information Available Encounters Type Date Location Provider Dx Diagnosis Office Visit 10/08/2024 9:44a Main Office ALEX Ayon E78.00 Pure hypercholesterolemia, unspecified I10 Essential (primary) hypertension Assessments Date Code Description Provider 01/30/2025 E78.00 Hypercholesterolemia ALEX Ayon 01/30/2025 I10 Essential hypertension ALEX Dave 01/30/2025 I48.0 Paroxysmal atrial fibrillati on ALEX Ayon 01/30/2025 E21.3 Hyperparathyroidism, unspeci fied ALEX Ayon 01/30/2025 N40.0 Benign prostatic hyperplasia ALEX Ayon 01/30/2025 R73.03 Prediabetes ALEX Ayon 01/30/2025 I50.9 Heart failure, unspecified R ALEX Bowling 01/30/2025 D64.9 Anemia, unspecified ALEX Marroquin 01/30/2025 E55.9 Vitamin D deficiency, unspec ified ALEX Ayon Plan of Treatment Future Appointment(s):* 06/03/2025 8:45 am - Julienne Roberts CNP at Main Office 01/30/2025 - ALEX Ayon* E78.00 Hypercholesterolemia * I10 Essential hypertension * I48.0 Paroxysmal atrial fibrillation * E21.3 Hyperparathyroidism, unspecified * N40.0 Benign prostatic hyperplasia * R73.03 Prediabetes * I50.9 Heart failure, unspecified * D64.9 Anemia, unspecified * E55.9 Vitamin D deficiency, unspecified Functional Status Description No Information Available Mental Status Description No Information Available Referrals Description No Information Available
== END 2025-05-26 09:08 | disposition home or self-care (01) ==
LOC: HO.HCS 08:24
PROVIDERS: PCP Physician Assistant; Visit Provider Internal Medicine Cardiovascular Disease
DX: I48.0 Paroxysmal atrial fibrillation (principal); I50.30 Unspecified diastolic (congestive) heart failure
CPT/HCPCS: 93010; 99214; G2211

== ENCOUNTER 2025-07-11 10:20 | Outpatient (REF) | payer MEDICARE, SELFPAY ==
--- NOTE | ~2025-07-11 | US_ITS ---
CLINICAL HISTORY: N31.9 - Neuromuscular dysfunction of bladder, unspecified US Renal Comparison: None provided Findings: Right kidney normal size and echotexture, 12.7 cm length. Left kidney normal size and echotexture, 13.4 cm length. No hydronephrosis of either kidney. 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 Normal color Doppler. IMPRESSION: 1. No acute findings. This document has been electronically signed by: Isidoro Baptiste MD on 07/12/2025 09:04:30
--- OUTSIDE RECORDS SUMMARY | 2025-07-11 11:20 | XMS_ITS | Continuity of Care Document ---
Author Organization [facility] [address] [place] [address] Phone [phone] Care Team Providers Care Double Cut Off Saw Operator Name Role Phone Julienne Roberts CNP Care Team Informatio n Head Operator Sulfide [phone] Problems Active Problems Provider Date Essential hypertension [...] Medications SIG Qnty Indications Ordering Provider Date Oidaswqzcbf4vl Tablets 1 by mouth every day 90tabs Ernie Galeano M.D. 12/06/2022 Terazosin HCL5mg Capsules Take One Capsule By Mouth Every Day In The Evening 90caps Ernie Izenstein, M.D. 12/06/2022 Losartan Bteneipma976ef Tablets Take One Tablet By Mouth Every Day 90taekaterina Oneil M.D. Pravastatin Ksgnkf32gb Tablets Take One Tablet By Mouth Every Day 90taekaterina Oneil M.D. Ciogzb062hu Tablets Take One Tablet By Mouth Twice A Day Jarad Munoz Suenvpq4ca Tablets Take 1 tab twice day Jarad Munoz Zoojtdotur39rg Tablets Take 1 Tablet By Mouth prn Jarad Munoz Vital Signs Date Vital Result Comment 06/03/2025 8:25am BP Systolic 132 mmHg BP Diastolic 90 mmHg Heart Rate 75 /min Height 76 inches 6'4 Weight 267.00 lb BMI (Body Mass Index) 32.5 kg/m2 Results Test Acquired Date Facility Test [...] 0.0 x10E3/uL 0.0-0.1 NRBC [place] [facility] Comments: [facility] Lipid Panel 07/22/2024 [facility] Cholesterol, Total 177 mg/dL 100-199 Triglycerides 180 mg/dL High 0-149 HDL Cholesterol 51 mg/dL >39 VLDL Cholestero l Saad 31 mg/dL 5-40 LDL Chol Calc ([facility]) 95 mg/dL 0-99 LDL Calc Comment: [facility] Comp. Metabolic Panel (14) 07/22/2024 [facility] [...] pg/mL High 15-65 Comprehensive Metabolic Panl 04/06/2023 [facility] Lab Glucose 103 mg/dL High [...] 72 ML/MIN/1.73 M2 8 Lipid Panel 04/06/2023 [facility] Cholesterol, Total 183 mg/dL (<200) Triglyceride 70 mg/dL (<150) 9 HDL Chol 61 mg/dL (>39) LDL Cholesterol , Calculated 108 mg/dL (0-130) Non HDL Cholesterol (Calc) 122 mg/dL (<160) Complete Abc With Diff 04/06/2023 [facility] Reference Lab WBC 5.8 K/MM3 (4.0-11. [...] ) Lymph # 2.7 K/MM3 (0.8-3.1 ) [place]# 0.5 K/MM3 (0.4-1.3 ) Eo # 0.1 K/MM3 (0.0-0.4 ) Baso # 0.0 K/MM3 (0.0-0.1 ) Abs. Imm Gran 0.0 K/MM3 Neut 41.9 % Low (44-76) Lymph 46.2 % High (15-43) Monocyte 8.8 % (4.5-10. 5) Eo 2.4 % (0-6) Baso 0.5 % (0-2) Imm Gran 0.2 % Urinary Microalbumin 04/06/2023 [facility] Micro-Albumin 16.0 mg/L (<20) 10 Malb/Creat Ratio 15.1 MG/GM (0-2 0) Urine Creat For Micro Albumin 107.6 mg/dL Hemoglobin A1c 12/02/2022 [facility] Hemoglobin A1c 5.9 % High (4.0-5.6 ) 11 Calcium 12/02/2022 [facility] Calcium 10.5 mg/dL (8.6-10. 5) Glucose 12/02/2022 [facility] Glucose 95 mg/dL (70-99) Complete Abc With Diff 05/16/2022 [facility] WBC 5.5 K/MM3 (4.0-11. [...] ) Lymph # 1.7 K/MM3 (0.8-3.1 ) [place]# 0.3 K/MM3 Low (0.4-1.3 ) Eo # 0.1 K/MM3 (0.0-0.4 ) Baso # 0.0 K/MM3 (0.0-0.1 ) Abs. Imm Gran 0.0 K/MM3 Neut 59.8 % (44-76) Lymph 31.5 % (15-43) Monocyte 6.2 % (4.5-10. 5) Eo 1.6 % (0-6) Baso 0.5 % (0-2) Imm Gran 0.4 % Urinalysis Complete 05/16/2022 [facility] Appear/Color LIGHT YELLOW 12 SP. [place] 1.018 (1.002-1 .030) Urine PH 5.5 (5.0-8.0 ) Urine Albumin NEGATIVE (Neg) Urine Glucose NEGATIVE (Neg) Urine Ketones NEGATIVE (Neg) Urine Bilirubin NEGATIVE (Neg) Urine Hemoglobin NEGATIVE (Neg) Urine Nitrite NEGATIVE (Neg) Urine Leukocyte NEGATIVE (Neg) Urobilinogen NORMAL mg/dL (Norm) Urine WBCs 1 /HPF (0-5) Urine RBCs 2 /HPF (0-3) Mucus SLIGHT /LPF Squamous Epith <1 /HPF (0-8) Comprehensive Metabolic Panl 05/16/2022 [facility] Glucose 126 mg/dL High [...] 75 ML/MIN/1.73 M2 13 Lipid Panel 05/16/2022 [facility] Cholesterol, Total 188 mg/dL (<200) Triglyceride 105 mg/dL (<150) HDL Chol 48 mg/dL (>39) LDL Cholesterol , Calculated 119 mg/dL (0-130) Non HDL Cholesterol (Calc) 140 mg/dL (<160) 1 Test(s) [id number] lmalonic Acid, Serum was developed and its performance characteristics determined by [employer]. It has not been cleared or approved by the Food and Drug Administration. 2 Vitamin D deficiency has been defined by the [place] of Medicine and an Endocrine Society practice guideline as a level of serum 25-OH vitamin D less than 20 ng/mL (1,2). The Endocrine Society went on to further define vitamin D insufficiency as a level between 21 and 29 ng/mL (2). 1. IOM ([place] [employer]). 2010. Dietary reference intakes for [...] calculated using the National Kidney Foundation recommended 2021 CKD-EPI equation. Estimates GFR from serum creatinine, age and sex. 9 Fasting 10 The urine microalbum in test is designed to monitor renal function. When screening for Bence Wong proteinuria, urine electrophoresis is recommended. 11 MONITORING: In known diabetic patients, hemoglobin A1c targets should be discussed with health care provider. DIAGNOSTIC USE: The [place] Diabetes Association (ADA) and the World Health [...] Date Location Provider Dx Diagnosis Office Visit 06/03/2025 8:45a Main Office Julienne Roberts CNP I10 Essential (primary) hypertension I48.0 Paroxysmal atrial fi brillation N40.0 Benign prostatic hyp erplasia without lower urinry tract symp I50.9 Heart failure, unspe cified D64.9 Anemia, unspecified E55.9 Vitamin D deficiency , unspecified R73.03 Prediabetes E78.5 Hyperlipidemia, unsp ecified E21.3 Hyperparathyroidism, unspecified Assessments Date Code Description Provider 06/03/2025 I10 Essential hypertension Brittney Roberts, GUILLERMINA 06/03/2025 I48.0 Paroxysmal atrial fibrillati on Julienne Roberts, GUILLERMINA 06/03/2025 N40.0 Benign prostatic hyperplasia Julienne Roberts CNP 06/03/2025 I50.9 Heart failure, unspecified L rajni Roberts, GUILLERMINA 06/03/2025 D64.9 Anemia, unspecified Julienne Bell, FINANCIAL SERVICES TECHNICIAN 06/03/2025 E55.9 Vitamin D deficiency, unspec ified Julienne Roberts, FINANCIAL SERVICES TECHNICIAN 06/03/2025 R73.03 Prediabetes Julienne rhodes, FINANCIAL SERVICES TECHNICIAN 06/03/2025 E78.5 Hyperlipidemia, unspecified Julienne Roberts, FINANCIAL SERVICES TECHNICIAN 06/03/2025 E21.3 Hyperparathyroidism, unspeci fied Julienne Roberts CNP Plan of Treatment Future Appointment(s):* 12/01/2025 9:00 am - Julienne Roberts CNP at Main Office 06/03/2025 - Julienne Roberts CNP* I10 Essential hypertension * I48.0 Paroxysmal atrial fibrillation * N40.0 Benign prostatic hyperplasia * I50.9 Heart failure, unspecified * D64.9 Anemia, unspecified * E55.9 Vitamin D deficiency, unspecified * R73.03 Prediabetes * E78.5 Hyperlipidemia, unspecified * E21.3 Hyperparathyroidism, unspecified* New Labs:* Hemoglobin A1c, Ordered: 06/03/25 * CBC With Differential/Platelet, Ordered: 06/03/25 * Calcium, Ordered: 06/03/25 * Basic Metabolic Panel (8), Ordered: 06/03/25 * Vitamin D, 25-Hydroxy, Ordered: 06/03/25 * Vitamin B12, Ordered: 06/03/25 * PTH, Intact, Ordered: 06/03/25 Functional Status Description No Information Available Mental Status Description No Information Available Referrals Description No Information Available
== END 2025-07-11 10:21 | disposition home or self-care (01) ==
LOC: HO.US 10:20
PROVIDERS: Visit Provider Urology
DX: N31.9 Neuromuscular dysfunction of bladder, unspecified (principal)
CPT/HCPCS: 76775

== ENCOUNTER → 2025-07-11 10:22 | Outpatient (BNV) | payer MEDICARE, SELFPAY | PROVIDERS: Visit Provider Specialist | DX: N28.1 Cyst of kidney, acquired (principal) | CPT/HCPCS: 76775 ==

== ENCOUNTER 2025-08-03 16:27 | Emergency (ER) | payer MEDICARE, SELFPAY ==
--- NOTE | ~2025-08-03 | XR_ITS ---
CLINICAL HISTORY: ?constipation 1 view abdomen Comparison: None provided Findings: Seven images are submitted to attempt the one view study. No small bowel dilatation defined in the imaged abdomen. Severe stool burden is present, including in the cecum. Vascular calcifications include phleboliths in the pelvis. 1.1 cm calcification is nonspecific in the left upper quadrant. Differential considerations include ingested material. Degenerative changes include the partially imaged hips and partially imaged spine. Imaged vertebral height losses are age indeterminate by radiographs. IMPRESSION: 1. No small bowel obstruction by one view x-ray of the abdomen. 2. Severe stool burden. This document has been electronically signed by: Delano Dawson MD on 08/03/2025 19:18:58
[2025-08-03 16:55] VITALS: BP 153/72; PULSE 68; RESP 18; TEMP 36.1; O2SAT 96; BMI 32.1
--- NOTE | 2025-08-03 16:59 | ED_ITS ---
HPI - Male Genitourinary General Chief complaint: Urogenital-Male Stated complaint: cant urine Time Seen by Provider: 08/03/25 17:56 Source: patient Mode of arrival: ambulatory Limitations: no limitations History of Present Illness ED Provider: HPI Narrative: 79-year-old male who has been his soft catheterizing for the past 1 year sounds like due to neurogenic bladder, we will states has not been getting out as much urine as usually, no fevers or chills no nausea no vomiting no dysuria but he states it has happened to him in the past usually due to UTI, Related Data Home Medications ?Medication ?Instructions ?Recorded ?Confirmed losartan 100 mg tablet 100 mg PO DAILY 10/10/22 pravastatin 40 mg tablet 40 mg PO DAILY 10/10/2205/03 Previous Rx's ?Medication ?Instructions ?Recorded furosemide 20 mg tablet 20 mg PO ONCE PRN edema #20 tabs 11/08/24 apixaban 5 mg tablet (Eliquis) 5 mg PO BID #180 tabs 0 11/12/24 dronedarone 400 mg tablet (Multaq) 400 mg PO BID #180 tabs 11/12/24 finasteride 5 mg tablet 5 mg PO DAILY 90 days #90 ta bs 01/24/25 terazosin 5 mg capsule 5 mg PO BEDTIME 90 days #90 caps 01/24/25 nitrofurantoin 100 mg PO BID 7 days #14 cap s 08/03/25 monohydrate/macrocrystals 100 mg capsule (Macrobid) Allergies Allergy/AdvReac Type Severity Reaction Status Date / Time No Known Allergies Allergy Verified 08/03/25 16:59 Review of Systems 2 Constitutional: Constitutional: Reports as per [facility] Past Medical History Medical History (Updated 08/03/25 @ 19:34 by Giorgio Young DO) CHF (congestive heart failure) Atrial fibrillation with RVR Persistent atrial fibrillation HLD (hyperlipidemia) BPH loc w urin obs/LUTS HTN (hypertension) Social History Social History Household Members: None Housing: Condominium Do you presently have visiting nurse or other home services: No Alcohol intake: former Patient Tobacco Use Status: Never used Tobacco Smoked in Last 30 Days: No Second Hand Smoke Exposure: No Substance Use Type: Marijuana Substance Use Frequency: Occasionally Advance Directives: No Advance Directives Information Provided: Yes service: No Physical Exam 2 Exam: Exam: Patient is well-appearing alert and oriented x4, exam with normal testicles and penis, patient is self catheterized for sample Vital Signs: Vital Signs: Last Vital Signs Temp 97.0 F 08/03/25 16:55 Pulse 68 08/03/25 16:55 Resp 18 08/03/25 16:55 BP 153/72 H 08/03/25 16:55 Pulse Ox 96 08/03/25 16:55 O2 Del Method Room Air 08/03/25 16:55 BMI result Body Mass Index 32.1 Course Course Course Narrative: This is a Rapid Medical Exam performed in triage by Carol Hubbard PA-C. Full HPI, ROS and PE to be performed by primary ED provider. 79 yo M w/PMHx CHF, Afib RVR, HLD, HTN, BPH - self caths x1yr -presenting to the ED c/o decreased UOP x few days. denies hematuria/abdominal pain PE: NAD, nontoxic appearing Plan: Labs, UA, bladder scan Medical Decision Making Medical Decision Making [facility] Narrative: 6:12 PM 08/03/2025 (Dr. Giorgio Young): History of hypotonic neurogenic bladder we will obtain urinalysis, patient is concerned he may have a UTI, self catheterized, gave us a sample, blood work without dehydration or MOOK 7:33 PM 08/03/2025 (Dr. Giorgio Young): Based on prior culture sensitivity to Macrobid we will discharge with that 1st dose in the ER Differential Diagnosis Differential Diagnoses: The differential diagnosis associated with the presentation includes (UTI, dehydration, MOOK, urethral strictures) Admission/Observation Consideration of admission/observation: Escalation of care including admission/observation considered Lab Data [facility] Lab Attestation statement: I reviewed the patient's lab results. 08/03/25 17:08 08/03/25 17:08 Labs: Lab Results 08/03/25 08/03/25 Range/Units 17:08 18:17 WBC 8.1 (4.8-10.8) X10*3/uL RBC 4.00 L (4.60-5.80) X10*6/uL Hgb 12.1 L (14.0-18.0) g/dl Hct 37.5 L (42.0-52.0) % MCV 93.8 (80.0-98.0) fL MCH 30.3 (27.0-33.0) pg MCHC 32.3 (31.0-36.0) g/dl RDW 12.7 (11.0-16.0) % Plt Count 157 L (160-400) X10*3/uL MPV 11.1 (9.4-12.4) fL Immature Gran % (Auto) 0.2 (0.0-0.4) % Neut % (Auto) 63.5 (45-73) % Lymph % (Auto) 25.2 (20-40) % [place] % (Auto) 8.8 (2-11) % Eos % (Auto) 1.9 (0-4) % Baso % (Auto) 0.4 (0-2) % Lymph # (Auto) 2.0 (1.2-4.9) X10*3/uL [place] # (Auto) 0.7 (0.1-1.2) X10*3/uL Eos # (Auto) 0.2 (0.0-0.4) X10*3/uL Baso # (Auto) 0.0 (0.0-0.2) X10*3/uL Abs Immat Gran (auto) 0.02 (0.00-0.03) X10*3/uL Absolute Neuts (auto) 5.1 (2.0-8.3) x10*3/uL Absolute Nucleated RBC 0.000 (0.0-0.012) X10*3/uL Nucleated RBC % (auto) 0.0 (0.0-0.2) /100WBC Sodium 144 (135-145) mmol/L Potassium 4.1 (3.3-5.1) mmol/L Chloride 112 H (96-108) mmol/L Carbon Dioxide 24 (22-29) mmol/L Anion Gap 12 (12-20) BUN 21 H (9-16) mg/dL Creatinine 1.37 (0.5-1.4) mg/dL Estim Creat Clear Calc 61.7 Estimated GFR 50 Random Glucose 119 H (60-115) mg/dL Calcium 10.0 (8.4-10.2) mg/dL Urine Color Dark Yellow Urine Appearance Turbid Urine pH 7.0 (5.0-9.0) Ur Specific [place] 1.025 (1.005-1.025) Urine Protein 300 (3+) H (Neg-Trace) mg/dL Urine Glucose (UA) Negative (Negative) mg/dL Urine Ketones Trace (Negative) mg/dL Urine Blood Large (3+) H (Negative) Urine Nitrite Negative (Negative) Ur Leukocyte Esterase Moderate (2+) H (Negative) Urine RBC >20 H (0-2) /HPF Urine WBC >50 H (0-5) /HPF Ur Squamous Epith Cells 0-2 (0-2) /HPF Urine Bacteria 4+ (None Seen) Hyaline Casts 3-5 (0-2) /LPF Discharge Plan Discharge Clinical Impression: Urinary tract infection, Hypotonic neurogenic bladder Patient Disposition: Home, Self-Care Additional Instructions: Your blood work is reassuring, urine is consistent with a UTI, 1st dose of antibiotics in the ER, continue starting tomorrow as prescribed twice daily for the next 7 days, any other issues or worsening symptoms concerns come back to the ER otherwise follow up with the PCP Prescriptions: New nitrofurantoin monohyd/m-cryst [Macrobid] 100 mg capsule 100 mg PO BID 7 Days Qty: 14 0RF Rx Instructions: must administer with a meal/food No Action furosemide 20 mg tablet 20 mg PO ONCE PRN (Reason: edema) Qty: 20 0RF Rx Instructions: Take only with excess swelling or weight gain. Do not take daily. Eliquis 5 mg tablet 5 mg PO BID Qty: 180 3RF Multaq 400 mg tablet 400 mg PO BID Qty: 180 3RF losartan 100 mg tablet 100 mg PO DAILY pravastatin 40 mg tablet 40 mg PO DAILY finasteride 5 mg tablet 5 mg PO DAILY 90 Days Qty: 90 1RF terazosin 5 mg capsule 5 mg PO BEDTIME 90 Days Qty: 90 1RF Print Language: Indonesian
[2025-08-03 17:29] LABS: MANUAL DIFF FLAG NO
[2025-08-03 17:31] LABS: Hematocrit 37.5 % (42.0-52.0); Hemoglobin 12.1 g/dl (14.0-18.0); Imm Gran Abs Auto 0.02 X10*3/uL (0.00-0.03); Imm Gran Pct Auto 0.2 % (0.0-0.4); Lymphocytes Absolute Auto 2.0 X10*3/uL (1.2-4.9); Mean Corpuscular HGB Conc 32.3 g/dl (31.0-36.0); Mean Corpuscular Hemoglobin 30.3 pg (27.0-33.0); Mean Corpuscular Volume 93.8 fL (80.0-98.0); NRBC Abs Auto 0.000 X10*3/uL (0.0-0.012); NRBC Pct Auto 0.0 /100WBC (0.0-0.2); Platelet Count 157 X10*3/uL (160-400); Red Blood Count 4.00 X10*6/uL (4.60-5.80); White Blood Count 8.1 X10*3/uL (4.8-10.8)
[2025-08-03 17:48] LABS: Anion Gap 12 (12-20); Blood Urea Nitrogen 21 mg/dL (9-16); Calcium 10.0 mg/dL (8.4-10.2); Carbon Dioxide 24 mmol/L (22-29); Chloride 112 mmol/L (96-108); Creatinine Clr Calc Pharmacy 61.7; Estimated Glomerular Filt Rate 50; Potassium 4.1 mmol/L (3.3-5.1); Sodium 144 mmol/L (135-145)
--- OUTSIDE RECORDS SUMMARY | 2025-08-03 18:12 | XMS_ITS | Continuity of Care Document ---
Author Organization [facility] [address] [place] [address] Phone [phone] Care Team Providers [employer] Hand Name Role Phone Julienne Roberts CNP Care Team Informatio n Furrier Apprentice [phone] Problems Active Problems Provider Date Essential hypertension [...] Medications SIG Qnty Indications Ordering Provider Date [id number] Tablets 1 by mouth every day 90tabs Ernie Galeano M.D. 12/06/2022 Terazosin HCL5mg Capsules Take One Capsule By Mouth Every Day In The Evening 90caps Ernie Izenstein, M.D. 12/06/2022 Losartan [id number] Tablets Take One Tablet By Mouth Every Day 90taekaterina Oneil M.D. Pravastatin Lyjwok21gu Tablets Take One Tablet By Mouth Every Day 90taekaterina Oneil M.D. Mshozi561jn Tablets Take One Tablet By Mouth Twice A Day Jarad Munoz Bbsvbsa5xe Tablets Take 1 tab twice day Jarad Munoz Gldfzedlbv04cs Tablets Take 1 Tablet By Mouth prn [...] 0.0 x10E3/uL 0.0-0.1 NRBC [place] [facility] Comments: [facility] Lipid Panel 07/22/2024 [facility] Cholesterol, Total 177 mg/dL 100-199 Triglycerides 180 mg/dL High 0-149 HDL Cholesterol 51 mg/dL >39 VLDL Cholestero l Saad 31 mg/dL 5-40 LDL Chol Calc ([facility]) 95 mg/dL 0-99 LDL Calc Comment: [facility] Comp. Metabolic Panel (14) 07/22/2024 [facility] [...] pg/mL High 15-65 Comprehensive Metabolic Panl 04/06/2023 [facility] Glucose 103 mg/dL High [...] 72 ML/MIN/1.73 M2 8 Lipid Panel 04/06/2023 [facility] Cholesterol, Total 183 mg/dL (<200) Triglyceride 70 mg/dL (<150) 9 HDL Chol 61 mg/dL (>39) LDL Cholesterol , Calculated 108 mg/dL (0-130) Non HDL Cholesterol (Calc) 122 mg/dL (<160) Complete Abc With Diff 04/06/2023 [facility] WBC 5.8 K/MM3 (4.0-11. [...] ) Lymph # 2.7 K/MM3 (0.8-3.1 ) [place]# 0.5 K/MM3 (0.4-1.3 ) Eo # 0.1 K/MM3 (0.0-0.4 ) Baso # 0.0 K/MM3 (0.0-0.1 ) Abs. Imm Gran 0.0 K/MM3 Neut 41.9 % Low (44-76) Lymph 46.2 % High (15-43) Monocyte 8.8 % (4.5-10. 5) Eo 2.4 % (0-6) Baso 0.5 % (0-2) Imm Gran 0.2 % Urinary Microalbumin 04/06/2023 [facility] Micro-Albumin 16.0 mg/L (<20) 10 Malb/Creat Ratio 15.1 MG/GM (0-2 0) Urine Creat For Micro Albumin 107.6 mg/dL Hemoglobin A1c 12/02/2022 [facility] Hemoglobin A1c 5.9 % High (4.0-5.6 ) 11 Calcium 12/02/2022 [facility] Calcium 10.5 mg/dL (8.6-10. 5) Glucose 12/02/2022 [facility] Glucose 95 mg/dL (70-99) Complete Abc With Diff 05/16/2022 [facility] WBC 5.5 K/MM3 (4.0-11. [...] ) Lymph # 1.7 K/MM3 (0.8-3.1 ) [place]# 0.3 K/MM3 Low (0.4-1.3 ) Eo # 0.1 K/MM3 (0.0-0.4 ) Baso # 0.0 K/MM3 (0.0-0.1 ) Abs. Imm Gran 0.0 K/MM3 Neut 59.8 % (44-76) Lymph 31.5 % (15-43) Monocyte 6.2 % (4.5-10. 5) Eo 1.6 % (0-6) Baso 0.5 % (0-2) Imm Gran 0.4 % Urinalysis Complete 05/16/2022 [facility] Appear/Color LIGHT YELLOW 12 SP. [place] 1.018 (1.002-1 .030) Urine PH 5.5 (5.0-8.0 ) Urine Albumin NEGATIVE (Neg) Urine Glucose NEGATIVE (Neg) Urine Ketones NEGATIVE (Neg) Urine Bilirubin NEGATIVE (Neg) Urine Hemoglobin NEGATIVE (Neg) Urine Nitrite NEGATIVE (Neg) Urine Leukocyte NEGATIVE (Neg) Urobilinogen NORMAL mg/dL (Norm) Urine WBCs 1 /HPF (0-5) Urine RBCs 2 /HPF (0-3) Mucus SLIGHT /LPF Squamous Epith <1 /HPF (0-8) Comprehensive Metabolic Panl 05/16/2022 [facility] Glucose 126 mg/dL High [...] 75 ML/MIN/1.73 M2 13 Lipid Panel 05/16/2022 [facility] Cholesterol, Total 188 mg/dL (<200) Triglyceride 105 mg/dL (<150) HDL Chol 48 mg/dL (>39) LDL Cholesterol , Calculated 119 mg/dL (0-130) Non HDL Cholesterol (Calc) 140 mg/dL (<160) 1 Test(s) [id number] lmalonic Acid, Serum was developed and its performance characteristics determined by [employer]. It has not been cleared or approved by the Food and Drug Administration. 2 Vitamin D deficiency has been defined by the [place] of [employer] and an Endocrine Society practice guideline as a level of serum 25-OH vitamin D less than 20 ng/mL (1,2). The Endocrine Society went on to further define vitamin D insufficiency as a level between 21 and 29 ng/mL (2). 1. IOM ([place] of [employer]). 2010. Dietary reference intakes for [...] with health care provider. DIAGNOSTIC USE: The [place] Diabetes Association (ADA) and the World Health [...] GUILLERMINA 06/03/2025 D64.9 Anemia, unspecified Julienne Bell, CANDY ROLLING MACHINE OPERATOR 06/03/2025 E55.9 Vitamin D deficiency, unspec ified Julienne Roberts, CANDY ROLLING MACHINE OPERATOR 06/03/2025 R73.03 Prediabetes Julienne rhodes, CANDY ROLLING MACHINE OPERATOR 06/03/2025 E78.5 Hyperlipidemia, unspecified Julienne Roberts, CANDY ROLLING MACHINE OPERATOR 06/03/2025 E21.3 Hyperparathyroidism, unspeci fied Julienne Roberts [...]
[2025-08-03 18:25] LABS: Appearance Urine Turbid; Glucose Urine UA Negative (Negative); PH 7.0 (5.0-9.0); Specific Gravity - Urine 1.025 (1.005-1.025); UMIC TRIGGER UACC YES
[2025-08-03 18:30] LABS: UACC Culture Trigger YES
--- NOTE | 2025-08-03 19:40 | PC.NURSE ---
gelain requested from pharmacy
[2025-08-03 20:21] VITALS: BP 153/72; PULSE 68; RESP 18; TEMP 36.1; O2SAT 96
== END 2025-08-03 20:21 | disposition home or self-care (01) ==
PROVIDERS: Physician Assistant; Emergency Provider Emergency Medicine
DX: N39.0 Urinary tract infection, site not specified (principal); R39.11 Hesitancy of micturition; N31.8 Other neuromuscular dysfunction of bladder
CPT/HCPCS: 36415; 51798; 74018; 80048; 81001; 85025; 87086; 99283; 99284

== ENCOUNTER → 2025-08-03 17:50 | Outpatient (BNV) | payer MEDICARE, SELFPAY | PROVIDERS: Emergency Provider Emergency Medicine; Visit Provider Radiology Neuroradiology | DX: Z03.89 Encounter for observation for other suspected diseases and conditions ruled out (principal); R19.5 Other fecal abnormalities | CPT/HCPCS: 74018 ==

== ENCOUNTER 2025-08-07 13:42 | Emergency (ER) | payer OTHER, SELFPAY ==
[2025-08-07 13:51] VITALS: BP 164/93; PULSE 63; RESP 18; TEMP 36.1; O2SAT 95; BMI 31.8
--- NOTE | 2025-08-07 13:53 | ED.GENADULT ---
HPI - General Adult General Chief complaint: Urogenital-Male Stated complaint: UTI? Time Seen by Provider: 08/07/25 16:16 History of Present Illness ED Provider: Anibal Putnam MD HPI narrative: [age] male with? Neurogenic bladder frequently straight cathing. Unable to get it and little bit of blood in the urine now. Some lower suprapubic discomfort. Denies fever or chills or flank pain Related Data Home Medications ?Medication ?Instructions ?Recorded ?Confirmed losartan 100 mg tablet 100 mg PO DAILY 10/10/22 05/26/25 pravastatin 40 mg tablet 40 mg PO DAILY 10/10/22 05/26/25 Previous Rx's ?Medication ?Instructions ?Recorded furosemide 20 mg tablet 20 mg PO ONCE PRN edema #20 tabs 11/08/24 apixaban 5 mg tablet (Eliquis) 5 mg PO BID #180 tabs 11/12/24 dronedarone 400 mg tablet (Multaq) 400 mg PO BID #180 tabs 11/12/24 finasteride 5 mg tablet 5 mg PO DAILY 90 days #90 tabs 01/24/25 terazosin 5 mg capsule 5 mg PO BEDTIME 90 days #90 caps 01/24/25 nitrofurantoin 100 mg PO BID 7 days #14 caps 08/03/25 monohydrate/macrocrystals 100 mg capsule (Macrobid) oxybutynin chloride 5 mg tablet 5 mg PO DAILY PRN bladder spasms 7 08/07/25 days #7 tabs Allergies Allergy/AdvReac Type Severity Reaction Status Date / Time No Known Allergies Allergy Verified 08/08/25 12:02 [facility] Past Medical History Medical History CHF (congestive heart failure) Atrial fibrillation with RVR Persistent atrial fibrillation HLD (hyperlipidemia) BPH loc w urin obs/LUTS HTN (hypertension) Social History Social History Household Members: None Housing: Condominium Do you presently have visiting nurse or other home services: No Alcohol intake: former Patient Tobacco Use Status: Never used Tobacco Second Hand Smoke Exposure: No Substance Use Type: Marijuana Advance Directives: No Advance Directives Information Provided: Yes service: No Physical Exam ED Exam Exam: EXAM: Gen: Alert, awake, well appearing, well hydrated. Head: Atraumatic Eyes: Anicteric, Normal conjunctiva. ENT: Moist mucosa, no pallor. ? Neck: Supple. Skin: ?No observable rash or bruising on exposed or examined skin Respiratory: Breathing comfortably, No distress.Clear to auscultation bilaterally, symmetric chest expansion, No wheeze, rales, ronchi. Cardiovascular: Regular rate and rhythm. No murmurs or rub. Well perfused periphery, warm extremities. No edema. ? Abdominal: No focal tenderness. Soft, no objective distension. No palpable masses or obvious organomegaly. ?No guarding, no rebound tenderness or other peritoneal findings. : No flank tenderness. Mild suprapubic fullness Neuro: Alert. Gross movement of all extremities intact. ? Psych: Calm. Cooperative. MSK: No grossly visible deformity. Vital signs: See flowsheet Vital Signs: Vital Signs - 24 hr 08/07/25 13:51 08/07/25 17:59 08/07/25 18:01 Temperature 97 F 98.5 F Pulse Rate 63 59 61 Respiratory Rate 18 18 Blood Pressure 164/93 H 168/92 H Pulse Oximetry 95 95 95 Oxygen Delivery Method Room Air Room Air Room Air BMI result Body Mass Index 31.8 Course Course Course Narrative: Rapid medical examination performed in triage by Karey Cardona PA-C: Patient is a 79 year old assigned male at presenting to the emergency department with increased difficulty straight cathing himself. Detailed physical exam and review of systems are deferred to the life sciences director. Patient placed back in the waiting room pending room availability. 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 Neurogenic bladder with home self catheterizations unable to catheterize himself came in with urinary retention. Was put on nitrofurantoin few days ago he has been adherent with this. Denies systemic infectious symptoms. No fever here. He had a modest amount of urine in the bladder on bedside ultrasound no hydronephrosis. He does have kidney cysts. Previous imaging confirms bladder diverticula and cystic kidneys. No indication for emergent imaging I asked the nurse to place a Cannon he has no growth on the recent urine culture and I think he can complete the Macrobid but does not need any additional antibiotics. Urology follow up home with Cannon and leg bag and instructions Cannon catheterization placement for urinary retention Preliminary Favored Differential Diagnosis: Urinary retention, BPH, UTI, hydronephrosis, kidney injury among additional considered etiologies Testing Interpreted Independently: ?See below for details Radiology or Lab testing Results Reviewed: ?See below for details Consults: ?See below for details Independent Historians/External Chart Reviews: ?See below for details Social Determinants of Health Impacting MDM/Planning: ?See below for details Lab Data MDM Lab Attestation statement: I reviewed the patient's lab results. 08/07/25 16:31 08/07/25 16:31 Labs: Lab Results 08/07/25 08/07/25 Range/Units 16:31 18:05 WBC 6.7 (4.8-10.8) X10*3/uL RBC 3.94 L (4.60-5.80) X10*6/uL Hgb 11.9 L (14.0-18.0) g/dl Hct 36.1 L (42.0-52.0) % MCV 91.6 (80.0-98.0) fL MCH 30.2 (27.0-33.0) pg MCHC 33.0 (31.0-36.0) g/dl RDW 12.5 (11.0-16.0) % Plt Count 166 (160-400) X10*3/uL MPV 10.6 (9.4-12.4) fL Immature Gran % (Auto) 0.2 (0.0-0.4) % Neut % (Auto) 61.0 (45-73) % Lymph % (Auto) 28.3 (20-40) % [place] % (Auto) 9.0 (2-11) % Eos % (Auto) 1.2 (0-4) % Baso % (Auto) 0.3 (0-2) % Lymph # (Auto) 1.9 (1.2-4.9) X10*3/uL [place] # (Auto) 0.6 (0.1-1.2) X10*3/uL Eos # (Auto) 0.1 (0.0-0.4) X10*3/uL Baso # (Auto) 0.0 (0.0-0.2) X10*3/uL Abs Immat Gran (auto) 0.01 (0.00-0.03) X10*3/uL Absolute Neuts (auto) 4.1 (2.0-8.3) x10*3/uL Absolute Nucleated RBC 0.000 (0.0-0.012) X10*3/uL Nucleated RBC % (auto) 0.0 (0.0-0.2) /100WBC Sodium 142 (135-145) mmol/L Potassium 4.4 (3.3-5.1) mmol/L Chloride 110 H (96-108) mmol/L Carbon Dioxide 27 (22-29) mmol/L Anion Gap 9 L (12-20) BUN 15 (9-16) mg/dL Creatinine 1.39 (0.5-1.4) mg/dL Estim Creat Clear Calc 60.6 Estimated GFR 49 Random Glucose 94 (60-115) mg/dL Calcium 10.4 H (8.4-10.2) mg/dL Urine Color [place] Urine Appearance Cloudy Urine pH 6.0 (5.0-9.0) Ur Specific [place] 1.015 (1.005-1.025) Urine Protein 300 (3+) H (Neg-Trace) mg/dL Urine Glucose (UA) Negative (Negative) mg/dL Urine Ketones Negative (Negative) mg/dL Urine Blood Large (3+) H (Negative) Urine Nitrite Negative (Negative) Ur Leukocyte Esterase Moderate (2+) H (Negative) Urine RBC >20 H (0-2) /HPF Urine WBC 0-5 (0-5) /HPF Ur Squamous Epith Cells 3-5 (0-2) /HPF Urine Bacteria None Seen (None Seen) Hyaline Casts 0-2 (0-2) /LPF Discharge Plan Discharge Clinical Impression: Acute on chronic urinary retention Patient Disposition: Home, Self-Care Instructions: Urinary Retention in Men (ED) Additional Instructions: DISCHARGE DIAGNOSES: Urinary retention acute on chronic worsening requiring Cannon catheter HISTORY OF PRESENTATION: ?Unable to void at least 1 day EMERGENCY DEPARTMENT COURSE,TESTS, TREATMENTS: While in the ED today you had a Cannon catheter placed DISCHARGE MEDICATIONS: ?[We have made no changes to your regular medication regimen] FOLLOW-UP: ?Call your primary or general physician soon as possible to discuss your symptoms, your ED visit and to discuss follow up plans Call your urologist to discuss follow up INSTRUCTIONS ?& RETURN PRECAUTIONS: If any symptoms change first call your primary physician, if it is after-hours your primary doctors office should have a provider pinion staker you can speak with. If the symptoms are severe or very concerning to you then call 911 or return to the ED. Return for high fever or if the Cannon is not producing at least 250 mL of urine over a 12 hour. Anibal Putnam MD Emergency Physician [facility] Prescriptions: New oxybutynin chloride 5 mg tablet 5 mg PO DAILY PRN (Reason: bladder spasms) 7 Days Qty: 7 0RF No Action furosemide 20 mg tablet 20 mg PO ONCE PRN (Reason: edema) Qty: 20 0RF Rx Instructions: Take only with excess swelling or weight gain. Do not take daily. Eliquis 5 mg tablet 5 mg PO BID Qty: 180 3RF Multaq 400 mg tablet 400 mg PO BID Qty: 180 3RF nitrofurantoin monohyd/m-cryst [Macrobid] 100 mg capsule 100 mg PO BID 7 Days Qty: 14 0RF Rx Instructions: must administer with a meal/food losartan 100 mg tablet 100 mg PO DAILY pravastatin 40 mg tablet 40 mg PO DAILY finasteride 5 mg tablet 5 mg PO DAILY 90 Days Qty: 90 1RF terazosin 5 mg capsule 5 mg PO BEDTIME 90 Days Qty: 90 1RF Discharge Date/Time: 08/07/25 18:58 Print Language: [place]ijani
[2025-08-07 16:37] LABS: MANUAL DIFF FLAG NO
[2025-08-07 16:39] LABS: Hematocrit 36.1 % (42.0-52.0); Hemoglobin 11.9 g/dl (14.0-18.0); Imm Gran Pct Auto 0.2 % (0.0-0.4); Mean Corpuscular HGB Conc 33.0 g/dl (31.0-36.0); Mean Corpuscular Hemoglobin 30.2 pg (27.0-33.0); Mean Corpuscular Volume 91.6 fL (80.0-98.0); Platelet Count 166 X10*3/uL (160-400); Red Blood Count 3.94 X10*6/uL (4.60-5.80); White Blood Count 6.7 X10*3/uL (4.8-10.8)
[2025-08-07 16:40] LABS: Imm Gran Abs Auto 0.01 X10*3/uL (0.00-0.03); Lymphocytes Absolute Auto 1.9 X10*3/uL (1.2-4.9); NRBC Abs Auto 0.000 X10*3/uL (0.0-0.012); NRBC Pct Auto 0.0 /100WBC (0.0-0.2)
[2025-08-07 16:51] LABS: Anion Gap 9 (12-20); Blood Urea Nitrogen 15 mg/dL (9-16); Calcium 10.4 mg/dL (8.4-10.2); Carbon Dioxide 27 mmol/L (22-29); Chloride 110 mmol/L (96-108); Creatinine Clr Calc Pharmacy 60.6; Estimated Glomerular Filt Rate 49; Potassium 4.4 mmol/L (3.3-5.1); Sodium 142 mmol/L (135-145)
[2025-08-07 17:59] VITALS: BP 168/92; PULSE 59; RESP 18; TEMP 36.9; O2SAT 95
[2025-08-07 18:01] VITALS: PULSE 61; O2SAT 95
--- OUTSIDE RECORDS SUMMARY | 2025-08-07 18:15 | XMS_ITS | Continuity of Care Document ---
Author Organization [facility] [address] [facility] [address] [place] [address] Phone [phone] Care Team Providers Care Care Aid Name Role Phone Julienne Roberts CNP Care Team Informatio n Vascular Physician [phone] Problems Active Problems Provider Date Essential hypertension [...] Medications SIG Qnty Indications Ordering Provider Date [id number] Tablets 1 by mouth every day 90tabs Ernie Galeano M.D. 12/06/2022 Terazosin HCL5mg Capsules Take One Capsule By Mouth Every Day In The Evening 90caps Ernie Izenstein, M.D. 12/06/2022 Losartan [id number] Tablets Take One Tablet By Mouth Every Day 90taekaterina Oneil M.D. Pravastatin [id number] Tablets Take One Tablet By Mouth Every Day 90taekaterina Oneil M.D. [id number] Tablets Take One Tablet By Mouth Twice A Day Jarad Munoz Ficznoz7vp Tablets Take 1 tab twice day Jarad Munoz [id number] Tablets Take 1 Tablet By Mouth prn [...] 0.0 x10E3/uL 0.0-0.1 NRBC [place] Hematology Comments: [facility] Lipid Panel 07/22/2024 [facility] Cholesterol, Total 177 mg/dL 100-199 Triglycerides 180 mg/dL High 0-149 HDL Cholesterol 51 mg/dL >39 VLDL Cholestero l Saad 31 mg/dL 5-40 LDL Chol Calc ([facility]) 95 mg/dL 0-99 LDL Calc Comment: [facility] Comp. Metabolic Panel (14) 07/22/2024 [facility] [...] pg/mL High 15-65 Comprehensive Metabolic Panl 04/06/2023 [facility] Glucose 103 mg/dL High [...] 72 ML/MIN/1.73 M2 8 Lipid Panel 04/06/2023 [facility] Cholesterol, Total 183 mg/dL (<200) Triglyceride 70 mg/dL (<150) 9 HDL Chol 61 mg/dL (>39) LDL Cholesterol , Calculated 108 mg/dL (0-130) Non HDL Cholesterol (Calc) 122 mg/dL (<160) Complete Abc With Diff 04/06/2023 [facility] WBC 5.8 K/MM3 (4.0-11. [...] ) Lymph # 2.7 K/MM3 (0.8-3.1 ) [place]# 0.5 K/MM3 (0.4-1.3 ) Eo # 0.1 K/MM3 (0.0-0.4 ) Baso # 0.0 K/MM3 (0.0-0.1 ) Abs. Imm Gran 0.0 K/MM3 Neut 41.9 % Low (44-76) Lymph 46.2 % High (15-43) Monocyte 8.8 % (4.5-10. 5) Eo 2.4 % (0-6) Baso 0.5 % (0-2) Imm Gran 0.2 % Urinary Microalbumin 04/06/2023 [facility] Micro-Albumin 16.0 mg/L (<20) 10 Malb/Creat Ratio 15.1 MG/GM (0-2 0) Urine Creat For Micro Albumin 107.6 mg/dL Hemoglobin A1c 12/02/2022 [facility] Hemoglobin A1c 5.9 % High (4.0-5.6 ) 11 Calcium 12/02/2022 [facility] Calcium 10.5 mg/dL (8.6-10. 5) Glucose 12/02/2022 [facility] Glucose 95 mg/dL (70-99) Complete Abc With Diff 05/16/2022 [facility] WBC 5.5 K/MM3 (4.0-11. [...] ) Lymph # 1.7 K/MM3 (0.8-3.1 ) [place]# 0.3 K/MM3 Low (0.4-1.3 ) Eo # 0.1 K/MM3 (0.0-0.4 ) Baso # 0.0 K/MM3 (0.0-0.1 ) Abs. Imm Gran 0.0 K/MM3 Neut 59.8 % (44-76) Lymph 31.5 % (15-43) Monocyte 6.2 % (4.5-10. 5) Eo 1.6 % (0-6) Baso 0.5 % (0-2) Imm Gran 0.4 % Urinalysis Complete 05/16/2022 [facility] Appear/Color LIGHT YELLOW 12 SP. [place] 1.018 (1.002-1 .030) Urine PH 5.5 (5.0-8.0 ) Urine Albumin NEGATIVE (Neg) Urine Glucose NEGATIVE (Neg) Urine Ketones NEGATIVE (Neg) Urine Bilirubin NEGATIVE (Neg) Urine Hemoglobin NEGATIVE (Neg) Urine Nitrite NEGATIVE (Neg) Urine Leukocyte NEGATIVE (Neg) Urobilinogen NORMAL mg/dL (Norm) Urine WBCs 1 /HPF (0-5) Urine RBCs 2 /HPF (0-3) Mucus SLIGHT /LPF Squamous Epith <1 /HPF (0-8) Comprehensive Metabolic Panl 05/16/2022 [facility] Glucose 126 mg/dL High [...] 75 ML/MIN/1.73 M2 13 Lipid Panel 05/16/2022 [facility] Cholesterol, Total 188 mg/dL (<200) Triglyceride 105 mg/dL (<150) HDL Chol 48 mg/dL (>39) LDL Cholesterol , Calculated 119 mg/dL (0-130) Non HDL Cholesterol (Calc) 140 mg/dL (<160) 1 Test(s) [id number]-[id number] lmalonic Acid, Serum was developed and its performance characteristics determined by [employer]. It has not been cleared or approved by the Food and Drug Administration. 2 Vitamin D deficiency has been defined by the [place] of Medicine and an Endocrine Society practice guideline as a level of serum 25-OH vitamin D less than 20 ng/mL (1,2). The Endocrine Society went on to further define vitamin D insufficiency as a level between 21 and 29 ng/mL (2). 1. IOM ([place] of Medicine). 2010. Dietary reference intakes for [...] with health care provider. DIAGNOSTIC USE: The [place] Diabetes Association (ADA) and the World Health [...] GUILLERMINA 06/03/2025 D64.9 Anemia, unspecified Julienne Bell, COMMUNICATIONS TOWER CLIMBER 06/03/2025 E55.9 Vitamin D deficiency, unspec ified Julienne Roberts, COMMUNICATIONS TOWER CLIMBER 06/03/2025 R73.03 Prediabetes Julienne rhodes, COMMUNICATIONS TOWER CLIMBER 06/03/2025 E78.5 Hyperlipidemia, unspecified Julienne Roberts, COMMUNICATIONS TOWER CLIMBER 06/03/2025 E21.3 Hyperparathyroidism, unspeci fied Julienne Roberts [...]
[2025-08-07 18:21] LABS: Appearance Urine Cloudy; Glucose Urine UA Negative (Negative); PH 6.0 (5.0-9.0); Specific Gravity - Urine 1.015 (1.005-1.025); UMIC TRIGGER UACC YES
[2025-08-07 18:32] LABS: UACC Culture Trigger YES
--- NOTE | 2025-08-07 18:57 | PC.NURSE ---
18 fr balbuena cath placed with 400cc urine output. patient tolerated well. given leg bag to go home with. educated patient on how to change from leg bag to larger bag.
== END 2025-08-07 18:58 | disposition home or self-care (01) ==
PROVIDERS: Emergency Provider Emergency Medicine
DX: R33.9 Retention of urine, unspecified (principal); N31.9 Neuromuscular dysfunction of bladder, unspecified; I48.91 Unspecified atrial fibrillation; I10 Essential (primary) hypertension
CPT/HCPCS: 36415; 51702; 76705; 80048; 81001; 85025; 87086; 99284

== ENCOUNTER 2025-08-08 11:36 | Emergency (ER) | payer OTHER, SELFPAY ==
[2025-08-08 11:58] VITALS: BP 180/89; PULSE 63; RESP 18; TEMP 36.4; O2SAT 93; BMI 31.6
--- NOTE | 2025-08-08 11:59 | ED_ITS ---
HPI - Male Genitourinary General Chief complaint: Urogenital-Male Stated complaint: catheter issues Time Seen by Provider: 08/08/25 12:45 History of Present Illness HPI Narrative: Patient is 79 years old has a history of Balbuena catheter baseline. Patient has a history of urinary retention. Presented today because he was unaware there was a cap on his Balbuena catheter and the Balbuena catheter stopped draining. Patient came to the ED. There is no chest pain no systemic complaints. Related Data Home Medications ?Medication ?Instructions ?Recorded ?Confirmed losartan 100 mg tablet 100 mg PO DAILY 10/10/22 pravastatin 40 mg tablet 40 mg PO DAILY 10/10/2205/03 Previous Rx's ?Medication ?Instructions ?Recorded furosemide 20 mg tablet 20 mg PO ONCE PRN edema #20 tabs 11/08/24 apixaban 5 mg tablet (Eliquis) 5 mg PO BID #180 tabs 0 11/12/24 dronedarone 400 mg tablet (Multaq) 400 mg PO BID #180 tabs 11/12/24 finasteride 5 mg tablet 5 mg PO DAILY 90 days #90 ta bs 01/24/25 terazosin 5 mg capsule 5 mg PO BEDTIME 90 days #90 caps 01/24/25 nitrofurantoin 100 mg PO BID 7 days #14 cap s 08/03/25 monohydrate/macrocrystals 100 mg capsule (Macrobid) oxybutynin chloride 5 mg tablet 5 mg PO DAILY PRN blad bernardino spasms 7 08/07/25 days #7 tabs Allergies Allergy/AdvReac Type Severity Reaction Status Date / Time No Known Allergies Allergy Verified 08/08/25 12:02 Review of Systems 2 Review of Systems: No fever no chills no chest pain or shortness of breath no abdominal pain no nausea no vomiting no diarrhea Yes all other systems are reviewed and are negative [facility] Past Medical History Attestation statement: The following information was validated with the patient. Medical History CHF (congestive heart failure) Atrial fibrillation with RVR Persistent atrial fibrillation HLD (hyperlipidemia) BPH loc w urin obs/LUTS HTN (hypertension) Social History Social History Household Members: None Housing: Condominium Do you presently have visiting nurse or other home services: No Alcohol intake: former Patient Tobacco Use Status: Never used Tobacco Second Hand Smoke Exposure: No Substance Use Type: Marijuana Advance Directives: No Advance Directives Information Provided: Yes service: No Physical Exam 2 Exam: Exam: Appearance: Alert. Oriented X3. No acute distress. Eyes: Pupils equal, round and reactive to light. ENT: Pharynx normal. Neck: Normal inspection. Neck supple. No lymph nodes noted. No crepitus CVS: Normal heart rate and rhythm. Pulses normal. Normal S1 and S2 Respiratory: No respiratory distress. Breath sounds normal. No Wheezing. No rales Abdomen: Soft and nontender. No rigidity. No distention. good BS x4 Skin: Skin warm and dry. Normal skin color. Normal skin turgor. Extremities: No lower extremity edema. Neurovascular intact to all extremities. No Lacerations. No Rash Neuro: Oriented X 3. No motor deficit. No sensory deficit. Moving all extermities. No slurred speech Vital Signs: Vital Signs: Last Vital Signs Temp 97.5 F 08/08/25 11:58 Pulse 63 08/08/25 11:58 Resp 18 08/08/25 11:58 BP 180/89 H 08/08/25 11:58 Pulse Ox 93 08/08/25 11:58 O2 Del Method Room Air 08/08/25 11:58 BMI result Body Mass Index 31.6 Course Course Course Narrative: This is an RME: Additional HPI, ROS, PE not included below will be deferred to primary provider. RME assessment and note performed by: Kiera Stockton PA-C This is a 9-rgg[age]-nlt-male, with a hx of CHF, a fib with rvr on eliquis, HLD, CPH, htn, who presents to the ER with a complaint of catheter malfunction. Pt has been seen here 3 times over the last week due to urinary issues. Reports that he had a balbuena catheter placed yesterday and since 6am this morning the catheter has not been draining. Plan: UA, bladder scan Medical Decision Making Medical Decision Making MDM Narrative: It turns out patient had a clip on his Balbuena that is why the Balbuena was not draining. After the clip was turned to the off position. There is good urine flow. Postvoid bladder scan was negative. Patient's urine showed colonization but CBC and chemistry were normal. No need for antibiotics. Will discharge patient home close follow-up on an outpatient basis. Hemoglobin is 11.6. Patient is no distress symptoms completely resolved. Differential Diagnosis Differential Diagnoses: The differential diagnosis associated with the presentation includes Urinary retention Balbuena malfunction kidney failure Lab Data MDM Lab Attestation statement: I reviewed the patient's lab results. 08/08/25 12:55 08/08/25 12:55 Labs: Lab Results 08/08/25 Range/Units 12:55 WBC 6.5 (4.8-10.8) X10*3/uL RBC 3.88 L (4.60-5.80) X10*6/uL Hgb 11.6 L (14.0-18.0) g/dl Hct 35.5 L (42.0-52.0) % MCV 91.5 (80.0-98.0) fL MCH 29.9 (27.0-33.0) pg MCHC 32.7 (31.0-36.0) g/dl RDW 12.8 (11.0-16.0) % Plt Count 163 (160-400) X10*3/uL MPV 10.7 (9.4-12.4) fL Immature Gran % (Auto) 0.3 (0.0-0.4) % Neut % (Auto) 67.1 (45-73) % Lymph % (Auto) 22.5 (20-40) % [place] % (Auto) 8.6 (2-11) % Eos % (Auto) 1.2 (0-4) % Baso % (Auto) 0.3 (0-2) % Lymph # (Auto) 1.5 (1.2-4.9) X10*3/uL [place] # (Auto) 0.6 (0.1-1.2) X10*3/uL Eos # (Auto) 0.1 (0.0-0.4) X10*3/uL Baso # (Auto) 0.0 (0.0-0.2) X10*3/uL Abs Immat Gran (auto) 0.02 (0.00-0.03) X10*3/uL Absolute Neuts (auto) 4.4 (2.0-8.3) x10*3/uL Absolute Nucleated RBC 0.000 (0.0-0.012) X10*3/uL Nucleated RBC % (auto) 0.0 (0.0-0.2) /100WBC Sodium 141 (135-145) mmol/L Potassium 4.1 (3.3-5.1) mmol/L Chloride 112 H (96-108) mmol/L Carbon Dioxide 25 (22-29) mmol/L Anion Gap 8 L (12-20) BUN 20 H (9-16) mg/dL Creatinine 1.38 (0.5-1.4) mg/dL Estim Creat Clear Calc 60.8 Estimated GFR 50 Random Glucose 99 (60-115) mg/dL Calcium 10.2 (8.4-10.2) mg/dL Urine Color Dark Yellow Urine Appearance Cloudy Urine pH 6.5 (5.0-9.0) Ur Specific [place] 1.020 (1.005-1.025) Urine Protein 300 (3+) H (Neg-Trace) mg/dL Urine Glucose (UA) Negative (Negative) mg/dL Urine Ketones Negative (Negative) mg/dL Urine Blood Large (3+) H (Negative) Urine Nitrite Negative (Negative) Ur Leukocyte Esterase Moderate (2+) H (Negative) Urine RBC >20 H (0-2) /HPF Urine WBC 21-50 H (0-5) /HPF Ur Squamous Epith Cells 0-2 (0-2) /HPF Urine Bacteria None Seen (None Seen) Hyaline Casts 0-2 (0-2) /LPF Chronic Conditions History of urinary retention history of atrial fibrillation on blood thinners Social Determinants Patient?s care significantly limited by Social Determinants of Health including: Problems related to primary support group Discharge Plan Discharge Clinical Impression: Acute urinary retention Patient Disposition: Home, Self-Care Instructions: How to Change a Catheter Drainage Bag (DC), Urinary Retention in Men (ED) Prescriptions: No Action furosemide 20 mg tablet 20 mg PO ONCE PRN (Reason: edema) Qty: 20 0RF Rx Instructions: Take only with excess swelling or weight gain. Do not take daily. Eliquis 5 mg tablet 5 mg PO BID Qty: 180 3RF Multaq 400 mg tablet 400 mg PO BID Qty: 180 3RF oxybutynin chloride 5 mg tablet 5 mg PO DAILY PRN (Reason: bladder spasms) 7 Days Qty: 7 0RF nitrofurantoin monohyd/m-cryst [Macrobid] 100 mg capsule 100 mg PO BID 7 Days Qty: 14 0RF Rx Instructions: must administer with a meal/food losartan 100 mg tablet 100 mg PO DAILY pravastatin 40 mg tablet 40 mg PO DAILY finasteride 5 mg tablet 5 mg PO DAILY 90 Days Qty: 90 1RF terazosin 5 mg capsule 5 mg PO BEDTIME 90 Days Qty: 90 1RF Referrals: Michael Lambert MD [Physician, Urology] - 08/12/25 Print Language: Welsh
[2025-08-08 13:12] LABS: MANUAL DIFF FLAG NO
[2025-08-08 13:14] LABS: Hematocrit 35.5 % (42.0-52.0); Hemoglobin 11.6 g/dl (14.0-18.0); Imm Gran Abs Auto 0.02 X10*3/uL (0.00-0.03); Imm Gran Pct Auto 0.3 % (0.0-0.4); Lymphocytes Absolute Auto 1.5 X10*3/uL (1.2-4.9); Mean Corpuscular HGB Conc 32.7 g/dl (31.0-36.0); Mean Corpuscular Hemoglobin 29.9 pg (27.0-33.0); Mean Corpuscular Volume 91.5 fL (80.0-98.0); NRBC Abs Auto 0.000 X10*3/uL (0.0-0.012); NRBC Pct Auto 0.0 /100WBC (0.0-0.2); Platelet Count 163 X10*3/uL (160-400); Red Blood Count 3.88 X10*6/uL (4.60-5.80); White Blood Count 6.5 X10*3/uL (4.8-10.8)
[2025-08-08 13:15] LABS: Appearance Urine Cloudy; Glucose Urine UA Negative (Negative); PH 6.5 (5.0-9.0); Specific Gravity - Urine 1.020 (1.005-1.025); UMIC TRIGGER UACC YES
[2025-08-08 13:19] LABS: UACC Culture Trigger YES
[2025-08-08 13:36] LABS: Anion Gap 8 (12-20); Blood Urea Nitrogen 20 mg/dL (9-16); Calcium 10.2 mg/dL (8.4-10.2); Carbon Dioxide 25 mmol/L (22-29); Chloride 112 mmol/L (96-108); Creatinine Clr Calc Pharmacy 60.8; Estimated Glomerular Filt Rate 50; Potassium 4.1 mmol/L (3.3-5.1); Sodium 141 mmol/L (135-145)
--- OUTSIDE RECORDS SUMMARY | 2025-08-08 14:25 | XMS_ITS | Continuity of Care Document ---
Author Organization [facility] [address] [facility] [facility] [address] [place] [address] Phone [phone] Care Team Providers Care Doweling Machine Operator Name Role Phone Julienne Roberts CNP Care Team Informatio n Aluminum Boat Inspector [phone] Problems Active Problems Provider Date Essential hypertension [...] Medications SIG Qnty Indications Ordering Provider Date Pndpfkpcucj1us Tablets 1 by mouth every day 90tabs Ernie Galeano M.D. 12/06/2022 Terazosin HCL5mg Capsules Take One Capsule By Mouth Every Day In The Evening 90caps Ernie Izenstein, M.D. 12/06/2022 Losartan [id number] Tablets Take One Tablet By Mouth Every Day 90taekaterina Oneil M.D. Pravastatin Jvqlnr11pp Tablets Take One Tablet By Mouth Every Day 90taekaterina Oneil M.D. Secqcl825mx Tablets Take One Tablet By Mouth Twice A Day Jarad Munoz Ixqzfmu7yf Tablets Take 1 tab twice day Jarad Munoz Ggzqpeikfj28sv Tablets Take 1 Tablet By Mouth prn [...] 0.0 x10E3/uL 0.0-0.1 NRBC [place] [facility] Comments: [facility] Lipid Panel 07/22/2024 [facility] Cholesterol, Total 177 mg/dL 100-199 Triglycerides 180 mg/dL High 0-149 HDL Cholesterol 51 mg/dL >39 VLDL Cholestero l Saad 31 mg/dL 5-40 LDL Chol Calc ([facility]) 95 mg/dL 0-99 LDL Calc Comment: [facility] Comp. Metabolic Panel (14) 07/22/2024 [facility] Glucose [...] pg/mL High 15-65 Comprehensive Metabolic Panl 04/06/2023 [facility] Glucose 103 mg/dL High [...] 72 ML/MIN/1.73 M2 8 Lipid Panel 04/06/2023 [facility] Cholesterol, Total 183 mg/dL (<200) Triglyceride 70 mg/dL (<150) 9 HDL Chol 61 mg/dL (>39) LDL Cholesterol , Calculated 108 mg/dL (0-130) Non HDL Cholesterol (Calc) 122 mg/dL (<160) Complete Abc With Diff 04/06/2023 [facility] WBC 5.8 K/MM3 (4.0-11. [...] ) Lymph # 2.7 K/MM3 (0.8-3.1 ) [place]# 0.5 K/MM3 (0.4-1.3 ) Eo # 0.1 K/MM3 (0.0-0.4 ) Baso # 0.0 K/MM3 (0.0-0.1 ) Abs. Imm Gran 0.0 K/MM3 Neut 41.9 % Low (44-76) Lymph 46.2 % High (15-43) Monocyte 8.8 % (4.5-10. 5) Eo 2.4 % (0-6) Baso 0.5 % (0-2) Imm Gran 0.2 % Urinary Microalbumin 04/06/2023 [facility] Micro-Albumin 16.0 mg/L (<20) 10 Malb/Creat Ratio 15.1 MG/GM (0-2 0) Urine Creat For Micro Albumin 107.6 mg/dL Hemoglobin A1c 12/02/2022 [facility] Hemoglobin A1c 5.9 % High (4.0-5.6 ) 11 Calcium 12/02/2022 [facility] Calcium 10.5 mg/dL (8.6-10. 5) Glucose 12/02/2022 [facility] Glucose 95 mg/dL (70-99) Complete Abc With Diff 05/16/2022 [facility] WBC 5.5 K/MM3 (4.0-11. [...] ) Lymph # 1.7 K/MM3 (0.8-3.1 ) [place]# 0.3 K/MM3 Low (0.4-1.3 ) Eo # 0.1 K/MM3 (0.0-0.4 ) Baso # 0.0 K/MM3 (0.0-0.1 ) Abs. Imm Gran 0.0 K/MM3 Neut 59.8 % (44-76) Lymph 31.5 % (15-43) Monocyte 6.2 % (4.5-10. 5) Eo 1.6 % (0-6) Baso 0.5 % (0-2) Imm Gran 0.4 % Urinalysis Complete 05/16/2022 [facility] Appear/Color LIGHT YELLOW 12 SP. [place] 1.018 (1.002-1 .030) Urine PH 5.5 (5.0-8.0 ) Urine Albumin NEGATIVE (Neg) Urine Glucose NEGATIVE (Neg) Urine Ketones NEGATIVE (Neg) Urine Bilirubin NEGATIVE (Neg) Urine Hemoglobin NEGATIVE (Neg) Urine Nitrite NEGATIVE (Neg) Urine Leukocyte NEGATIVE (Neg) Urobilinogen NORMAL mg/dL (Norm) Urine WBCs 1 /HPF (0-5) Urine RBCs 2 /HPF (0-3) Mucus SLIGHT /LPF Squamous Epith <1 /HPF (0-8) Comprehensive Metabolic Panl 05/16/2022 [facility] Glucose 126 mg/dL High [...] 75 ML/MIN/1.73 M2 13 Lipid Panel 05/16/2022 [facility] Cholesterol, Total 188 mg/dL (<200) Triglyceride 105 mg/dL (<150) HDL Chol 48 mg/dL (>39) LDL Cholesterol , Calculated 119 mg/dL (0-130) Non HDL Cholesterol (Calc) 140 mg/dL (<160) 1 Test(s) [id number] lmalonic Acid, Serum was developed and its performance characteristics determined by [employer]. It has not been cleared or approved by the Food and Drug Administration. 2 Vitamin D deficiency has been defined by the [place] of Medicine and an Endocrine Society practice guideline as a level of serum 25-OH vitamin D less than 20 ng/mL (1,2). The Endocrine Society went on to further define vitamin D insufficiency as a level between 21 and 29 ng/mL (2). 1. IOM ([place] of [employer]). 2010. Dietary reference intakes for [...] with health care provider. DIAGNOSTIC USE: The [place] Diabetes Association (ADA) and the World Health [...] GUILLERMINA 06/03/2025 D64.9 Anemia, unspecified Julienne Bell, JOY LOADING MACHINE OPERATOR 06/03/2025 E55.9 Vitamin D deficiency, unspec ified Julienne Roberts, JOY LOADING MACHINE OPERATOR 06/03/2025 R73.03 Prediabetes Julienne rhodes, JOY LOADING MACHINE OPERATOR 06/03/2025 E78.5 Hyperlipidemia, unspecified Julienne Roberts, JOY LOADING MACHINE OPERATOR 06/03/2025 E21.3 Hyperparathyroidism, unspeci fied [...]
[2025-08-08 15:12] VITALS: BP 162/75; PULSE 69; RESP 15; TEMP 36.6; O2SAT 100
== END 2025-08-08 15:13 | disposition home or self-care (01) ==
PROVIDERS: Physician Assistant Medical; Emergency Provider Emergency Medicine Emergency Medical Services
DX: R33.9 Retention of urine, unspecified (principal); Z79.899 Other long term (current) drug therapy
CPT/HCPCS: 36415; 51798; 80048; 81001; 85025; 87086; 99284

== ENCOUNTER 2025-08-15 08:05 | Outpatient (AMB) | payer MEDICARE, SELFPAY ==
--- NOTE | 2025-08-15 08:08 | MHC.OFFVIS ---
Intake Visit Reasons: 6m/US/PVR/UA check Intake Note: Patient is present for PVR/US/UA Urology Med: Terazosin, Finasteride Antibiotic Allergy: None Blood Thinner: Supriya Patient has balbuena catheter in place from [facility] Renal US- 07/12/2025 Last PSA- 3.14 12/11/2018 Farm Laborer Required: No Accompanied by: Self / Same As Patient Allergies No Known Allergies Allergy (Verified 08/15/25 08:16) HPI Comments Details: Artis is a pleasant male. He is a patient of Dr. Galeano. Presents for the following urologic conditions - lower urinary tract symptoms with urinary retention - bladder diverticulum - neurogenic bladder Recent episode of retention Balbuena catheter placed Previously had been on clean intermittent catheterization Expected to maintain clean intermittent catheterization for the foreseeable future - 4-5 x a day - no prophylaxis - finasteride to enable easy catheterization Continue with six-month surveillance Lower urinary tract symptoms Episode of retention seen through emergency room Balbuena catheter placed with 1 L Happened in September 2022 Had been on terazosin for many years 5 mg Current therapy finasteride 11/24 cystoscopy with large bladder diverticulum and cellules Started [facility] 05/24 [facility] Medical History CHF (congestive heart failure) Atrial fibrillation with RVR Persistent atrial fibrillation HLD (hyperlipidemia) BPH loc w urin obs/LUTS HTN (hypertension) Social History Household Members: None Housing: Condominium Do you presently have visiting nurse or other home services: No Alcohol intake: former Patient Tobacco Use Status: Never used Tobacco Second Hand Smoke Exposure: No Substance Use Type: Marijuana service: No Review of Systems Const Denies chills and Denies fever(s) Card Reports no additional complaints and Denies syncope Resp Denies cough GI Denies abdominal pain and Denies heartburn Reports as per HPI and Denies change in libido Neuro Denies syncope Psych Denies change in libido Endo Denies change in libido Physical Exam Const General: cooperative, healthy appearing, comfortable and no acute distress Orientation/consciousness: patient oriented x3 HEENT Face and sinus: Yes normal facial exam Mouth: moist mucous membranes Neck Neck: Yes normal visual inspection, Yes full ROM and Yes trachea midline Chest Chest palpation & inspection: normal inspection of the chest Resp Effort & Inspection: normal respiratory effort, able to speak in complete sentences and no respiratory distress GI Inspection: Yes normal to inspection Back/Spine/Pelvis Cervical Spine: normal cervical lordosis Thoracic/Lumbar Spine: thoracic and lumbar spine normal to inspection Skin General skin exam: no rashes or lesions noted Neuro General: patient oriented x3, gait normal, tone normal and moves all extremities Extrem General: Yes normal to inspection and Yes capillary refill normal Assessment & Plan Assessment & Plan (1) BPH loc w urin obs/LUTS: Code(s): N40.1 - Benign prostatic hyperplasia with lower urinary tract symptoms Category: Medical (2) Urinary retention: Code(s): R33.9 - Retention of urine, unspecified Category: Medical (3) Bladder diverticulum: Code(s): N32.3 - Diverticulum of bladder Category: Medical Plan Remove catheter on Monday Patient Instructions: This note is constructed using voice recognition software. While every effort has been made to ensure accuracy [employer] systems administrator errors may have been included. Imaging studies, laboratory and physical exam results were discussed and reviewed in detail. No major barriers to patient understanding were identified. An opportunity to ask questions regarding the treatment plan was provided. All questions were answered. The patient expressed understanding and agreement with the above treatment plan. The patient is aware they should contact our office by phone for worsening of their current condition or the appearance of new urologic symptoms. Compliance is encouraged with any medications and followup testing that is ordered. It is a privilege to participate in the urologic care of your patient. If you have any questions or concerns regarding treatment for the above conditions, or other urologic issues, please do not hesitate to contact me. The office telephone contact is [phone]. Sincerely, Dr Michael Lambert MD, JEAN CARL[facility] - Urology Compassionate Specialist Care for the Genitourinary System Coding Level of Care Code Est Pt Level 3 (45907) Complex EM visit Add On G2211 Diagnoses BPH loc w urin obs/LUTS N40.1 Urinary retention R33.9 Bladder diverticulum N32.3
== END 2025-08-15 09:05 | disposition home or self-care (01) ==
LOC: HO.HUSH 08:06
PROVIDERS: PCP Internal Medicine Endocrinology, Diabetes & Metabolism; Visit Provider Urology
DX: N40.1 Benign prostatic hyperplasia with lower urinary tract symptoms (principal); R33.9 Retention of urine, unspecified; N32.3 Diverticulum of bladder
CPT/HCPCS: 99213; G2211

== ENCOUNTER → 2025-08-15 08:05 | Outpatient (BNVA) | payer MEDICARE, SELFPAY | PROVIDERS: PCP Internal Medicine Endocrinology, Diabetes & Metabolism; Visit Provider Urology | DX: N40.1 Benign prostatic hyperplasia with lower urinary tract symptoms (principal); R33.9 Retention of urine, unspecified; N32.3 Diverticulum of bladder; Z79.01 Long term (current) use of anticoagulants | CPT/HCPCS: 99212 ==